=== PATIENT | female | born 1945 | race Caucasian/White ===

== ENCOUNTER 2023-08-19 11:52 | Outpatient (REF) | payer MEDICARE, SELFPAY | END 2023-08-19 11:53 | disposition home or self-care (01) | LOC: HO.LNP 11:52 | PROVIDERS: Visit Provider Internal Medicine | DX: Z00.00 Encounter for general adult medical examination without abnormal findings (principal); E11.9 Type 2 diabetes mellitus without complications; E55.9 Vitamin D deficiency, unspecified; I10 Essential (primary) hypertension; R82.90 Unspecified abnormal findings in urine | CPT/HCPCS: 80053; 80061; 81001; 82043; 82306; 82570; 83036; 85025; 87086 ==

== ENCOUNTER 2023-09-25 10:45 | Outpatient (REF) | payer MEDICARE, SELFPAY ==
[2023-09-25 11:00] LABS: Appearance Urine Clear; Color Urine Yellow; Glucose Urine UA Negative (Negative); Leukocyte Esterase Urine Small (1+) (Negative); Nitrite Urine Negative (Negative); Specific Gravity - Urine <= 1.005 (1.005-1.025); UMIC TRIGGER UACC YES; Urine Blood Negative (Negative); Urine Ketones Negative (Negative); Urine Protein 30 (1+) mg/dL (Neg-Trace)
[2023-09-25 11:03] LABS: Bacteria Urine 4+ (None Seen); Hyaline Casts Urine 0-2 /LPF (0-2); RBC Urine 0-2 /HPF (0-2); Squamous Epithelial Cell Urine 0-2 /HPF (0-2); UACC Culture Trigger YES
== END 2023-09-25 10:46 | disposition home or self-care (01) ==
LOC: HO.LNP 10:45
PROVIDERS: Visit Provider Internal Medicine
DX: R31.9 Hematuria, unspecified (principal)
CPT/HCPCS: 81001; 81003; 87086; 87088; 87186

== ENCOUNTER 2024-02-17 11:29 | Outpatient (REF) | payer MEDICARE, SELFPAY ==
[2024-02-17 12:04] LABS: Alanine Aminotransferase 21 U/L (0-31); Albumin Level 3.9 g/dL (3.5-5.0); Alkaline Phosphatase 91 U/L (39-117); Aspartate Amino Transferase 26 U/L (5-31); Bilirubin Direct 0.3 mg/dL (0.0-0.5); Bilirubin Total 0.6 mg/dL (0.0-1.0); Cholesterol 142 mg/dL (<200); Glucose Fasting 201 mg/dL (60-99); HDL Cholesterol 52 mg/dL (>40); LDL Cholesterol Calculated 76 mg/dL (<100); Total Protein 6.5 g/dL (6.5-8.0); Triglycerides 74 mg/dL (<150)
[2024-02-17 12:16] LABS: Estimated Average Glucose 235 mg/dL; Hemoglobin A1c % 9.8 % (<6.0)
[2024-02-17 12:52] LABS: Reflex LDLD? No
== END 2024-02-17 11:30 | disposition home or self-care (01) ==
LOC: HO.LNP 11:29
PROVIDERS: Visit Provider Internal Medicine
DX: E11.9 Type 2 diabetes mellitus without complications (principal); E78.00 Pure hypercholesterolemia, unspecified
CPT/HCPCS: 80061; 80076; 82947; 83036

== ENCOUNTER 2024-08-24 11:14 | Outpatient (REF) | payer MEDICARE, SELFPAY ==
[2024-08-24 11:18] LABS: MANUAL DIFF FLAG NO
[2024-08-24 11:43] LABS: Basophils Absolute Auto 0.1 X10*3/uL (0.0-0.2); Basophils Percent Auto 0.8 % (0-2); Eosinophils Absolute Auto 0.3 X10*3/uL (0.0-0.4); Eosinophils Percent Auto 3.9 % (0-4); Hematocrit 38.6 % (37.0-47.0); Hemoglobin 12.6 g/dl (12.0-16.0); Imm Gran Abs Auto 0.01 X10*3/uL (0.00-0.03); Imm Gran Pct Auto 0.1 % (0.0-0.4); Lymphocytes Absolute Auto 3.1 X10*3/uL (1.2-4.9); Lymphocytes Percent Auto 41.4 % (20-40); Mean Corpuscular HGB Conc 32.6 g/dl (31.0-35.0); Mean Corpuscular Hemoglobin 31.5 pg (27.0-33.0); Mean Corpuscular Volume 96.5 fL (80.0-98.0); Mean Platelet Volume 11.5 fL (9.4-12.3); Monocytes Absolute Auto 0.6 X10*3/uL (0.1-1.2); Monocytes Percent Auto 8.4 % (2-11); Neutrophils Absolute Auto 3.4 x10*3/uL (2.0-8.3); Neutrophils Percent Auto 45.4 % (45-73); Platelet Count 220 X10*3/uL (160-400); Red Cell Distribution Width 12.6 % (11.0-16.0); White Blood Count 7.5 X10*3/uL (4.8-10.8)
[2024-08-24 11:55] LABS: Estimated Average Glucose 217 mg/dL; Hemoglobin A1C 254.1046 umol/L; Hemoglobin A1c % 9.2 % (<6.0); Total Hemoglobin (HGBA1C) 3278.7328 umol/L
[2024-08-24 12:07] LABS: Alanine Aminotransferase 18 U/L (0-31); Albumin Level 3.9 g/dL (3.5-5.0); Alkaline Phosphatase 87 U/L (39-117); Anion Gap 10 (12-20); Aspartate Amino Transferase 23 U/L (5-31); Bilirubin Total 0.4 mg/dL (0.0-1.0); Blood Urea Nitrogen 17 mg/dL (9-16); Calcium 9.7 mg/dL (8.4-10.2); Carbon Dioxide 29 mmol/L (22-29); Chloride 105 mmol/L (96-108); Cholesterol 141 mg/dL (<200); Estimated Glomerular Filt Rate > 60; Glucose Fasting 153 mg/dL (60-99); HDL Cholesterol 52 mg/dL (>40); Iron 141 mcg/dL (30-160); LDL Cholesterol Calculated 71 mg/dL (<100); Percent Iron Saturation 53 % (15-50); Sodium 139 mmol/L (135-145); Total Iron Binding Capacity 267 mcg/dL (228-428); Total Protein 6.6 g/dL (6.5-8.0); Triglycerides 93 mg/dL (<150); Unsaturated Iron Binding 126 ug/dL
[2024-08-24 12:12] LABS: Vitamin D 25-OH Total 69.5 ng/mL (>30)
== END 2024-08-24 11:15 | disposition home or self-care (01) ==
LOC: HO.LNP 11:14
PROVIDERS: Visit Provider Internal Medicine
DX: Z00.00 Encounter for general adult medical examination without abnormal findings (principal); E11.9 Type 2 diabetes mellitus without complications; I10 Essential (primary) hypertension; E78.00 Pure hypercholesterolemia, unspecified; E55.9 Vitamin D deficiency, unspecified
CPT/HCPCS: 80053; 80061; 82306; 83036; 83540; 85025

== ENCOUNTER 2025-02-25 09:55 | Outpatient (REF) | payer MEDICARE, SELFPAY ==
[2025-02-25 10:14] LABS: Estimated Average Glucose 237 mg/dL; Hemoglobin A1C 291.8024 umol/L; Hemoglobin A1c % 9.9 % (<6.0)
--- OUTSIDE RECORDS SUMMARY | 2025-02-25 10:37 | XMS_ITS | Patient Health Record ---
Author Organization Nikita Tran MD Address [address] [place], [place] [phone] Care Team Providers Care Dish Carrier Name Role Phone Nikita Tran Primary Care Provider [phone] Allergies Allergen (clinical drug ingredient) Drug/Non Drug Allergy documented on EMR Reaction Allergy Type Onset Date Status Latex Gloves redness above lip and on top of ears Drug Allergy Active Results Component Value Reference Range Notes Glucose, finger stick Reviewed date:03/11/2024 01:32:05 PM Interpretation: Performing Lab: Notes/Report: Value 163 Hemoglobin A1c (Not yet revi ewed by provider) Interpretation: Performing Lab:[facility], [address] [place] [phone] Notes/Report: Hemoglobin A1c % 9.9 <6.0 % [...] average glucose, using the formula of the N1E-Htljmxd Average Glucose study (ADAG), Diabetes Care, Vol.31,#8, Jun. 2007 Glucose, finger stick Reviewed date:02/27/2024 10:14:04 AM Interpretation: Performing Lab: Notes/Report: Value 215 Complete Blood Count Auto Di ff Reviewed date:08/25/2024 06:49:53 PM Interpretation: Performing Lab:[facility], [address] [place] [phone] Notes/Report: White Blood Count 7.5 4.8-10.8 X10*3/uL [...] NRBC Abs Auto 0.000 0.0-0.012 X10*3/uL Comprehensive [place]. Panel Fa st Reviewed date:08/25/2024 06:51:45 PM Interpretation: Performing Lab:[facility], [address] [place] [phone] Notes/Report: Sodium 139 135-145 mmol/L Potassium 5.0 3.3-5.1 mmol/L Chloride 105 96-108 mmol/L Carbon Dioxide 29 22-29 mmol/L Anion Gap 10 12-20 Blood Urea Nitrogen 17 9-16 mg/dL Creatinine 0.85 0.5-1.4 mg/dL Estimated Glomerular Filt Rate > 60 NOTE: For -Montserratian individuals, multiply the result by 1.210. Chronic [...] PROFILE Reviewed date:08/25/2024 02:19:02 PM Interpretation: Performing Lab:[address] [phone] Notes/Report: Iron 141 30-160 mcg/dL Total Iron Binding Capacity 267 228-428 mcg/d L Percent Iron Saturation 53 15-50 % Unsaturated Iron Binding 126 Lipid Panel Reviewed date:08/25/2024 02:20:07 PM Interpretation: Performing Lab:[facility], [address] [place] [phone] Notes/Report: Triglycerides 93 <150 mg/dL Desirable Triglyceride: [...] Total Reviewed date:08/25/2024 02:20:37 PM Interpretation: Performing Lab:[facility], [address] [place] [phone] Notes/Report: Vitamin D 25-OH Total 69.5 >30 [...] A1c Reviewed date:08/25/2024 02:19:59 PM Interpretation: Performing Lab:[facility], [address] [place] [phone] Notes/Report: Hemoglobin A1c % 9.2 <6.0 % [...] average glucose, using the formula of the P3V-Lnyujmt Average Glucose study (ADAG), Diabetes Care, Vol.31,#8, Jun. 2007 Glucose, finger stick Reviewed date:08/31/2024 12:50:28 PM Interpretation: Performing Lab: Notes/Report: Value 126 Jamie Miguel A Reviewed date:08/25/2024 02:18:12 PM Interpretation: Performing Lab:[facility], [address] [place] [phone] Notes/Report: Hold Gold See Note Specimen held untested for 24 hours; Call to request Chemistry testing. Hold Gold (Not yet reviewed by provider) Interpretation: Performing Lab:[facility], [address] [place] [address], [place] [phone] Notes/Report: Jamie Gold See Note Specimen held untested for 24 hours; Call to request Chemistry testing. Reason For Referral No Information Medications Medication SIG (Take, Route, Frequency, Duration) Notes Start Date End Date Status glipiZIDE 10 MG take 1 tablet by tamanna th twice a day Orally twice a day for 90 days Active Metoprolol Succinate ER 100 mg take 1 tablet daily Orally Once a day for 90 days Active Atorvastatin Calcium 40 mg take 1 tablet daily Orally Once a day for 90 days Active metFORMIN HCl ER 500 mg 2 tablet Orally twice a day for 90 days Active Vitamin D 50 MCG (1999) 1 tablet Orally Once a day for 30 day(s) 03/07/2020 Active Valsartan-hydroCHLOROthia zide 160-12.5 MG TAKE 1 TABLET ONCE DAILY for 90 Active OneTouch Ultra - USE TO TEST BLOOD HAGAN GAR THREE TIMES A DAY 2 to 3 times per day for 90 days Active Triamcinolone Acetonide 0.025 % 1 application to affected area Externally once a day or as needed Not-Taking Immunizations Vaccine Route Administration Date Status Comme nts Influenza High Dose IM Intramuscular 10/10/2018 Administer ed pt was given the vaccine at [facility] in [facility]. PPSV23 (Pnemovax) IM Intramuscular 01/12/2019 Administered Fluarix Quadrivalent IM Intramuscular 07/19/2019 Administe indio Lynnnar 13 IM Intramuscular 01/17/2020 Administered Influenza High Dose Unknown 08/31/2020 Administered [facility] SARS-COV-2 Pfizer Unknown 10/10/2021 Administered [facility] SARS-COV-2 Pfizer Unknown 12/19/2020 Administered SARS-COV-2 Pfizer Unknown 01/09/2021 Administered Influenza High Dose Unknown 09/27/2021 Administered SARS-COV-2 Pfizer Unknown 03/16/2022 Administered Influenza High Dose Unknown 10/24/[address] [facility] Influenza High Dose Unknown 08/11/2023 Administered [facility] SARS-COV-2 Pfizer Unknown 09/01/2024 [facility]ered [facility] Social History Tobacco Use: Social History Observation [...] ast year? No Points 0 Interpretation Negative Problems Problem Type SNOMED Code ICD Code Onset Dates Problem Status W/U Status Risk Notes Problem 89349548 Vitamin D defici ency (E55.9) Active confirmed Problem Perimenopausal disorder (874538059) Other specified menopausal and perimenopausal disorders (N95.8) Active confirmed Problem 67532938 Essential hypert ension (I10) Active confirmed Problem 016668280 Pure hypercholesterolemia (E78.00) Active confirmed Problem 434358940 Type 2 diabetes mellitus without complication, without long-term current use of insulin (E11.9) Active confirmed Problem 12127005 Hearing loss, unspecified hearing loss type, unspecified laterality (H91.90) Active confirmed Vital Signs Blood pressure diastolic 69 mm Hg 08/31/2024 bj ght is up 6 pounds since 06-04-24 Height 59.50 in 08/31/2024 weight is up 6 pounds since 06-04-24 Blood pressure systolic 172 mm Hg 08/31/2024 weig ht is up 6 pounds since 06-04-24 Weight 131 lbs 08/31/2024 weight is up 6 pounds since 06-04-24 BMI 26.01 kg/m2 08/31/2024 weight is up 6 pounds since 06-04-24 Encounters Encounter Location Date Provider Diagnosis Nikita Tran MD [address] [place] [phone] 03/11/2024 Nikita Tran Type 2 diabetes bettye itus without complication, without long-term current use of insulin E11.9 Nikita Tran MD [address] [place] [address] Drive [address] [place] [id number] 02/25/2025 Nikita Tran Pure hypercholestero lemia E78.00 and Type 2 diabetes mellitus without complication, without long-term current use of insulin E11.9 Nikita Tran MD [address] [place] [address] Drive [address] [place] [id number] 02/27/2024 Nikita Tran Type 2 diabetes bettye itus without complication, without long-term current use of insulin E11.9 and Essential hypertension I10 Nikita Tran MD [address] [id number] 06/04/2024 Nikita Tran Acute bronchitis, unspecified organism J20.9 Nikita Tran MD [address] [place] [id number] 07/29/2024 Nikita Tran Acute bronchitis, unspecified organism J20.9 Nikita Tran MD [address] [place] [address] [id number] 08/24/2024 Nikita Tran Blood tests for rout ine general physical examination Z00.00 ; Type 2 diabetes mellitus without complication, without long-term current use of insulin E11.9 ; Essential hypertension I10 ; Pure hypercholesterolemia E78.00 and Vitamin D deficiency E55.9 Nikita Tran MD [address] [place] [id number] 08/31/2024 Nikita Tran Type 2 diabetes bettye itus without complication, without long-term current use of insulin E11.9 ; Annual physical exam Z00.00 ; Essential hypertension I10 ; Pure hypercholesterolemia E78.00 ; Vitamin D deficiency E55.9 and Depression screening Z13.31 Nikita Tran MD [address] [place] [id number] 05/11/2024 Nikita Tran Essential hypertensi on I10 Assessments Encounter Date Diagnosis (ICD Code) Assessment Notes Treatment Notes Treatment Clinical Notes Section Notes 03/11/2024 Type 2 diabetes mellitus without complication, without long-term current use of insulin (ICD-10 - E11.9) not willing to take farxiga 02/25/2025 Pure hypercholesterolemia (ICD-10 - E78.00) 02/27/2024 Type 2 diabetes mellitus without complication, without long-term current use of insulin (ICD-10 - E11.9) stable, will continue current regiment 02/27/2024 Essential hypertensi on (ICD-10 - I10) stable, will continue current regiment 06/04/2024 Acute bronchitis, unspecified organism (ICD-10 - J20.9) patient verbalized understanding of medication and directions for use 07/29/2024 Acute bronchitis, unspecified organism (ICD-10 - J20.9) patient verbalized understanding of medication and directions for use 08/24/[address] ine general physical examination (ICD-10 - Z00.00) 08/24/2024 Type 2 diabetes mellitus without complication, without long-term current use of insulin (ICD-10 - E11.9) 08/31/2024 Type 2 diabetes mellitus without complication, without long-term current use of insulin (ICD-10 - E11.9) will watch for hypoglycemia. may need to go on insulin. running a1c a little high is better than having low sugars at age 79 08/31/2024 Annual physical exam (ICD-10 - Z00.00) labs reviewed and discussed with patient 05/11/2024 Essential hypertensi on (ICD-10 - I10) 02/25/2025 Type 2 diabetes mellitus without complication, without long-term current use of insulin (ICD-10 - E11.9) 08/24/2024 Essential hypertensi on (ICD-10 - I10) 08/31/2024 Essential hypertensi on (ICD-10 - I10) running good at home. gets anxious here, will continue to monitor and will contonue current regiment 08/24/2024 Pure hypercholesterolemia (ICD-10 - E78.00) 08/31/2024 Pure hypercholesterolemia (ICD-10 - E78.00) stable, will continue current regiment 08/24/2024 Vitamin D deficiency (ICD-10 - E55.9) 08/31/2024 Vitamin D deficiency (ICD-10 - E55.9) [place], at goal, will contiue current regiment 08/31/2024 Depression screening (ICD-10 - Z13.31) negative screen Plan Of Treatment Pending Test Test Name Order Date Electrocardiogram (EKG) 01/15/2019 MAMMOGRAM DIGITAL BILATERAL SCREEN 08/26 Liver Panel 02/25/2025 Glucose Fasting 02/25/2025 Lipid Panel with Reflex 02/25/2025 Microalbumin, Random 08/24/2024 Hold Gold 02/25/2025 Hemoglobin A1c 02/25/2025 UA ClnCatch+Micro w/rflx Cult 08/24/2024 Next Appt Details Provider Name:Nikita peralta, 03/10/2025 01:45:00 PM, [address] [facility], [address], [place], [place], [phone], Provider Name:Nikita Ralph Sheila ier, 08/26/2025 07:30:00 AM, [address] [place] [address], [address], [place], [phone], Provider Name:Nikita Sosa ier, 09/02/2025 12:45:00 PM, [address] [place] [address], [address], [place], [place], [phone], Insurance Providers Payer Name Payer Address Payer Phone Subscriber Number Group Number Insured Name Patient Relationship to Insured Coverage Start Date Coverage End Date [employer] [facility] [address] [place], [place] [phone] [id number] Nita Calvo Self - patient is the insured MEDICARE NHIC [address] [place] [address] [id number] Nita Calvo Self - patient is the insured Medical (General) History Surgical History Surgery Date(Month/Year) tubal ligation 1974 bilateral cataract extraction 2013
--- OUTSIDE RECORDS SUMMARY | 2025-02-25 10:38 | XMS_ITS ---
Author Organization Nikita Tran MD Address [address] [place] [phone] Care Team Providers Care Fence Maker Name Role Phone Nikita Tran Primary Care Provider [phone] Results Component Value Reference Range Notes Hemoglobin A1c (Not yet revi ewed by provider) Interpretation: Performing Lab:[facility], [address] [place] [phone] Notes/Report: Hemoglobin A1c % 9.9 <6.0 % [...] average glucose, using the formula of the G7K-Fmwtwhz Average Glucose study (ADAG), Diabetes Care, Vol.31,#8, Jun. 2007 REASON FOR VISIT fasting lipids Encounters Encounter Location Date Provider Diagnosis Nikita Tran MD [address] [place] [phone] 02/25/2025 Nikita Tran Pure hypercholestero lemia E78.00 and Type 2 diabetes mellitus without complication, without long-term current use of insulin E11.9 Assessments Encounter Date Diagnosis (ICD Code) Assessment Notes Treatment Notes Treatment Clinical Notes Section Notes 02/25/2025 Pure hypercholesterolemia (ICD-10 - E78.00) 02/25/2025 Type 2 diabetes bettye itus without complication, without long-term current use of insulin (ICD-10 - E11.9) Plan Of Treatment Pending Test Test Name Order Date Liver Panel 02/25/2025 Glucose Fasting 02/25/2025 Lipid Panel with Reflex 02/25/2025 Hemoglobin A1c 02/25/2025 Next Appt Details Provider Name:Nikita Sosa iehossein, 03/10/2025 01:45:00 PM, [address] [place] [address], [address] [place] [address], [phone], Provider Name:Nikita peralta, 08/26/2025 07:30:00 AM, [address] [place] [address], Suite [facility], [place], [place], [phone], Provider Name:Nikita peralta, 09/02/2025 12:45:00 PM, [address] [place] [address], Suite [facility], [place], [place], [phone], Progress Notes * Natanael GUERREROStephanieB:[birth year] (79 yo F)Acc No.[id number]:02/25/2025 Progress Note Patient:Nita LAZARO Provider:?Nikita Tran MD :1945???Age:79 Y???Sex:Female D ate:02/25/2025 Address:[address] [place], [place] [phone] Subjective: * Chief Complaints: * ???1. Fasting lipids. * Medical History:? Objective: * Vitals:? Assessment: * Assessment: 1.?Pure hypercholesterolemia - E78.00 (Primary)???2.?Type 2 diabetes mellitus without complication, without long-term current use of insulin - E11.9??? Plan: * Treatment: 2.?Type 2 diabetes mellitus without complication, without long-term current use of insulin?LAB: Liver Panel ?LAB: Glucose Fasting ?LAB: Lipid Panel with Reflex ?LAB: Hemoglobin A1c (Collection Date & Time - 02/25/2025 07:30 AM) * Procedure Codes:?72884 VENIP UNCT, ROUTINE* * * The named appointment provid er may or may not be the originator of this progress note, and it is not deemed complete until electronically signed by the appointment provider. Sign off status: Pending * Provider:?Nikita Tran MD Date:?0 02/25/2025 Generated for Alcira tomlinson/Aayush/Demetriaitting on:?02/25/2025 10:38 AM EDT
--- OUTSIDE RECORDS SUMMARY | 2025-02-25 10:38 | XMS_ITS ---
Author Organization Nikita Tran MD Address [address] [place] [phone] Care Team Providers Care Old Testament Professor Name Role Phone Nikita Tran Primary Care Provider [phone] Allergies Allergen (clinical drug ingredient) Drug/Non Drug Allergy documented on EMR Reaction Allergy Type Onset Date Status Latex Gloves redness above lip and on top of ears Drug Allergy Active Results Component Value Reference Range Notes Glucose, finger stick Reviewed date:08/31/2024 12:50:28 PM Interpretation: Performing Lab: Notes/Report: 0 Value 126 REASON FOR VISIT annual visit [...] Location Date Provider Diagnosis Nikita Tran MD [address] [place] [address] [place] [phone] 08/31/2024 Nikita Tran Type 2 diabetes bettye [...] 6 Months, Reason: Provider Name:Nikita Sosa ier, 03/10/2025 01:45:00 PM, [address] [place] [address], [address], [place], [place], [phone], Provider Name:Nikita peralta, 08/26/2025 07:30:00 AM, [address] [place] [address], [address], [place], [place], [phone], Provider Name:Nikita hardenr, 09/02/2025 12:45:00 PM, [address] [place] [address], [address], [place], [place], [phone], Progress Notes * Sherice GUERREROB:[birth year] (79 yo F)Acc No.[id number]:08/31/2024 Progress Notes Patient:?SergeichaparroNatanaela Provider:?Nikita Tran MD :1945???Age:79 Y???Sex:Female D ate:08/31/2024 Address:[address] [place] [phone] Subjective: * Chief Complaints: * ???Annual visit * HPI: ???Depression Screening:?PHQ-9?Little interest or pleasure in doing things?Not at all,?Feeling down, depressed, or hopeless?Not at all,?Trouble falling or staying asleep, or sleeping too much?Not at all,?Feeling tired or having little energy?Not at all,?Poor appetite or overeating?Not at all,?Feeling bad about yourself or that you are a failure, or have let yourself or your family down?Not at all,?Trouble concentrating on things, such as reading the newspaper or watching television?Not at all,?Moving or speaking so slowly that other people could have noticed; or the opposite, being so fidgety or restless that you have been moving around a lot more than usual?Not at all,?Thoughts that you would be better off or of hurting yourself in some way?Not at all,?Total Score?0.?Interpretation and Intervention?Depression Screening Findings?Negative,?Follow-Up for Depression?: review of PHQ-9 found negative result, no follow-up needed.?Communication Needs:?Communication Needs?Does the patient have a hearing impairment?No,?Does the patient have a vision impairment??Yes,?If yes, what is the vision impairment??Glasses,?Does the patient have a cognition impairment??No.?Fall Risk:?History?Have you had any falls with injury in the past year??No,?Have you had two or more falls in the past year??No.?SDOH Questions:?SDOH Questions?In the past year have you been worried about losing housing??No,?In the past year have you or any family members you live with been unable to get any of the following when it was really needed? Check all that apply:?None.?Symptom(s):? patient is a 79 yo female here for annual visit with review of recent labs and follow up of chronoc issues, doing better. antibiotics fixed her. * ROS:?General/Constitutional:?Patient denies?fatigue , headache.?Change in appetite?denies.?Chills?denies.?Fever?denies.?Ophthalmologic:?Blurred vision?denies.?Discharge?denies.?Pain?denies.?ENT:?Patient denies?decreased sense of smell , any loss of taste , sore throat.?Decreased hearing?denies.?Sore throat?denies.?Swollen glands?denies.?Endocrine:?Cold intolerance?denies.?Excessive thirst?denies.?Heat intolerance?denies.?Weight loss?denies.?Respiratory:?Cough?denies.?Shortness of breath at rest?denies.?Shortness of breath with exertion?denies.?Wheezing?denies.?Cardiovascular:?Chest pain at rest?denies.?Chest pain with exertion?denies.?Irregular heartbeat?denies.?Shortness of breath?denies.?Gastrointestinal:?Abdominal pain?denies.?Change in bowel habits?denies.?Diarrhea?denies.?Nausea?denies.?Rectal bleeding?denies.?Vomiting?denies .?Genitourinary:?Blood in urine?denies.?Difficulty urinating?denies.?Frequent urination?denies.?Urinary incontinence?Denies.?Musculoskeletal:?Patient denies?muscle aches.?Painful joints?denies.?Weakness?denies.?Peripheral Vascular:?Patient denies?red and blue toes.?Skin:?Dry skin?denies.?Itching?denies.?Denies?Mole(s),? changes in moles, new moles or any lesions of concern.?Denies?Photosensitivity.?Rash?denies.?Neurologic:?Dizziness?denies.?Fainting?denies.?Headache?denies.? * Medical History:? * Surgical History:? * Hospitalization/Major Diagno stic Procedure:? * Family History:?Father: dece ased 72 yrs, diagnosed with COPD.?Mother: 91 yrs.?1 brother(s) , 4 sister(s) . 2 son(s) , 1 daughter(s) . .? 1 sister had double mastectomy( 2 years ago). * Social History:?Tobacco Use:?Tobacco Use/Smoking?Patient is a?former smoker,?How long has it been since you last smoked??> 10 years,?Additional Findings: Tobacco Non-User?Former smoker, currently using no form of tobacco.?Drugs/Alcohol:?Alcohol Screen?Did you have a drink containing alcohol in the past year??No,?Points?0,?Interpretation?Negative.?Miscellaneous:?Caffeine: yes, 1-2 cups per day. Children: yes. Exercise: yes, 2-3 times per week walks. Housing: owning. Living with: spouse. Marital status: . Occupation: works full-time. Pets: dogx1. no Travel outside of the [place]. * Medications:?TakingValsartan -hydroCHLOROthiazide 160-12.5 MG Tablet 1 tablet Orally Once [...] Once a dayTaking Vitamin D 50 MCG (1999) Tablet 1 tablet Orally Once a dayTaking [...] reviewed and reconciled with the patient * Allergies:?Latex Gloves: red ness above lip and on top of ears - Allergyyes[Allergies Verified] Objective: * Vitals:?Ht: 59.50, Wt: 131, BMI:26.01, BP:172/69, Repeat BP:160/65, Wt-k.42 weight is up 6 pounds since 06-04-24. * ???Past Orders: ???Lab:Complete Blood Count Auto Diff (Order Date - 08/24/2024) (Collection Date - 08/24/2024) ? Value Reference Range ?White Blood Count 7.5 4. 8-10.8 - X10*3/uL ?Red Blood Count 4.00 L 4.20 -5.50 - X10*6/uL ?Hemoglobin 12.6 12.0-16.0 - g/dl ?Hematocrit 38.6 37.0-47.0 - % ?Mean Corpuscular Volume 96.5 80.0-98.0 - fL ?Mean Corpuscular Hemoglobin 31.5 27.0-33.0 - pg ?Mean Corpuscular HGB Conc 32.6 31.0-35.0 - g/dl ?Red Cell Distribution Width 12.6 11.0-16.0 - % ?Platelet Count 220 160-4 00 - X10*3/uL ?Mean Platelet Volume 11.5 9.4-12.3 - fL ?Neutrophils Percent Auto 45.4 45-73 - % ?Imm Gran Pct Auto 0.1 0. 0-0.4 - % ?Lymphocytes Percent Auto 41.4 H 20-40 - % ?Monocytes Percent Auto 8.4 2-11 - % ?Eosinophils Percent Auto 3.9 0-4 - % ?Basophils Percent Auto 0.8 0-2 - % ?NRBC Pct Auto 0.0 0.0-0. 2 - /100WBC ?Neutrophils Absolute Auto 3.4 2.0-8.3 - x10*3/uL ?Imm Gran Abs Auto 0.01 0. 00-0.03 - X10*3/uL ?Lymphocytes Absolute Auto 3.1 1.2-4.9 - X10*3/uL ?Monocytes Absolute Auto 0.6 0.1-1.2 - X10*3/uL ?Eosinophils Absolute Auto 0.3 0.0-0.4 - X10*3/uL ?Basophils Absolute Auto 0.1 0.0-0.2 - X10*3/uL ?NRBC Abs Auto 0.000 0.0-0. 012 - X10*3/uL ???Lab:Comprehensive [place]. P sebas Fast (Order Date - 08/24/2024) (Collection Date - 08/24/2024) ? Value Reference Range ?Sodium 139 135-145 - mmo l/L ?Bilirubin Total 0.4 0.0- 1.0 - mg/dL ?Aspartate Amino Transferase 23 5-31 - U/L ?Alanine Aminotransferase 18 0-31 - U/L ?Total Protein 6.6 6.5-8. 0 - g/dL ?Albumin Level 3.9 3.5-5. 0 - g/dL ?Alkaline Phosphatase 87 39-117 - U/L ?Potassium 5.0 3.3-5.1 - mmol/L ?Chloride 105 96-108 - mm ol/L ?Carbon Dioxide 29 22-29 - mmol/L ?Anion Gap 10 L 12-20 - ?Blood Urea Nitrogen 17 H 9-16 - mg/dL ?Creatinine 0.85 0.5-1.4 - mg/dL ?Estimated Glomerular Filt Rate > 60 - ?Glucose Fasting 153 H 60-9 9 - mg/dL ?Calcium 9.7 8.4-10.2 - m g/dL ???Lab:IRON PROFILE (Order D 08/24/2024) (Collection Date - 08/24/2024) ? Value Reference Range ?Iron 141 30-160 - mcg/dL ?Total Iron Binding Capacity 267 228-428 - mcg/dL ?Percent Iron Saturation 53 H 15-50 - % ?Unsaturated Iron Binding 126 - ug/dL ???Lab:Lipid Panel (Order Da 08/24/2024) (Collection Date - 08/24/2024) ? Value Reference Range ?Triglycerides 93 <150 - mg/dL ?Cholesterol 141 <200 - m g/dL ?LDL Cholesterol Calculated 71 <100 - mg/dL ?HDL Cholesterol 52 >40 - mg/dL ???Lab:Vitamin D 25-OH Total (Order 08/24/2024) (Collection Date - 08/24/2024) ? Value Reference Range ?Vitamin D 25-OH Total 69.5 >30 - ng/mL ???Lab:Hemoglobin A1c (Order - 08/24/2024) (Collection Date - 08/24/2024) ? Value Reference Range ?Hemoglobin A1c % 9.2 H <6. 0 - % ?Estimated Average Glucose 217 - mg/dL * Examination: ???General Examination: ?GENERAL APPEARANCE:?well developed, well nourished, in no acute distress.?HEAD:?normocephalic, atraumatic.?EYES:?pupils equal, round, reactive to light and accommodation, sclera non-icteric.?EARS:?normal.?ORAL CAVITY:?mucosa moist.?THROAT:?clear.?NECK/THYROID:?neck supple, full range of motion, no cervical lymphadenopathy, no bruits.?SKIN:?warm and dry, no suspicious lesions.?HEART:?regular rate and rhythm, S1, S2 normal, no murmurs.?LUNGS:?clear to auscultation bilaterally.?BREASTS:?No mass, no lump.?ABDOMEN:?soft, nontender, nondistended, bowel sounds present, normal, no organomegaly , no masses palpable.?RECTAL EXAM:?declined.?FEMALE GENITOURINARY:?declined.?EXTREMITIES:?no clubbing, cyanosis, or edema.?NEUROLOGIC:?nonfocal, motor strength normal upper and lower extremities, sensory exam intact.? Assessment: * Assessment: 1.?Annual physical exam - Z0 0.00 (Primary)?2.?Type 2 diabetes mellitus without complication, without long-term current use of insulin - E11.9?3.?Essential hypertension - I10 4.?Pure hypercholesterolemia - E78.00?5.?Vitamin D deficiency - E55.9?6.?Depression screening - Z13.31? Plan: * Treatment: 2.?Type 2 diabetes mellitus without complication, without long-term current use of insulin?LAB: Glucose, finger stick ? Value Reference Range ?Value 126 Notes: will watch for hypoglycemia. may [...] regiment??6.?Depression screening? Notes: negative screen?? * Procedure Codes:?54285 ASSAY , GLUCOSE, BLOOD QUANT, Modifiers: QW * Preventive Medicine:? ??Counseling:?Care goal follow-up plan:?Counseling for abnormal BMI provided?Yes,?Above Normal BMI Follow-up?Giving encouragement to exercise.? ??Diabetes Care Plan:?Patient Lifestyle Goals?Needs to maintain diet control.?Treatment Goals?A1C< 7.?Barriers ?Needs better diet control.?Self- Managment Plan?Increase light exercise to 3 times a week for 30 minutes.? * Follow Up:?6 Months * * Sign off status: Completed true * Provider:?Nikita Tran MD Date:?1 Generated for Alcira tomlinson/Aayush/eTransmitting on:?02/25/2025 10:38 AM EDT History and Physical Notes * [...] Total Score: 0 Interpretation and Intervention Depression Chayoe evelyne Findings: Negative Follow-Up for Depression: : review [...] patient have a vision impairmen t?: Yes ?If yes, what is the vision impairment?: Glasses Does the patient have a cognition impair ment?: No Examination Category Sub-Category Detail Notes Category Not es General Examination GENERAL APPEARANCE: well dev eloped, well nourished, in no acute distress HEAD: normocephalic, atrau matic EYES: pupils equal, round, reactive to light and accommodation, sclera non- icteric EARS: normal THROAT: clear NECK/THYROID: neck supple, [...]
--- OUTSIDE RECORDS SUMMARY | 2025-02-25 10:38 | XMS_ITS ---
Author Organization Nikita Tran MD Address [address] [place], [place] [phone] Care Team Providers Care Telecommunications Network Planner Name Role Phone Nikita Tran Primary Care Provider Results Component Value Reference Range Notes Complete Blood Count Auto Di ff Reviewed date:08/25/2024 06:49:53 PM Interpretation: Performing Lab:[facility], [address] [place] [phone] Notes/Report: White Blood Count 7.5 4.8-10.8 X10*3/uL [...] NRBC Abs Auto 0.000 0.0-0.012 X10*3/uL Comprehensive [place]. Panel Fa st Reviewed date:08/25/2024 06:51:45 PM Interpretation: Performing Lab:[facility], [address] [place] [phone] Notes/Report: Sodium 139 135-145 mmol/L Potassium 5.0 3.3-5.1 mmol/L Chloride 105 96-108 mmol/L Carbon Dioxide 29 22-29 mmol/L Anion Gap 10 12-20 Blood Urea Nitrogen 17 9-16 mg/dL Creatinine 0.85 0.5-1.4 mg/dL Estimated Glomerular Filt Rate > 60 NOTE: For -Bahamian individuals, multiply the result by 1.210. Chronic [...] PROFILE Reviewed date:08/25/2024 02:19:02 PM Interpretation: Performing Lab:[facility], [address] [place] [phone] Notes/Report: Iron 141 30-160 mcg/dL Total Iron Binding Capacity 267 228-428 mcg/d L Percent Iron Saturation 53 15-50 % Unsaturated Iron Binding 126 Lipid Panel Reviewed date:08/25/2024 02:20:07 PM Interpretation: Performing Lab:[facility], [address] [place] [phone] Notes/Report: Triglycerides 93 <150 mg/dL Desirable Triglyceride: [...] Total Reviewed date:08/25/2024 02:20:37 PM Interpretation: Performing Lab:[facility], [address] [place] [phone] Notes/Report: Vitamin D 25-OH Total 69.5 >30 [...] A1c Reviewed date:08/25/2024 02:19:59 PM Interpretation: Performing Lab:[facility], [address] [facility], [place] [address] Notes/Report: Hemoglobin A1c % 9.2 <6.0 % [...] average glucose, using the formula of the U6W-Rlzflzn Average Glucose study (ADAG), Diabetes Care, Vol.31,#8, Jun. 2007 REASON FOR VISIT yearly fasting labs Encounters Encounter Location Date Provider Diagnosis Nikita Tran MD [address] [place] [address] [place] [phone] 08/24/2024 Nikita Tran Blood tests for rout [...] deficiency (ICD-10 - E55.9) Plan Of Treatment Pending Test Test Name Order Date Microalbumin, Random 08/24/2024 UA ClnCatch+Micro w/rflx Cult 08/24/2024 Next Appt Details Provider Name:Nikita peralta, 03/10/2025 01:45:00 PM, [address] [place] [address], Suite [facility], [place], [place], [phone], Provider Name:Nikita peralta, 08/26/2025 07:30:00 AM, [address], [address], [place], [place], [phone], Provider Name:Nikita P Mickyandi ier, 09/02/2025 12:45:00 PM, [address] [facility], [address], [place], [phone], Progress Notes * Natanael GUERREROaDOB:[birth year] (79 yo F)Acc No.[id number]:08/24/2024 Progress Note Patient:?Nita Guerrero Provider:?Nikita Tran MD :1945???Age:79 Y???Sex:Female D ate:08/24/2024 Address:[address] [place], [place] [phone] Subjective: * Chief Complaints: * ???Yearly fasting labs * Medical History:? * Surgical History:? * Hospitalization/Major Diagno stic Procedure:? * Medications:? Objective: Assessment: * Assessment: 1.?Blood tests for routine g eneral physical examination - Z00.00 (Primary)?2.?Type 2 diabetes mellitus without complication, without long-term current use of insulin - E11.9?3. Essential hypertension - I10?4.?Pure hypercholesterolemia - E78.00?5.?Vitamin D deficiency - E55.9? Plan: * Treatment: 2.?Type 2 diabetes mellitus without complication, without long-term current use of insulin?LAB: Microalbumin, Random ?LAB: UA ClnCatch+Micro w/rflx Cult ?LAB: Complete Blood Count Auto Diff ?LAB: Comprehensive [place]. Panel Fast ?LAB: IRON PROFILE ?LAB: Lipid Panel ?LAB: Vitamin D 25-OH Total ?LAB: Hemoglobin A1c 3.?Essential hypertension?LAB: Microalbumin, Random ?LAB: UA ClnCatch+Micro w/rflx Cult ?LAB: Complete Blood Count Auto Diff ?LAB: Comprehensive [place]. Panel Fast ?LAB: IRON PROFILE ?LAB: Lipid Panel ?LAB: Vitamin D 25-OH Total ?LAB: Hemoglobin A1c 4.?Pure hypercholesterolemia ?LAB: Microalbumin, Random ?LAB: UA ClnCatch+Micro w/rflx Cult ?LAB: Complete Blood Count Auto Diff ?LAB: Comprehensive [place]. Panel Fast ?LAB: IRON PROFILE ?LAB: Lipid Panel ?LAB: Vitamin D 25-OH Total ?LAB: Hemoglobin A1c 5.?Vitamin D deficiency?LAB: Microalbumin, Random ?LAB: UA ClnCatch+Micro w/rflx Cult ?LAB: Complete Blood Count Auto Diff ?LAB: Comprehensive [place]. Panel Fast ?LAB: IRON PROFILE ?LAB: Lipid Panel ?LAB: Vitamin D 25-OH Total ?LAB: Hemoglobin A1c * Procedure Codes:?66591 VENIP UNCT, ROUTINE* * * Sign off status: Completed true * Provider:?Nikita Tran MD Date:?1 Generated for Alcira tomlinson/Aayush/eTransmitting on:?02/25/2025 10:37 AM EDT
[2025-02-25 11:07] LABS: Alanine Aminotransferase 23 U/L (0-31); Aspartate Amino Transferase 40 U/L (5-31); Bilirubin Direct 0.2 mg/dL (0.0-0.5); Bilirubin Total 0.5 mg/dL (0.0-1.0); Cholesterol 169 mg/dL (<200); Glucose Fasting 136 mg/dL (60-99); HDL Cholesterol 52 mg/dL (>40); LDL Cholesterol Calculated 87 mg/dL (<100); Total Protein 7.1 g/dL (6.5-8.0); Triglycerides 151 mg/dL (<150)
[2025-02-25 12:18] LABS: Reflex LDLD? No
[2025-02-25 19:47] LABS: Alkaline Phosphatase 101 U/L (39-117)
== END 2025-02-25 09:56 | disposition home or self-care (01) ==
LOC: HO.LNP 09:55
PROVIDERS: Visit Provider Internal Medicine
DX: E78.00 Pure hypercholesterolemia, unspecified (principal); E11.9 Type 2 diabetes mellitus without complications
CPT/HCPCS: 80061; 80076; 82947; 83036

== ENCOUNTER 2025-08-26 09:51 | Outpatient (REF) | payer MEDICARE, SELFPAY ==
--- OUTSIDE RECORDS SUMMARY | 2024-05-17 12:00 | XMS_ITS ---
Author Organization Nikita Tran MD Address [address] [facility] [address] [place] [phone] Care Team Providers Care Compliance Technician Name Role Phone Nikita Tran Primary Care Provider Allergies Allergen (clinical drug ingredient) Drug/Non Drug Allergy documented on EMR Reaction Allergy Type Onset Date Status Latex Gloves redness above lip and on top of ears Drug Allergy Active REASON FOR VISIT 2 month Encounters Encounter Location Date Provider Diagnosis Nikita Tran MD [address] [place] [address] [place] [phone] 05/17/2024 Nikita Tran Plan Of Treatment Next Appt Details Provider Name:Nikita peralta, 09/02/2025 01:00:00 PM, [address] [place] [address], Suite [facility], [place], [place], [phone], Progress Notes * Natanael GUERREROaDOB:[birth year] (80 yo F)Acc No.[id number]:05/17/2024 Progress Notes Patient: Blaise Nita ANN Provider: Gilberto Tran MD :1945 A ge:78 Y S ex:Female Date:05/17/2024 Address:[address] [place], [place] [phone] Subjective: * Chief Complaints: * 1 . 2 month. * ROS: G eneral/Constitutional: Denies C hills. D enies F atigue. D enies F ever. D enies H eadache. E NT: Denies S ore throat. R espiratory: Denies C ough. D enies S hortness of breath at rest. D enies S hortness of breath with exertion. G astrointestinal: Denies D iarrhea. D enies N ausea. * Medical History: M edical History Verified. * Allergies: L atex Gloves: redness above lip and on top of ears - Allergy. Objective: * Vitals: Assessment: Plan: * Treatment: * * The named appointment provid er may or may not be the originator of this progress note, and it is not deemed complete until electronically signed by the appointment provider. Sign off status: Pending * Provider: Gilberto Tran MD Date: 0 05/17/2024 Generated for Alcira tomlinson/Aayush/Lana on: 11:27 AM EDT
--- OUTSIDE RECORDS SUMMARY | 2024-06-04 10:15 | XMS_ITS ---
Author Organization Nikita Tran MD Address [address] [place], [place] [phone] Care Team Providers Care Client Insights Consultant Name Role Phone Nikita Tran Primary Care Provider Allergies Allergen (clinical drug ingredient) Drug/Non Drug Allergy documented on EMR Reaction Allergy Type Onset Date Status Latex Gloves redness above lip and on top of ears Drug Allergy Active REASON FOR VISIT cough x 5 days, Audio [phone], c/o had a headache, sore throat, productive [...] 10 MG take 1 tablet by tamanna th twice a day Orally twice a day [...] Location Date Provider Diagnosis Nikita Tran MD [address] [place] [address] [address] [place], [place] [phone] 06/04/2024 Nikita Tran Acute bronchitis, unspecified organism [...] use Next Appt Details Provider Name:Nikita peralta, 09/02/2025 01:00:00 PM, [address] [place] [address], [address], [place], [place], [phone], Progress Notes * Sherice GUERREROB:[birth year] (78 yo F)Acc No.[id number]:06/04/2024 Patient: Nita Cisneros Provider: Gilberto Tran MD :1945 A ge:78 Y S ex:Female Date:06/04/2024 Address:[address] [place] [address] Subjective: * Chief Complaints: * C ough x 5 daysAudio [phone]/o had a headache, sore throat, productive cough, [...] Orally Once a dayVitamin D 50 MCG (1999 UT) Tablet 1 tablet Orally Once a dayOneTouch [...] Once a dayTaking Vitamin D 50 MCG (2000 UT) Tablet 1 tablet Orally Once a [...] Tran MD Date: 0 06/04/2024 Generated for Alcira tomlinson/Aayush/Lana on: 1 11:27 AM EDT History and Physical Notes * HPI (History of Present Illness) Category Sub-Category Detail Notes Category Not es Symptom(s) [facility] [address], [address] [...]
--- OUTSIDE RECORDS SUMMARY | 2024-07-29 07:45 | XMS_ITS ---
Author Organization Niikta Tran MD Address [address] [place], [place] [phone] Care Team Providers Care Grocery Department Manager Name Role Phone Nikita Tran Primary Care Provider Allergies Allergen (clinical drug ingredient) Drug/Non Drug Allergy documented on EMR Reaction Allergy Type Onset Date Status Latex Gloves redness above lip and on top of ears Drug Allergy Active REASON FOR VISIT sinuses drainging green mucus ,coughing congested no fever, tested neg for Covid phone [phone], c/o had a sore throat last week productive cough, runny nasal congestion x 1.5 weeks, Audio [phone] Medications Medication SIG (Take, Route, Frequency, Duration) [...] Location Date Provider Diagnosis Nikita Tran MD [address] [place] [address] [place] [phone] 07/29/2024 Nikita Tran Acute bronchitis, unspecified organism [...] Details Provider Name:Nikita peralta, 09/02/2025 01:00:00 PM, [address] [place] [address], Suite [facility], [place], [place], [phone], Progress Notes * Sherice GUERREROB:[birth year] (79 yo F)Acc No.[id number]:07/29/2024 Patient: Nita Cisneros Provider: Gilberto Tran MD :1945 A ge:79 Y S ex:Female Date:07/29/2024 Address:[address] [place], [place] [phone] Subjective: * Chief Complaints: * s inuses drainging green mucus ,coughing congested no fever, tested neg for Covid phone [phone]/o had a sore throat last week productive cough, [facility] [phone] * HPI: S ymptom(s): Telehealth L ocation of provider rendering services: [address], [address], L ocation of patient: a t address listed in demographics for today's visit, P atstuart identification confirmed using: N cecile, , SSN, [...] 07/29/2024 Generated for Alcira tomlinson/Aayush/Demetriaitting on: 1 11:27 AM EDT History and Physical Notes * HPI (History of Present Illness) Category Sub-Category Detail Notes Category Not es Symptom(s) Telehealth Location of [facility] rendering services:: [address], [address] [...]
--- OUTSIDE RECORDS SUMMARY | 2024-08-24 03:45 | XMS_ITS ---
Author Organization Nikita Tran MD Address [address] [place], [place] [phone] Care Team Providers Care Business Education Instructor Name Role Phone Nikita Tran Primary Care Provider [phone] Results Component Value Reference Range Notes Complete Blood Count Auto Di ff Reviewed date:08/25/2024 06:49:53 PM Interpretation: Performing Lab:[facility], [address] [place] [phone] Notes/Report: White Blood Count 7.5 4.8-10.8 X10*3/uL [...] NRBC Abs Auto 0.000 0.0-0.012 X10*3/uL Comprehensive [place]. Panel Fa st Reviewed date:08/25/2024 06:51:45 PM Interpretation: Performing Lab:[facility], [address] [place] [phone] Notes/Report: Sodium 139 135-145 mmol/L Potassium 5.0 3.3-5.1 mmol/L Chloride 105 96-108 mmol/L Carbon Dioxide 29 22-29 mmol/L Anion Gap 10 12-20 Blood Urea Nitrogen 17 9-16 mg/dL Creatinine 0.85 0.5-1.4 mg/dL Estimated Glomerular Filt Rate > 60 NOTE: For -English individuals, multiply the result by 1.210. Chronic [...] PROFILE Reviewed date:08/25/2024 02:19:02 PM Interpretation: Performing Lab:[facility], [address] [place] [phone] Notes/Report: Iron 141 30-160 mcg/dL Total Iron Binding Capacity 267 228-428 mcg/d L Percent Iron Saturation 53 15-50 % Unsaturated Iron Binding 126 Lipid Panel Reviewed date:08/25/2024 02:20:07 PM Interpretation: Performing Lab:[facility], [address] [place] [phone] Notes/Report: Triglycerides 93 <150 mg/dL Desirable Triglyceride: [...] Total Reviewed date:08/25/2024 02:20:37 PM Interpretation: Performing Lab:[facility], [address] [place] [phone] Notes/Report: Vitamin D 25-OH Total 69.5 >30 [...] A1c Reviewed date:08/25/2024 02:19:59 PM Interpretation: Performing Lab:[facility], [address] [facility], [place] [address] Notes/Report: Hemoglobin A1c % 9.2 <6.0 % [...] average glucose, using the formula of the T6S-Nzdvmll Average Glucose study (ADAG), Diabetes Care, Vol.31,#8, 2007 REASON FOR VISIT yearly fasting labs Encounters Encounter Location Date Provider Diagnosis Nikita Tran MD [address] [place] [address] [place] [phone] 08/24/2024 Nikita Tran Blood tests for rout [...] Details Provider Name:Nikita peralta, 09/02/2025 01:00:00 PM, [address] [facility], [address] [facility], [place], [place], [phone], Progress Notes * Crystal GUERRERO:[birth year] (79 yo F)Acc No.[id number]:08/24/2024 Progress Note Patient: Blaise ginaNita Provider: Gilberto Tran MD :1945 A ge:79 Y S ex:Female Date:08/24/2024 Address:[address] [place], [place] [phone] Subjective: * Chief Complaints: * Y early [...] Blood Count Auto Diff L AB: Comprehensive [place]. Panel Fast L AB: IRON PROFILE L AB: Lipid Panel L AB: Vitamin D 25-OH Total L AB: Hemoglobin A1c 3. E ssential hypertension L AB: Microalbumin, Random L AB: UA ClnCatch+Micro w/rflx Cult L AB: Complete Blood Count Auto Diff L AB: Comprehensive [place]. Panel Fast L AB: IRON PROFILE L AB: Lipid Panel L AB: Vitamin D 25-OH Total L AB: Hemoglobin A1c 4. P ure hypercholesterolemia L AB: Microalbumin, Random L AB: UA ClnCatch+Micro w/rflx Cult L AB: Complete Blood Count Auto Diff L AB: Comprehensive [place]. Panel Fast L AB: IRON PROFILE L AB: Lipid Panel L AB: Vitamin D 25-OH Total L AB: Hemoglobin A1c 5. V itamin D deficiency L AB: Microalbumin, Random L AB: UA ClnCatch+Micro w/rflx Cult L AB: Complete Blood Count Auto Diff L AB: Comprehensive [place]. Panel Fast L AB: IRON PROFILE L AB: Lipid Panel L AB: Vitamin D 25-OH Total L AB: Hemoglobin A1c * Procedure Codes: 3 6415 VENIPUNCT, ROUTINE* * * Sign off status: Completed true * Provider: Gilberto Tran MD Date: 1 Generated for Alcira tomlinson/Aayush/Lana on: 1 11:26 AM EDT
--- OUTSIDE RECORDS SUMMARY | 2024-08-31 09:00 | XMS_ITS ---
Author Organization Nikita Tran MD Address [address] [place], [place] [id number] Care Team Providers Care Tool And Fixture Repairer Name Role Phone Nikita Tran Primary Care [...] Date Provider Diagnosis Nikita Tran MD 10 [facility] [address] [place] [phone] 08/31/2024 Nikita Tran Type 2 diabetes bettye [...] Follow Up: 6 Months, Reason: Provider Name:Nikita Sosa ier, 09/02/2025 01:00:00 PM, [address], [address], [place], [place], [phone], Progress Notes * AIMEHEIDYNatanael LEYVAStephanieB:[birth year] (79 yo F)Acc No.[id number]:08/31/2024 Progress Notes Patient: Nita Cisneros Provider: Gilberto Tran MD :1945 A ge:79 Y S ex:Female Date:08/31/2024 Address:[address] [place], [place] [phone] Subjective: * Chief Complaints: * A nnual [...] Pets: [email or web address]. no Travel outside of the [place]. * Medications: T akingValsartan-hydroCHLOROthiazide 160-12.5 MG [...] Auto 0.000 0.0-0.012 - X10*3/uL L ab:Comprehensive [place]. Panel Fast (Order Date - 08/24/2024) (Collection [...] - ug/dL L ab:Lipid Panel (Order Date - 08/24/2024) (Collection Date - [...] Counseling: C are goal follow-up plan: C ounseling for abnormal BMI provided?Yes, Albert claytone Normal BMI Follow-up G iving encouragement to exercise. Diabetes Care Plan: P atient Lifestyle Goals N eeds to maintain diet control.?Treatment Goals A 1C< 7. B arriers N eeds better diet control. S elf-Managment Plan I ncrease light exercise to 3 times a week for 30 minutes. * Follow Up: 6 Months * * Sign off status: Completed true * Provider: Gilberto Tran MD Date: Generated for Alcira tomlinson/Aayush/eTransmitting on: 1 11:28 AM EDT History and Physical Notes * [...] had two or more falls in the st year?: No Communication Needs Communication Needs Does [...]
--- OUTSIDE RECORDS SUMMARY | 2025-02-25 03:30 | XMS_ITS ---
Author Organization Nikita Tran MD Address [address] [place], [place] [phone] Care Team Providers Care Forensic Audit Expert Name Role Phone Nikita Tran Primary Care Provider Results Component Value Reference Range Notes Liver Panel Reviewed date:02/28/2025 04:27:49 PM Interpretation: Performing Lab:[address] [phone] Notes/Report: Bilirubin Total 0.5 0.0-1.0 mg/dL Bilirubin Direct 0.2 0.0-0.5 mg/dL Aspartate Amino Transferase 40 5-31 U/L Alanine Aminotransferase 23 0-31 U/L Total Protein 7.1 6.5-8.0 g/dL Albumin Level 4.0 3.5-5.0 g/dL Alkaline Phosphatase 101 39-117 U/L Glucose Fasting Reviewed date:02/28/2025 04:27:41 PM Interpretation: Performing Lab:[address] [phone] Notes/Report: Glucose Fasting 136 60-99 mg/dL A fasting glucose of 126 mg/dl or greater on more than one occasion is considered diagnostic of diabetes. Lipid Panel with Reflex Reviewed date:02/28/2025 04:27:32 PM Interpretation: Performing Lab:[facility], [address] [place] [phone] Notes/Report: Triglycerides 151 <150 mg/dL Desirable Triglyceride: [...] A1c Reviewed date:02/25/2025 07:20:02 PM Interpretation: Performing Lab:[facility], [address] [place] [phone] Notes/Report: Hemoglobin A1c % 9.9 <6.0 % [...] average glucose, using the formula of the O3H-Bjnhncz Average Glucose study (ADAG), Diabetes Care, Vol.31,#8, Jun. 2007 REASON FOR VISIT fasting lipids Encounters Encounter Location Date Provider Diagnosis Nikita Tran MD [address] [place] [address] Drive [address] [place], [place] [phone] 02/25/2025 Nikita Tran Pure hypercholestero lemia E78.00 [...] Next Appt Details Provider Name:Nikita Sosa ier, 09/02/2025 01:00:00 PM, [address], [address], [place], [place], [phone], Progress Notes * Natanael GUERREROaDOB:[birth year] (80 yo F)Acc No.[id number]:02/25/2025 Progress Note Patient: Nita BOSS Provider: Gilberto Tran MD :1945 A ge:79 Y S ex:Female Date:02/25/2025 Address:[address] [place], [place] [phone] Subjective: * Chief Complaints: * 1 . [...] MD Date: 0 02/25/2025 Generated for Alcira tomlinson/Aayush/eTransmitting on: 1 11:27 AM EDT
--- OUTSIDE RECORDS SUMMARY | 2025-03-10 09:45 | XMS_ITS ---
Author Organization Nikita Tran MD Address [address] [place], [place] [phone] Care Team Providers Care Analysis Or Research Safety Inspector Name Role Phone Nikita Tran Primary Care Provider [phone] Allergies Allergen (clinical drug ingredient) Drug/Non Drug [...] Location Date Provider Diagnosis Nikita Tran MD [address] [place] [address] [place] [phone] 03/10/2025 Nikita Tran Type 2 diabetes bettye [...] Up: 6 month, Reason: Provider Name:Nikita peralta, 09/02/2025 01:00:00 PM, [address], [address], [place], [place], [phone], Progress Notes * Crystal GUERRERO:[birth year] (79 yo F)Acc No.[id number]:03/10/2025 Progress Notes Patient: Blaise WALLACEHEIDYNita LEYVA Provider: Gilberto Tran MD :1945 A ge:79 Y S ex:Female Date:03/10/2025 Address:[address] [place], [place] [phone] Subjective: * Chief Complaints: * 6 month [...] Once a day Vitamin D 50 MCG (1999 UT) Tablet [...] a day Taking Vitamin D 50 MCG (2000 UT) Tablet [...] 0 03/10/2025 Generated for Alcira tomlinson/Aayush/Demetriaitting on: 1 11:28 AM EDT History and [...]
--- OUTSIDE RECORDS SUMMARY | 2025-04-05 10:33 | XMS_ITS ---
Author Organization Nikita Tran MD Address [address] [place] [phone] Care Team Providers Care Figure Clerk Name Role Phone Nikita Tran Primary Care [...] Date Provider Diagnosis Nikita Tran MD [address] [place] [phone] 04/05/2025 Nikita Tran Type 2 diabetes mellitus [...] 90 days Next Appt Details Provider Name:Nikita Ralph Sheila peralta, 09/02/2025 01:00:00 PM, [address] [place] [address], [address], [place], [place], [phone], Progress Notes * CRISTIANNatanael ZEPEDAStephanieB:[birth year] (79 yo F)Acc No.[id number]:04/05/2025 Patient: Nita BOSS :1945 A ge:79 Y S ex:Female Address:[address] [place] [address], [address] * Refills Refill metFORMIN HCl ER Tablet [...] * Date: Generated for Alcira tomlinson/Aayush/Lana on: 11:28 AM EDT
--- OUTSIDE RECORDS SUMMARY | 2025-05-20 03:16 | XMS_ITS ---
Author Organization Nikita Tran MD Address [address] [place], [place] [phone] Care Team Providers Care Tile And Marble Installer Name Role Nikita Pereira Primary Care Provider REASON FOR VISIT Labs needed for Quality Encounters Encounter Location Date Provider Diagnosis Nikita Tran MD [address] [place], [place] [phone] 05/20/2025 Nikita Tran Plan Of Treatment Next Appt Details Provider Name:Nikita peralta, 09/02/2025 01:00:00 PM, [address], [address], [place], [place], [phone], Progress Notes * Sherice GUERREROB:[birth year] (79 yo F)Acc No.[id number]:05/20/2025 Patient: Blaise Nita ANN :1945 A ge:79 Y S ex:Female Address:[address] [place] [address], [address] * true * Date: Generated for Printi ng/Faxing/eTransmitting on: 1 11:27 AM EDT
--- OUTSIDE RECORDS SUMMARY | 2025-08-26 03:45 | XMS_ITS ---
Author Organization Nikita Tran MD Address [address] [place], [place] [phone] Care Team Providers Care Salon Professional Name Role Phone Nikita Tran Primary Care Provider Results Component Value Reference Range Notes Complete Blood Count Auto Di ff (Not yet reviewed by provider) Interpretation: Performing Lab:[facility], [address] [place] [phone] Notes/Report: White Blood Count 8.5 4.8-10.8 X10*3/uL [...] X10*3/uL NRBC Abs Auto 0.000 0.0-0.012 X10*3/uL Hemoglobin A1c (Not yet revi ewed by provider) Interpretation: Performing Lab:[facility], [address] [place] [phone] Notes/Report: Hemoglobin A1c % 8.6 <6.0 % [...] average glucose, using the formula of the [id number]-Qvjjpmp Average Glucose study (ADAG), Diabetes Care, Vol.31,#8, Jun. 2007 REASON FOR VISIT yearly fasting labs Encounters Encounter Location Date Provider Diagnosis Nikita Tran MD [address] [place] [address] [place] [phone] 08/26/2025 Nikita Tran Blood tests for rout [...] Treatment Pending Test Test Name Order Date Complete Blood Count Auto Diff Comprehensive [place]. Panel Fast Lipid Panel 08/26/2025 Vitamin D 25-OH Total 08/26/2025 Microalbumin, Random 08/26/2025 Hemoglobin A1c 08/26/2025 UA ClnCatch+Micro w/rflx Cult 08/26/2025 Next Appt Details Provider Name:Nikita Sosa ier, 09/02/2025 01:00:00 PM, [address] [facility], [address], [place], [place], [phone], Progress Notes * Natanael GUERREROaDOB:[birth year] (80 yo F)Acc No.[id number]:08/26/2025 Progress Note Patient: Nita BOSS Provider: Gilberto Tran MD :1945 A ge:80 Y S ex:Female Date:08/26/2025 Address:[address] [place] [address] Subjective: * Chief Complaints: * 1 . [...] long-term current use of insulin L AB: Complete Blood Count Auto Diff (Collection Date & Time - 08/26/2025 07:30 AM) L AB: Comprehensive [place]. Panel Fast L AB: Lipid Panel L AB: Vitamin D 25-OH Total L AB: Microalbumin, Random L AB: Hemoglobin A1c (Collection Date & Time - 08/26/2025 07:30 AM) L AB: UA ClnCatch+Micro w/rflx Cult 3. P ure hypercholesterolemia L AB: Complete Blood Count Auto Diff (Collection Date & Time - 08/26/2025 07:30 AM) L AB: Comprehensive [place]. Panel Fast L AB: Lipid Panel L AB: Vitamin D 25-OH Total L AB: Microalbumin, Random L AB: Hemoglobin A1c (Collection Date & Time - 08/26/2025 07:30 AM) L AB: UA ClnCatch+Micro w/rflx Cult 4. V itamin D deficiency L AB: Complete Blood Count Auto Diff (Collection Date & Time - 08/26/2025 07:30 AM) L AB: Comprehensive [place]. Panel Fast L AB: Lipid Panel L AB: Vitamin D 25-OH Total L AB: Microalbumin, Random L AB: Hemoglobin A1c (Collection Date & Time - 08/26/2025 07:30 AM) L AB: UA ClnCatch+Micro w/rflx Cult * Procedure Codes: 3 6415 VENIPUNCT, ROUTINE* * * The named appointment provid er may or may not be the originator of this progress note, and it is not deemed complete until electronically signed by the appointment provider. Sign off status: Pending * Provider: Gilberto Tran MD Date: 1 Generated for Alcira tomlinson/Aayush/Lana on: 11:27 AM EDT
[2025-08-26 09:59] LABS: MANUAL DIFF FLAG NO
[2025-08-26 10:20] LABS: Hematocrit 37.3 % (37.0-47.0); Hemoglobin 12.4 g/dl (12.0-16.0); Imm Gran Abs Auto 0.03 X10*3/uL (0.00-0.03); Imm Gran Pct Auto 0.4 % (0.0-0.4); Lymphocytes Absolute Auto 2.9 X10*3/uL (1.2-4.9); Mean Corpuscular HGB Conc 33.2 g/dl (31.0-35.0); Mean Corpuscular Hemoglobin 31.7 pg (27.0-33.0); Mean Corpuscular Volume 95.4 fL (80.0-98.0); NRBC Abs Auto 0.000 X10*3/uL (0.0-0.012); NRBC Pct Auto 0.0 /100WBC (0.0-0.2); Platelet Count 270 X10*3/uL (160-400); Red Blood Count 3.91 X10*6/uL (4.20-5.50); White Blood Count 8.5 X10*3/uL (4.8-10.8)
--- OUTSIDE RECORDS SUMMARY | 2025-08-26 11:27 | XMS_ITS | Patient Health Record ---
Author Organization Nikita Tran MD Address [address] [place], [place] [id number] Care Team Providers Care Sill Worker Name Role Phone Nikita Tran Primary Care Provider Allergies Allergen (clinical drug ingredient) Drug/Non Drug Allergy documented on EMR Reaction Allergy Type Onset Date Status Latex Gloves redness above lip and on top of ears Drug Allergy Active Results Component Value Reference Range Notes Liver Panel Reviewed date:02/28/2025 04:27:49 PM Interpretation: Performing Lab:[facility], [address] [place] [phone] Notes/Report: Bilirubin Total 0.5 0.0-1.0 mg/dL Bilirubin Direct 0.2 0.0-0.5 mg/dL Aspartate Amino Transferase 40 5-31 U/L Alanine Aminotransferase 23 0-31 U/L Total Protein 7.1 6.5-8.0 g/dL Albumin Level 4.0 3.5-5.0 g/dL Alkaline Phosphatase 101 39-117 U/L Glucose Fasting Reviewed date:02/28/2025 04:27:41 PM Interpretation: Performing Lab:[facility], [address] [place] [phone] Notes/Report: Glucose Fasting 136 60-99 mg/dL A fasting glucose of 126 mg/dl or greater on more than one occasion is considered diagnostic of diabetes. Lipid Panel with Reflex Reviewed date:02/28/2025 04:27:32 PM Interpretation: Performing Lab:[facility], [address] [place] [phone] Notes/Report: Triglycerides 151 <150 mg/dL Desirable Triglyceride: [...] A1c Reviewed date:02/25/2025 07:20:02 PM Interpretation: Performing Lab:[facility], [address] [place] [phone] Notes/Report: Hemoglobin A1c % 9.9 <6.0 % [...] average glucose, using the formula of the [id number] Average Glucose study (ADAG), Diabetes Care, Vol.31,#8, Jun. 2007 Complete Blood Count Auto Di ff (Not yet reviewed by provider) Interpretation: Performing Lab:[facility], [address] [place] [phone] Notes/Report: White Blood Count 8.5 4.8-10.8 X10*3/uL [...] revi ewed by provider) Interpretation: Performing Lab:[facility], [address] [place] [phone] Notes/Report: Hemoglobin A1c % 8.6 <6.0 % [...] average glucose, using the formula of the [id number] Average Glucose study (ADAG), Diabetes Care, Vol.31,#8, Jun. 2007 Glucose, finger stick Reviewed date:08/31/2024 12:50:28 PM Interpretation: Performing Lab: Notes/Report: Value 126 Glucose, finger stick Reviewed date:03/10/2025 01:39:17 PM Interpretation: Performing Lab: Notes/Report: Value 128 Hold Gold Reviewed date:02/25/2025 07:11:00 PM Interpretation: Performing Lab:[facility], [address] [place] [phone] Notes/Report: Hold Gold See Note Specimen held untested for 24 hours; Call to request Chemistry testing. Hold Gold (Not yet reviewed by provider) Interpretation: Performing Lab:[facility], [address] [place] [phone] Notes/Report: Hold Gold See Note Specimen held untested for 24 hours; Call to request Chemistry testing. Reason For Referral No Information Medications Medication SIG (Take, Route, Frequency, Duration) Notes Start Date End Date Status OneTouch Ultra - USE TO TEST BLOOD HAGAN GAR THREE TIMES A DAY 90 DAYS for 30 Active Vitamin D 50 MCG (1999 UT) 1 tablet Orally Once a day for 30 day(s) 03/07/2020 Active metFORMIN HCl ER 500 mg 2 tablet Orally twice a day for 90 days Active Triamcinolone Acetonide 0.025 % 1 application to affected area Externally once a day or as needed Not-Taking Valsartan-hydroCHLOROthia zide 160-12.5 MG TAKE 1 TABLET ONCE DAILY for 90 Active Metoprolol Succinate ER 100 mg take 1 tablet daily Orally Once a day for 90 days Active glipiZIDE 10 MG take 1 tablet by tamanna twice a day Orally twice a day for 90 days Active Atorvastatin Calcium 40 MG TAKE 1 TABLET ONCE DAILY for 90 Active Immunizations Vaccine Route Administration Date Status Comme nts Influenza High Dose IM Intramuscular 10/10/2018 Administer ed pt was given the vaccine at [facility] in [facility]. PPSV23 (Pnemovax) IM Intramuscular 01/12/2019 Administered Fluarix Quadrivalent IM Intramuscular 07/19/2019 Administe indio Lynnnar 13 IM Intramuscular 01/17/2020 Administered Influenza High Dose Unknown 08/31/2020 Administered Khang alvarez's SARS-COV-2 Pfizer Unknown 10/10/2021 Administered [facility] SARS-COV-2 [...] Problem Status W/U Status Risk Notes Problem 15122913 Vitamin D defici ency (E55.9) Active confirmed Problem Perimenopausal disorder (735800720) Other specified menopausal and perimenopausal disorders (N95.8) Active confirmed Problem 64796194 Essential hypert ension (I10) Active confirmed Problem 467244364 Pure hypercholesterolemia (E78.00) Active confirmed Problem 228497559 Type 2 diabetes mellitus without complication, without long-term current use of insulin (E11.9) Active confirmed Problem 56669090 Hearing loss, unspecified hearing loss type, unspecified laterality (H91.90) Active confirmed Vital Signs Blood pressure diastolic 60 mm Hg 03/10/2025 bj ght is down 3 pounds since 08-31-24 Height 59.50 in 03/10/2025 weight is down 3 pounds since 08-31-24 Blood pressure systolic 158 mm Hg 03/10/2025 weig ht is down 3 pounds since 08-31-24 Weight 128 lbs 03/10/2025 weight is down 3 pounds since 08-31-24 BMI 25.42 kg/m2 03/10/2025 weight is down 3 pounds since 08-31-24 Encounters Encounter Location Date Provider Diagnosis Nikita Tran MD [address] [place] [id number] 02/25/2025 Nikita Tran Pure hypercholestero lemia E78.00 and Type 2 diabetes mellitus without complication, without long-term current use of insulin E11.9 Nikita Tran MD [address] [place] [address] Drive [address] [place] [id number] 08/26/2025 Nikita Tran Blood tests for rout ine general physical examination Z00.00 ; Type 2 diabetes mellitus without complication, without long-term current use of insulin E11.9 ; Pure hypercholesterolemia E78.00 and Vitamin D deficiency E55.9 Nikita Tran MD [address] [place] [id number] 08/31/2024 Nikita Tran Type 2 diabetes bettye itus without complication, without long-term current use of insulin E11.9 ; Annual physical exam Z00.00 ; Essential hypertension I10 ; Pure hypercholesterolemia E78.00 ; Vitamin D deficiency E55.9 and Depression screening Z13.31 Nikita Tran MD [address] [place] [id number] 03/10/2025 Nikita Tran Type 2 diabetes bettye itus without complication, without long-term current use of insulin E11.9 and Pure hypercholesterolemia E78.00 Nikita Tran MD [address] [place] [id number] 04/05/2025 Nikita Tran Type 2 diabetes bettye itus without complication, without long-term current use of insulin E11.9 and Essential hypertension I10 Nikita Tran MD [address] [place] [phone] 05/20/2025 Nikita Tran Assessments Encounter Date Diagnosis (ICD Code) Assessment Notes Treatment Notes Treatment Clinical Notes Section Notes 02/25/2025 Pure hypercholesterolemia (ICD-10 - E78.00) 08/26/20[address] tests [address] ine general physical examination (ICD-10 - Z00.00) 08/31/2024 Type 2 diabetes bettye itus without complication, without long-term current use of insulin (ICD-10 - E11.9) will watch for hypoglycemia . may need to go on insulin. running a1c a little high is better than having low sugars at age 79 08/31/2024 Annual physical exam (ICD-10 - Z00.00) labs reviewed and discussed with patient 03/10/2025 Type 2 diabetes bettye itus without complication, without long-term current use of insulin (ICD-10 - E11.9) running high, will continue current regiment, advised on diet and exercise, will continue to monitor 04/05/2025 Type 2 diabetes bettye itus without complication, without long-term current use of insulin (ICD-10 - E11.9) 02/25/2025 Type 2 diabetes bettye itus without complication, without long-term current use of insulin (ICD-10 - E11.9) 08/26/2025 Type 2 diabetes bettye itus without complication, without long-term current use of insulin (ICD-10 - E11.9) 08/31/2024 Essential hypertensi on (ICD-10 - I10) running good at home. gets anxious here, will continue to monitor and will contonue current regiment 03/10/2025 Pure hypercholesterolemia (ICD-10 - E78.00) stable, will cntinue current regiment 04/05/2025 Essential hypertensi on (ICD-10 - I10) 08/26/2025 Pure hypercholesterolemia (ICD-10 - E78.00) 08/31/2024 Pure hypercholesterolemia (ICD-10 - E78.00) stable, will continue current regiment 08/26/2025 Vitamin D deficiency (ICD-10 - E55.9) 08/31/2024 Vitamin D deficiency (ICD-10 - E55.9) stbale, at goal, will contiue current regiment 08/31/2024 Depression screening (ICD-10 - Z13.31) negative screen Plan Of Treatment Pending Test Test Name Order Date Electrocardiogram (EKG) 01/15/2019 MAMMOGRAM DIGITAL BILATERAL SCREEN 08/26 Complete Blood Count Auto Diff Comprehensive [place]. Panel Fast Lipid Panel 08/26/2025 Vitamin D 25-OH Total 08/26/2025 Microalbumin, Random 08/26/2025 Hold Gold 08/26/2025 Hemoglobin A1c 08/26/2025 UA ClnCatch+Micro w/rflx Cult 08/26/2025 Next Appt Details Provider Name:Nikita peralta, 09/02/2025 01:00:00 PM, [address] [place] [address], [address], [place], [place], [phone], Insurance Providers Payer Name Payer Address Payer Phone Subscriber Number Group Number Insured Name Patient Relationship to Insured Coverage Start Date Coverage End Date [employer] [address] [place], [place] [id number] Nita Calvo Self - patient is the insured [employer] [address] [place] [address] [id number] Nita Calvo Self - patient is the insured Medical (General) History Surgical History Surgery Date(Month/Year) tubal ligation 1974 bilateral cataract extraction 2013
[2025-08-26 13:01] LABS: Alanine Aminotransferase 18 U/L (0-31); Albumin Level 4.3 g/dL (3.5-5.0); Alkaline Phosphatase 91 U/L (39-117); Anion Gap 14 (12-20); Aspartate Amino Transferase 35 U/L (5-31); Blood Urea Nitrogen 21 mg/dL (9-16); Calcium 9.8 mg/dL (8.4-10.2); Carbon Dioxide 27 mmol/L (22-29); Chloride 105 mmol/L (96-108); Cholesterol 136 mg/dL (<200); Estimated Glomerular Filt Rate 59; HDL Cholesterol 47 mg/dL (>40); Potassium 4.6 mmol/L (3.3-5.1); Sodium 141 mmol/L (135-145); Total Protein 6.9 g/dL (6.5-8.0); Triglycerides 113 mg/dL (<150)
== END 2025-08-26 09:52 | disposition home or self-care (01) ==
LOC: HO.LNP 09:51
PROVIDERS: Visit Provider Internal Medicine
DX: Z00.00 Encounter for general adult medical examination without abnormal findings (principal); E11.9 Type 2 diabetes mellitus without complications; E78.00 Pure hypercholesterolemia, unspecified; E55.9 Vitamin D deficiency, unspecified
CPT/HCPCS: 80053; 80061; 82306; 83036; 85025

== ENCOUNTER 2025-09-02 14:57 | Outpatient (REF) | payer MEDICARE, SELFPAY ==
--- OUTSIDE RECORDS SUMMARY | 2024-06-04 10:15 | XMS_ITS ---
Author Organization Nikita Tran MD Address [address] [place], [place] [phone] Care Team Providers Care Special Deputy Sheriff Name Role Phone Nikita Tran Primary Care Provider Allergies Allergen (clinical drug ingredient) Drug/Non Drug Allergy documented on EMR Reaction Allergy Type Onset Date Status Latex Gloves redness above lip and on top of ears Drug Allergy Active REASON FOR VISIT cough x 5 days, Audio [phone], c/o had a headache, sore throat, productive cough, runny nose , congestion x days, Patient not sure if Covid test is positive thought she saw 2 lines, C/o drainage r eye x 1 day Medications Medication SIG (Take, Route, Frequency, Duration) Notes Start Date End Date Status Atorvastatin Calcium 40 mg take 1 tablet daily Orally Once a day for 90 days Active Zithromax Z-Barrington 250 MG 2 tablet on the irst day, then 1 tablet daily for 4 days Orally Once a day for 5 day(s) 06/04/2024 Active Vitamin D 50 MCG (1999) 1 tablet Orally Once a day for 30 day(s) 03/07/2020 Active OneTouch Ultra - USE TO TEST BLOOD HAGAN GAR THREE TIMES A DAY 2 to 3 times per day for 90 days Active Triamcinolone Acetonide 0.025 % 1 application to affected area Externally once a day or as needed Not-Taking Metoprolol Succinate ER 100 mg take 1 tablet daily Orally Once a day for 90 days Active glipiZIDE 10 MG take 1 tablet by tamanna twice a day Orally twice a day for 90 days Active metFORMIN HCl ER 500 mg 2 tablet Orally twice a day for 90 days Active Valsartan-hydroCHLOROthia zide 160-12.5 MG 1 tablet Orally Once a day for 90 days 02/27/2024 Active Vital Signs Height 59.50 in 06/04/2024 Weight 125 lbs 06/04/2024 BMI 24.82 kg/m2 06/04/2024 weight at home is 125 BP not taken today no temp Encounters Encounter Location Date Provider Diagnosis Nikita Tran MD [address] [place] [phone] 06/04/2024 Nikita Tran Acute bronchitis, unspecified organism J20.9 Assessments Encounter Date Diagnosis (ICD Code) Assessment Notes Treatment Notes Treatment Clinical Notes Section Notes 06/04/2024 Acute bronchitis, unspecified organism (ICD-10 - J20.9) patient verbalized understanding of medication and directions for use Plan Of Treatment Medication Medication Name Sig Start Date Stop Date Notes Zithromax Z-Barrington 250 MG 2 tablet on the f irst day, then 1 tablet daily for 4 days Orally Once a day for 5 day(s) 06/04/2024 Treatment Notes Assessment Notes Acute bronchitis, unspecified organism p atient verbalized understanding of medication and directions for use Next Appt Details Provider Name:Nikita peralta, 02/23/2026 08:00:00 AM, [address] [place] [address], [address], [phone], Provider Name:Nikita peralta, 03/03/2026 01:30:00 PM, [address] [place] [address], [phone], Provider Name:Nikita peralta, 08/29/2026 07:30:00 AM, [address] [place] [address], [phone], Provider Name:Nikita peralta, 09/05/2026 01:00:00 PM, [address] [place] [address], [phone], Progress Notes * Natanael GUERREROaDOB:[birth year] (78 yo F)Acc No.[id number]:06/04/2024 Patient: Nita Cisneros Provider: Gilberto Tran MD :1945 A ge:78 Y S ex:Female Date:06/04/2024 Address:[address] [place], [place] [phone] Subjective: * Chief Complaints: * C ough x 5 daysAudio [phone]/o had a headache, sore throat, productive cough, runny nose , congestion x days Patient not sure if Covid test is positive thought she saw 2 linesC/o drainage r eye x 1 day * HPI: S ymptom(s): Telehealth L ocation of provider rendering services: [address], [address], L ocation of patient: a t address listed in demographics for today's visit, P atient identification confirmed using: N cecile, , SSN, Insurance information, T elehealth method: T elephone only. Patient not visible to care provider., C onsent: P atient verbally consented to treatment, Patient verbally consented to billing insurance company, Patient informed of any privacy concerns related to method of visit. patient is a 78 yo female audio telehealth visit, has been sick for 5 days. checked covid and is negative. sore throat and pressure in ears. has a cough. yellow phlegm. no fever. is getting better. still congestion especially in the morning. * ROS: G eneral/Constitutional: Denies C hills. D enies F atigue. D enies F ever. A dmits H eadache. E NT: Patient denies d ecreased sense of smell, any loss of taste, sore throat. A dmits S ore throat. R espiratory: Admits C ough. D enies S hortness of breath at rest. D enies S hortness of breath with exertion. A dmits S putum production. D enies W heezing. G astrointestinal: Denies D iarrhea. D enies N ausea. M usculoskeletal: Patient denies m uscle aches. P eripheral Vascular: Patient denies r ed and blue toes. * Medical History: * Surgical History: * Hospitalization/Major Diagno stic Procedure: * Medications: T akingValsartan-hydroCHLOROthiazide 160-12.5 MG Tablet 1 tablet Orally Once a dayMetoprolol Succinate ER 100 mg Tablet Extended Release 24 Hour take 1 tablet daily Orally Once a dayglipiZIDE 10 MG Tablet take 1 tablet by mouth twice a day Orally twice a daymetFORMIN HCl ER 500 mg Tablet Extended Release 24 Hour 2 tablet Orally twice a dayAtorvastatin Calcium 40 mg Tablet take 1 tablet daily Orally Once a dayVitamin D 50 MCG (1999) Tablet 1 tablet Orally Once a dayOneTouch Ultra - Strip USE TO TEST BLOOD SUGAR THREE TIMES A DAY 2 to 3 times per dayTaking Valsartan-hydroCHLOROthiazide 160-12.5 MG Tablet 1 tablet Orally Once a dayTaking Metoprolol Succinate ER 100 mg Tablet Extended Release 24 Hour take 1 tablet daily Orally Once a dayTaking glipiZIDE 10 MG Tablet take 1 tablet by mouth twice a day Orally twice a dayTaking metFORMIN HCl ER 500 mg Tablet Extended Release 24 Hour 2 tablet Orally twice a dayTaking Atorvastatin Calcium 40 mg Tablet take 1 tablet daily Orally Once a dayTaking Vitamin D 50 MCG (1999 UT) Tablet 1 tablet Orally Once a dayTaking OneTouch Ultra - Strip USE TO TEST BLOOD SUGAR THREE TIMES A DAY 2 to 3 times per dayNot-Taking/PRNTriamcinolone Acetonide 0.025 % Cream 1 application to affected area Externally once a day or as neededNot-Taking/PRN Triamcinolone Acetonide 0.025 % Cream 1 application to affected area Externally once a day or as neededDiscontinuedFarxiga 5 MG Tablet 1 tablet Orally Once a dayMedication List reviewed and reconciled with the patientDiscontinued Farxiga 5 MG Tablet 1 tablet Orally Once a dayMedication List reviewed and reconciled with the patient * Allergies: L atex Gloves: redness above lip and on top of ears - Allergyyes[Allergies Verified] Objective: * Vitals: H t: 59.50, Wt:125, BMI:24.82 weight at home is 125 BP not taken today no temp. Assessment: * Assessment: 1. A cute bronchitis, unspecified organism - J20.9 (Primary) Plan: * Treatment: * Procedure Codes: * * Sign off status: Completed true * Provider: Gilberto Tran MD Date: 0 06/04/2024 Generated for Nghiai davi/Aayush/eTransmitting on: 1 04:38 PM EDT History and Physical Notes * HPI (History of Present Illness) Category Sub-Category Detail Notes Category Not es Symptom(s) Telehealth Location of [facility] rendering services:: [address], [address] patient is a 78 yo female audio telehealth visit, has been sick for 5 days. checked covid and is negative. sore throat and pressure in ears. has a cough. yellow phlegm. no fever. is getting better. still congestion especially in the morning Location of patient:: at address listed in demographics for today's visit Patient identification confirmed using:: Name, , SSN, Insurance information Telehealth method:: Telephone only. Nida ent not visible to care provider. Consent:: Patient verbally c onsented to treatment, Patient verbally consented to billing insurance company, Patient informed of any privacy concerns related to method of visit
--- OUTSIDE RECORDS SUMMARY | 2024-07-29 07:45 | XMS_ITS ---
Author Organization Nikita Tran MD Address [address] [place], [place] [phone] Care Team Providers Care Lab Tech Name Role Phone Nikita Tran Primary Care Provider [phone] Allergies Allergen (clinical drug ingredient) Drug/Non Drug Allergy documented on EMR Reaction Allergy Type Onset Date Status Latex Gloves redness above lip and on top of ears Drug Allergy Active REASON FOR VISIT sinuses drainging green mucus ,coughing congested no fever, tested neg for Covid phone [phone], c/o had a sore throat last week productive cough, runny nasal congestion x 1.5 weeks, Audio [phone] Medications Medication SIG (Take, Route, Frequency, Duration) [...] Location Date Provider Diagnosis Nikita Tran MD [address] [place] [phone] 07/29/2024 Nikita Tran Acute bronchitis, unspecified organism [...] Details Provider Name:Nikita peralta, 02/23/2026 08:00:00 AM, [address] [place] [address], [phone], Provider Name:Nikita peralta, 03/03/2026 01:30:00 PM, [address] [place] [address], [phone], Provider Name:Nikita peralta, 08/29/2026 07:30:00 AM, [address] [place] [address], [phone], Provider Name:Nikita peralta, 09/05/2026 01:00:00 PM, [address] [place] [address], [phone], Progress Notes * Crystal GUERRERO:[birth year] (79 yo F)Acc No.[id number]:07/29/2024 Patient: Nita Cisneros Provider: Gilberto Tran MD :1945 A ge:79 Y S ex:Female Date:07/29/2024 Address:[address] [place] [address] Subjective: * Chief Complaints: * s inuses drainging green mucus ,coughing congested no fever, tested neg for Covid phone [phone]/o had a sore throat last week productive cough, runny nasal congestion x 1.5 weeksAudio [phone] * HPI: S ymptom(s): Telehealth L ocation [...] 07/29/2024 Generated for Alcira tomlinson/Aayush/Demetriaitting on: 1 04:38 PM EDT History and Physical Notes * HPI (History of Present Illness) Category Sub-Category Detail Notes Category Not es Symptom(s) Telehealth Location of [facility] rendering services:: [address], [address] [...]
--- OUTSIDE RECORDS SUMMARY | 2024-08-24 03:45 | XMS_ITS ---
Author Organization Nikita Tran MD Address [address] [place], [place] [id number] Care Team Providers Care Mash Filter Operator Name Role Phone Nikita Tran Primary Care Provider Results Component Value Reference Range Notes Complete Blood Count Auto Di ff Reviewed date:08/25/2024 06:49:53 PM Interpretation: Performing Lab:[facility], [address] [place] [phone] Notes/Report: White Blood Count 7.5 4.8-10.8 X10*3/uL Red Blood Count 4.00 4.20-5.50 X10*6/uL Hemoglobin 12.6 12.0-16.0 g/dl Hematocrit 38.6 37.0-47.0 % Mean Corpuscular Volume 96.5 80.0-98.0 fL Mean Corpuscular Hemoglobin 31.5 27.0-33.0 pg Mean Corpuscular HGB Conc 32.6 31.0-35.0 g/dl Red Cell Distribution Width 12.6 11.0-16.0 % Platelet Count 220 160-400 X10*3/uL Mean Platelet Volume 11.5 9.4-12.3 fL Neutrophils Percent Auto 45.4 45-73 % Imm Gran Pct Auto 0.1 0.0-0.4 % Lymphocytes Percent Auto 41.4 20-40 % Monocytes Percent Auto 8.4 2-11 % Eosinophils Percent Auto 3.9 0-4 % Basophils Percent Auto 0.8 0-2 % NRBC Pct Auto 0.0 0.0-0.2 /100WBC Neutrophils Absolute Auto 3.4 2.0-8.3 x10*3/u L Imm Gran Abs Auto 0.01 0.00-0.03 X10*3/uL Lymphocytes Absolute Auto 3.1 1.2-4.9 X10*3/u L Monocytes Absolute Auto 0.6 0.1-1.2 X10*3/uL Eosinophils Absolute Auto 0.3 0.0-0.4 X10*3/u L Basophils Absolute Auto 0.1 0.0-0.2 X10*3/uL NRBC Abs Auto 0.000 0.0-0.012 X10*3/uL Comprehensive [place]. Panel Fa st Reviewed date:08/25/2024 06:51:45 PM Interpretation: Performing Lab:[facility], [address] [place] [phone] Notes/Report: Sodium 139 135-145 mmol/L Potassium 5.0 3.3-5.1 mmol/L Chloride 105 96-108 mmol/L Carbon Dioxide 29 22-29 mmol/L Anion Gap 10 12-20 Blood Urea Nitrogen 17 9-16 mg/dL Creatinine 0.85 0.5-1.4 mg/dL Estimated Glomerular Filt Rate > 60 NOTE: For -Honduran individuals, multiply the result by 1.210. Chronic Kidney Disease: Estimated GFR < 60 mL/min/1.73m2 Severe Kidney Disease: Estimated GFR < 15 mL/min/1.73m2 Glucose Fasting 153 60-99 mg/dL A fasting glucose of 126 mg/dl or greater on more than one occasion is considered diagnostic of diabetes. Calcium 9.7 8.4-10.2 mg/dL Bilirubin Total 0.4 0.0-1.0 mg/dL Aspartate Amino Transferase 23 5-31 U/L Alanine Aminotransferase 18 0-31 U/L Total Protein 6.6 6.5-8.0 g/dL Albumin Level 3.9 3.5-5.0 g/dL Alkaline Phosphatase 87 39-117 U/L IRON PROFILE Reviewed date:08/25/2024 02:19:02 PM Interpretation: Performing Lab:[facility], [address] [place] [phone] Notes/Report: Iron 141 30-160 mcg/dL Total Iron Binding Capacity 267 228-428 mcg/d L Percent Iron Saturation 53 15-50 % Unsaturated Iron Binding 126 Lipid Panel Reviewed date:08/25/2024 02:20:07 PM Interpretation: Performing Lab:[facility], [address] [place] [phone] Notes/Report: Triglycerides 93 <150 mg/dL Desirable Triglyceride: less than 150 mg/dL Borderline High Triglyceride 150-199 mg/dL High Triglyceride: 200-499 mg/dL Very High Triglyceride: greater than or equal to 5OO mg/dL Cholesterol 141 <200 mg/dL Desirable Cholesterol: less than 200 mg/dL Borderline High Cholesterol: 200-239 mg/dL High Cholesterol: greater than 239 mg/dL LDL Cholesterol Calculated 71 <100 mg/dL Desirable LDL: less than 100 mg/dL Near Optimal/Above Optimal LDL: 110-129 mg/dL Borderline High LDL: 130-159 mg/dL High LDL: 160-189 mg/dL Very High LDL: greater than or equal to 190 mg/dL HDL Cholesterol 52 >40 mg/dL Desirable HDL: greater than 40 mg/dL Note: This HDL assay may give artificially low results in patients with liver disease. Vitamin D 25-OH Total Reviewed date:08/25/2024 02:20:37 PM Interpretation: Performing Lab:[facility], [address] [place] [phone] Notes/Report: Vitamin D 25-OH Total 69.5 >30 ng/mL Health Based Reference Values* < 20 ng/mL Deficient 20-30 ng/mL Insufficient > 30 ng/mL Sufficient *Sheri BURKETT. N Engl J Med. 2007;357:266-280 Care must be taken in interpreting Vitamin D results from different laboratories and methodologies. Published data demonstrated that results from patients undergoing hemodialysis may show a negative bias when tested with various automated 25-OH vitamin D assays when compared to LC-MS/MS. When testing samples from patients whose predominant form of Vitamin D is Vitamin D2, such as patients receiving Vitamin D2 supplementation, results that are subtherapeutic should be confirmed with another method such as LC-MS/MS. Hemoglobin A1c Reviewed date:08/25/2024 02:19:59 PM Interpretation: Performing Lab:[facility], [address] [facility] [facility], [place] [phone] Notes/Report: Hemoglobin A1c % 9.2 <6.0 % Hemoglobin A1C Reference Range Adults: 4.8 - 6.0 % Non diabetic: < 6.0 % Goal: < 7.0 % Additional Action Suggested: > 8.0 % Note: Hemoglobin A1c results are invalid for patients with abnormal amounts of HbF. Blood transfusions may impact the HbA1c concentration in the patient sample. Estimated Average Glucose 217 eAG = Estimated average glucose which is %A1C expressed as average glucose, using the formula of the P5U-Nuwrwrm Average Glucose study (ADAG), Diabetes Care, Vol.31,#8, 2007 REASON FOR VISIT yearly fasting labs Encounters Encounter Location Date Provider Diagnosis Nikita Tran MD [address] [place] [phone] 08/24/2024 Nikita Tran Blood tests for rout ine general physical examination Z00.00 ; Type 2 diabetes mellitus without complication, without long-term current use of insulin E11.9 ; Essential hypertension I10 ; Pure hypercholesterolemia E78.00 and Vitamin D deficiency E55.9 Assessments Encounter Date Diagnosis (ICD Code) Assessment Notes Treatment Notes Treatment Clinical Notes Section Notes 08/24/2024 Blood tests for rout ine general physical examination (ICD-10 - Z00.00) 08/24/2024 Type 2 diabetes bettye itus without complication, without long-term current use of insulin (ICD-10 - E11.9) 08/24/2024 Essential hypertensi on (ICD-10 - I10) 08/24/2024 Pure hypercholesterolemia (ICD-10 - E78.00) 08/24/2024 Vitamin D deficiency (ICD-10 - E55.9) Plan Of Treatment Next Appt Details Provider Name:Nikita peralta, 02/23/2026 08:00:00 AM, [address] [place] [address], [address], [phone], Provider Name:Nikita peralta, 03/03/2026 01:30:00 PM, [address] [place] [address], [address], [phone], Provider Name:Nikita peralta, 08/29/2026 07:30:00 AM, [address], [address], [place], [place], [phone], Provider Name:Nikita Sosa ier, 09/05/2026 01:00:00 PM, [address], [address], [place], [phone], Progress Notes * Natanael GUERREROaDOB:[birth year] (79 yo F)Acc No.[id number]:08/24/2024 Progress Note Patient: Nita Cisneros Provider: Gilberto Tran MD :1945 A ge:79 Y S ex:Female Date:08/24/2024 Address:[address] [place], [place] [phone] Subjective: * Chief Complaints: * Y early fasting labs * Medical History: * Surgical History: * Hospitalization/Major Diagno stic Procedure: * Medications: Objective: Assessment: * Assessment: 1. B lood tests for routine general physical examination - Z00.00 (Primary) 2 . T ype 2 diabetes mellitus without complication, without long-term current use of insulin - E11.9 3 . Essential hypertension - I10 4 . P ure hypercholesterolemia - E78.00 5 . V itamin D deficiency - E55.9 Plan: * Treatment: 2. T ype 2 diabetes mellitus without complication, without long-term current use of insulin L AB: Microalbumin, Random L AB: UA ClnCatch+Micro w/rflx Cult L AB: Complete Blood Count Auto Diff L AB: Comprehensive [place]. Panel Fast L AB: IRON PROFILE L AB: Lipid Panel L AB: Vitamin D 25-OH Total L AB: Hemoglobin A1c 3. E ssential hypertension L AB: Microalbumin, Random L AB: UA ClnCatch+Micro w/rflx Cult L AB: Complete Blood Count Auto Diff L AB: Comprehensive [place]. Panel Fast L AB: IRON PROFILE L AB: Lipid Panel L AB: Vitamin D 25-OH Total L AB: Hemoglobin A1c 4. P ure hypercholesterolemia L AB: Microalbumin, Random L AB: UA ClnCatch+Micro w/rflx Cult L AB: Complete Blood Count Auto Diff L AB: Comprehensive [place]. Panel Fast L AB: IRON PROFILE L AB: Lipid Panel L AB: Vitamin D 25-OH Total L AB: Hemoglobin A1c 5. V itamin D deficiency L AB: Microalbumin, Random L AB: UA ClnCatch+Micro w/rflx Cult L AB: Complete Blood Count Auto Diff L AB: Comprehensive [place]. Panel Fast L AB: IRON PROFILE L AB: Lipid Panel L AB: Vitamin D 25-OH Total L AB: Hemoglobin A1c * Procedure Codes: 3 6415 VENIPUNCT, ROUTINE* * * Sign off status: Completed true * Provider: Gilberto Tran MD Date: Generated for Alcira tomlinson/Aayush/Lana on: 04:38 PM EDT
--- OUTSIDE RECORDS SUMMARY | 2024-08-31 09:00 | XMS_ITS ---
Author Organization Nikita Tran MD Address [address] [place], [place] [id number] Care Team Providers Care Developmental Mathematics Instructor Name Role Phone Nikita Tran Primary Care Provider [phone] Allergies Allergen (clinical drug ingredient) Drug/Non Drug Allergy documented on EMR Reaction Allergy Type Onset Date Status Latex Gloves redness above lip and on top of ears Drug Allergy Active Results Component Value Reference Range Notes Glucose, finger stick Reviewed date:08/31/2024 12:50:28 PM Interpretation: Performing Lab: Notes/Report: Value 126 REASON FOR VISIT annual visit Medications Medication SIG (Take, Route, Frequency, Duration) Notes Start Date End Date Status Atorvastatin Calcium 40 mg take 1 tablet daily Orally Once a day for 90 days Active Vitamin D 50 MCG (1999) 1 tablet Orally Once a day for 30 day(s) 03/07/2020 Active OneTouch Ultra - USE TO TEST BLOOD HAGAN GAR THREE TIMES A DAY 2 to 3 times per day for 90 days Active Triamcinolone Acetonide 0.025 % 1 application to affected area Externally once a day or as needed Not-Taking glipiZIDE 10 MG take 1 tablet by twice a day Orally twice a day for 90 days Active Metoprolol Succinate ER 100 mg take 1 tablet daily Orally Once a day for 90 days Active metFORMIN HCl ER 500 mg 2 tablet Orally twice a day for 90 days Active Valsartan-hydroCHLOROthia zide 160-12.5 MG 1 tablet Orally Once a day for 90 days 02/27/2024 Active Social History Tobacco Use: Social History Observation Description Date Details (start date - stop date) Former Smoker NA - NA Tobacco Use/Smoking Question Answer Notes Patient is a former smoker How long has it been since y ou last smoked? > 10 years Additional Findings: Tobacco Non-User Fo rmer smoker, currently using no form of tobacco Alcohol Screen Question Answer Notes Did you have a drink containing alcohol in the p ast year? No Points 0 Interpretation Negative Vital Signs Blood pressure systolic 172 mm Hg 08/31/20 24 Blood pressure diastolic 69 mm Hg 024 Height 59.50 in 08/31/2024 Weight 131 lbs 08/31/2024 BMI 26.01 kg/m2 08/31/2024 weight is up 6 pounds since 06-04-24 Encounters Encounter Location Date Provider Diagnosis Nikita Tran MD 10 [facility] [address] [place] [phone] 08/31/2024 Nikita Tran Type 2 diabetes bettye itus without complication, without long-term current use of insulin E11.9 ; Annual physical exam Z00.00 ; Essential hypertension I10 ; Pure hypercholesterolemia E78.00 ; Vitamin D deficiency E55.9 and Depression screening Z13.31 Assessments Encounter Date Diagnosis (ICD Code) Assessment Notes Treatment Notes Treatment Clinical Notes Section Notes 08/31/2024 Type 2 diabetes bettye itus without complication, without long-term current use of insulin (ICD-10 - E11.9) will watch for hypoglycemia . may need to go on insulin. running a1c a little high is better than having low sugars at age 79 08/31/2024 Annual physical exam (ICD-10 - Z00.00) labs reviewed and discussed with patient 08/31/2024 Essential hypertensi on (ICD-10 - I10) running good at home. gets anxious here, will continue to monitor and will contonue current regiment 08/31/2024 Pure hypercholesterolemia (ICD-10 - E78.00) stable, will continue current regiment 08/31/2024 Vitamin D deficiency (ICD-10 - E55.9) stbale, at goal, will contiue current regiment 08/31/2024 Depression screening (ICD-10 - Z13.31) negative screen Plan Of Treatment Treatment Notes Assessment Notes Type 2 diabetes mellitus wit hout complication, without long-term current use of insulin will watch for hypoglycemia. may need to go on insulin. running a1c a little high is better than having low sugars at age 79 Annual physical exam labs reviewed and d iscussed with patient Essential hypertension running good at h ome. gets anxious here, will continue to monitor and will contonue current regiment Pure hypercholesterolemia stable, will c ontinue current regiment Vitamin D deficiency stbale, at goal, wi ll contiue current regiment Depression screening negative screen Next Appt Details Follow Up: 6 Months, Reason: Provider Name:Nikita peralta, 02/23/2026 08:00:00 AM, [address] [place] [address], [address] [place] [address], [phone], Provider Name:Nikita peralta, 03/03/2026 01:30:00 PM, [address] [place] [address], [address], [phone], Provider Name:Nikita peralta, 08/29/2026 07:30:00 AM, [address] [place] [address], [address] [place] [address], [phone], Provider Name:Nikita peralta, 09/05/2026 01:00:00 PM, [address] [place] [address], [address] [place] [address], [phone], Progress Notes * Natanael GUERREROStephanieB:[birth year] (79 yo F)Acc No.[id number]:08/31/2024 Progress Notes Patient: Nita Cisneros Provider: Gilberto Tran MD :1945 A ge:79 Y S ex:Female Date:08/31/2024 Address:[address] [place], [place] [phone] Subjective: * Chief Complaints: * A nnual visit * HPI: D epression Screening: PHQ-9 L ittle interest or pleasure in doing things N ot at all, F eeling down, depressed, or hopeless N ot at all, T rouble falling or staying asleep, or sleeping too much N ot at all, F eeling tired or having little energy N ot at all, P oor appetite or overeating N ot at all, F eeling bad about yourself or that you are a failure, or have let yourself or your family down N ot at all, T rouble concentrating on things, such as reading the newspaper or watching television N ot at all, M oving or speaking so slowly that other people could have noticed; or the opposite, being so fidgety or restless that you have been moving around a lot more than usual N ot at all, T houghts that you would be better off or of hurting yourself in some way N ot at all, T otal Score 0 . I nterpretation and Intervention D epression Screening Findings N egative, F ollow-Up for Depression : review of PHQ-9 found negative result, no follow-up needed. C ommunication Needs: Communication Needs D oes the patient have a hearing impairment N o, D oes the patient have a vision impairment? Y es, I f yes, what is the vision impairment? G lasses, D oes the patient have a cognition impairment? N o. F all Risk: History H ave you had any falls with injury in the past year? N o, H ave you had two or more falls in the past year? N o. S PURNIMA Questions: SDOH Questions I n the past year have you been worried about losing housing? N o, I n the past year have you or any family members you live with been unable to get any of the following when it was really needed? Check all that apply: N one. S ymptom(s): patient is a 79 yo female here for annual visit with review of recent labs and follow up of chronoc issues, doing better. antibiotics fixed her. * ROS: G eneral/Constitutional: Patient denies f atigue , headache. C hange in appetite?denies. C hills d enies. F ever d enies. O phthalmologic: Blurred vision d enies. D ischarge d enies. P ain d enies. E NT: Patient denies d ecreased sense of smell , any loss of taste , sore throat. D ecreased hearing d enies. S ore throat d enies. S wollen glands d enies. E ndocrine: Cold intolerance d enies. E xcessive thirst d enies. H eat intolerance d enies. W eight loss d enies. R espiratory: Cough d enies. S hortness of breath at rest d enies. S hortness of breath with exertion d enies. W heezing d enies. C ardiovascular: Chest pain at rest d enies. C hest pain with exertion?denies. I rregular heartbeat d enies. S hortness of breath d enies. ? G astrointestinal: Abdominal pain d enies. C hange in bowel habits d enies. D iarrhea d enies. N ausea d enies. R ectal bleeding d enies. V omiting d enies . G enitourinary: Blood in urine d enies. D ifficulty urinating d enies. F requent urination d enies. U rinary incontinence D enies. M usculoskeletal: Patient denies m uscle aches. P ainful joints d enies. W eakness d enies. P eripheral Vascular: Patient denies r ed and blue toes. S kin: Dry skin d enies. I tching d enies. D enies?Mole(s), changes in moles, new moles or any lesions of concern. D enies P hotosensitivity. R kye d enies. N eurologic: Dizziness d enies. F ainting d enies. H eadache?denies. * Medical History: * Surgical History: * Hospitalization/Major Diagno stic Procedure: * Family History: F ather: 72 yrs, diagnosed with COPD. M other: 91 yrs. 1 brother(s) , 4 sister(s) . 2 son(s) , 1 daughter(s) . . 1 sister had double mastectomy( 2 years ago). * Social History: T obacco Use: T obacco Use/Smoking P atient is a f ormer smoker, H ow long has it been since you last smoked? > 10 years, A dditional Findings: Tobacco Non-User F ormer smoker, currently using no form of tobacco. D rugs/Alcohol: A lcohol Screen D id you have a drink containing alcohol in the past year? N o, P oints 0 , I nterpretation N egative. M iscellaneous: C affeine: yes, 1-2 cups per day. Children: yes. Exercise: yes, 2-3 times per week walks. Housing: owning. Living with: spouse. Marital status: . Occupation: works full-time. Pets: dogx1. no Travel outside of the [place]. * Medications: T akingValsartan-hydroCHLOROthiazide 160-12.5 MG Tablet [...] Orally Once a dayVitamin D 50 MCG (2000 UT) Tablet 1 [...] area Externally once a day or as neededDiscontinuedAmoxicillin-Pot Clavulanate 875-125 MG Tablet 1 tablet Orally every 12 hrsMedication List reviewed and reconciled with the patientDiscontinued Amoxicillin-Pot Clavulanate 875-125 MG Tablet 1 tablet Orally every 12 hrsMedication List reviewed and reconciled with the patient * Allergies: L atex Gloves: redness above lip and on top of ears - Allergyyes[Allergies Verified] Objective: * Vitals: H t: 59.50, Wt: 131, BMI:26.01, BP:172/69, Repeat BP:160/65, Wt-k.42 weight is up 6 pounds since 06-04-24. * P ast Orders: L ab:Complete Blood Count Auto Diff (Order Date - 08/24/2024) (Collection Date - 08/24/2024) Value Reference Range White Blood Count 7.5 4.8-10.8 - X10*3/uL Red Blood Count 4.00 L 4.20-5.50 - X10*6/uL Hemoglobin 12.6 12.0-16.0 - g/dl Hematocrit 38.6 37.0-47.0 - % Mean Corpuscular Volume 96.5 80.0-98.0 - fL Mean Corpuscular Hemoglobin 31.5 27.0-33.0 - pg Mean Corpuscular HGB Conc 32.6 31.0-35.0 - g/ dl Red Cell Distribution Width 12.6 11.0-16.0 - % Platelet Count 220 160-400 - X10*3/uL Mean Platelet Volume 11.5 9.4-12.3 - fL Neutrophils Percent Auto 45.4 45-73 - % Imm Gran Pct Auto 0.1 0.0-0.4 - % Lymphocytes Percent Auto 41.4 H 20-40 - % Monocytes Percent Auto 8.4 2-11 - % Eosinophils Percent Auto 3.9 0-4 - % Basophils Percent Auto 0.8 0-2 - % NRBC Pct Auto 0.0 0.0-0.2 - /100WBC Neutrophils Absolute Auto 3.4 2.0-8.3 - x10* 3/uL Imm Gran Abs Auto 0.01 0.00-0.03 - X10*3/uL Lymphocytes Absolute Auto 3.1 1.2-4.9 - X10* 3/uL Monocytes Absolute Auto 0.6 0.1-1.2 - X10*3/ uL Eosinophils Absolute Auto 0.3 0.0-0.4 - X10* 3/uL Basophils Absolute Auto 0.1 0.0-0.2 - X10*3/ uL NRBC Abs Auto 0.000 0.0-0.012 - X10*3/uL L ab:Comprehensive [place]. Panel Fast (Order Date - 08/24/2024) (Collection Date - 08/24/2024) Value Reference Range Sodium 139 135-145 - mmol/L Bilirubin Total 0.4 0.0-1.0 - mg/dL Aspartate Amino Transferase 23 5-31 - U/L Alanine Aminotransferase 18 0-31 - U/L Total Protein 6.6 6.5-8.0 - g/dL Albumin Level 3.9 3.5-5.0 - g/dL Alkaline Phosphatase 87 39-117 - U/L Potassium 5.0 3.3-5.1 - mmol/L Chloride 105 96-108 - mmol/L Carbon Dioxide 29 22-29 - mmol/L Anion Gap 10 L 12-20 - Blood Urea Nitrogen 17 H 9-16 - mg/dL Creatinine 0.85 0.5-1.4 - mg/dL Estimated Glomerular Filt Rate > 60 - Glucose Fasting 153 H 60-99 - mg/dL Calcium 9.7 8.4-10.2 - mg/dL L ab:IRON PROFILE (Order Date - 08/24/2024) (Collection Date - 08/24/2024) Value Reference Range Iron 141 30-160 - mcg/dL Total Iron Binding Capacity 267 228-428 - mc g/dL Percent Iron Saturation 53 H 15-50 - % Unsaturated Iron Binding 126 - ug/dL L ab:Lipid Panel (Order Date 08/24/2024) (Collection Date - 08/24/2024) Value Reference Range Triglycerides 93 <150 - mg/dL Cholesterol 141 <200 - mg/dL LDL Cholesterol Calculated 71 <100 - mg/dL HDL Cholesterol 52 >40 - mg/dL L ab:Vitamin D 25-OH Total (Order Date - 08/24/2024) (Collection Date - 08/24/2024) Value Reference Range Vitamin D 25-OH Total 69.5 >30 - ng/mL L ab:Hemoglobin A1c (Order Date - 08/24/2024) (Collection Date - 08/24/2024) Value Reference Range Hemoglobin A1c % 9.2 H <6.0 - % Estimated Average Glucose 217 - mg/dL * Examination: G eneral Examination: GENERAL APPEARANCE: w ell developed, well nourished, in no acute distress. HEAD: n ormocephalic, atraumatic. EYES: p upils equal, round, reactive to light and accommodation, sclera non-icteric. EARS: n ormal. ORAL CAVITY: m ucosa moist. THROAT: c lear. NECK/THYROID: n karen supple, full range of motion, no cervical lymphadenopathy, no bruits. SKIN: w arm and dry, no suspicious lesions. HEART: r egular rate and rhythm, S1, S2 normal, no murmurs.? LUNGS: c lear to auscultation bilaterally. BREASTS: N o mass, no lump. ABDOMEN: s oft, nontender, nondistended, bowel sounds present, normal, no organomegaly , no masses palpable. RECTAL EXAM: d eclined. FEMALE GENITOURINARY: d eclined. EXTREMITIES: n o clubbing, cyanosis, or edema. NEUROLOGIC: n onfocal, motor strength normal upper and lower extremities, sensory exam intact. Assessment: * Assessment: 1. A nnual physical exam - Z00.00 (Primary) 2 . T ype 2 diabetes mellitus without complication, without long-term current use of insulin - E11.9 3 . E ssential hypertension - I10 4. P ure hypercholesterolemia - E78.00 5 . V itamin D deficiency - E55.9 6 .?Depression screening - Z13.31 Plan: * Treatment: 2. T ype 2 diabetes mellitus without complication, without long-term current use of insulin L AB: Glucose, finger stick Value Reference Range V alue 126 Notes: will watch for hypoglycemia. may need to go on insulin. running a1c a little high is better than having low sugars at age 79??3.?Essential hypertension? Notes: running good at home. gets anxious here, will continue to monitor and will contonue current regiment??4.?Pure hypercholesterolemia? Notes: stable, will continue current regiment??5.?Vitamin D deficiency? Notes: stbale, at goal, will contiue current regiment??6.?Depression screening? Notes: negative screen?? * Procedure Codes: 8 2947 ASSAY, GLUCOSE, BLOOD QUANT, Modifiers: QW * Preventive Medicine: Counseling: C are goal follow-up plan: C ravineling for abnormal BMI provided?Yes, Albert claytone Normal BMI Follow-up Gilberto vaz encouragement to exercise. Diabetes Care Plan: P atient Lifestyle Goals N eeds to maintain diet control.?Treatment Goals A 1C< 7. B arriers N eeds better diet control. S elf-Managment Plan I ncrease light exercise to 3 times a week for 30 minutes. * Follow Up: 6 Months * * Sign off status: Completed true * Provider: Gilberto Tran MD Date: Generated for Alcira tomlinson/Aayush/Demetriaitting on: 04:39 PM EDT History and Physical Notes * HPI (History of Present Illness) Category Sub-Category Detail Notes Category Not es Symptom(s) patient is a 79 yo female here for annual visit with review of recent labs and follow up of chronoc issues, doing better. antibiotics fixed her. Depression Screening PHQ-9 Little inte rest or pleasure in doing things: Not at all Feeling down, depressed, or hopeless: No t at all Trouble falling or staying asleep, or sl eeping too much: Not at all Feeling tired or having little energy: N ot at all Poor appetite or overeating: Not at all Feeling bad about yourself o r that you are a failure, or have let yourself or your family down: Not at all Trouble concentrating on thi ngs, such as reading the newspaper or watching television: Not at all Moving or speaking so slowly that other people could have noticed; or the opposite, being so fidgety or restless that you have been moving around a lot more than usual: Not at all Thoughts that you would be b lay off or of hurting yourself in some way: Not at all Total Score: 0 Interpretation and Intervention Depression Marlon stubbs Findings: Negative Follow-Up for Depression: : review of PH Q-9 found negative result, no follow-up needed SDOH Questions SDOH Questions In the past year have you been worried about losing housing?: No In the past year have you or any family members you live with been unable to get any of the following when it was really needed? Check all that apply:: None Fall Risk History Have you had any falls with injury i n the past year?: No Have you had two or more falls in the year?: No Communication Needs Communication Needs Does the patient have a hearing impairment: No Does the patient have a vision impairmen t?: Yes If yes, what is the vision impairment?: Glasses Does the patient have a cognition impair ment?: No Examination Category Sub-Category Detail Notes Category Not es General Examination GENERAL APPEARANCE: well dev eloped, well nourished, in no acute distress HEAD: normocephalic, atrau matic EYES: pupils equal, round, reactive to light and accommodation, sclera non-icteric EARS: normal THROAT: clear NECK/THYROID: neck supple, full ra nge of motion, no cervical lymphadenopathy, no bruits HEART: regular rate and rhy thm, S1, S2 normal, no murmurs LUNGS: clear to auscultatio n bilaterally ABDOMEN: soft, nontender, non distended, bowel sounds present, normal, no organomegaly , no masses palpable NEUROLOGIC: nonfocal, motor stre ngth normal upper and lower extremities, sensory exam intact SKIN: warm and dry, no yayo picious lesions EXTREMITIES: no clubbing, cyanosi s, or edema BREASTS: No mass, no lump RECTAL EXAM: declined FEMALE GENITOURINARY: declined ORAL CAVITY: mucosa moist
--- OUTSIDE RECORDS SUMMARY | 2025-02-25 03:30 | XMS_ITS ---
Author Organization Nikita Tran MD Address [address] [place], [place] [id number] Care Team Providers Care Nipple Machine Operator Name Role Phone Nikita Tran Primary Care Provider [phone] Results Component Value Reference Range Notes Liver Panel Reviewed date:02/28/2025 04:27:49 PM Interpretation: Performing Lab:[address] [phone] Notes/Report: Bilirubin Total 0.5 0.0-1.0 mg/dL Bilirubin Direct 0.2 0.0-0.5 mg/dL Aspartate Amino Transferase 40 5-31 U/L Alanine Aminotransferase 23 0-31 U/L Total Protein 7.1 6.5-8.0 g/dL Albumin Level 4.0 3.5-5.0 g/dL Alkaline Phosphatase 101 39-117 U/L Glucose Fasting Reviewed date:02/28/2025 04:27:41 PM Interpretation: Performing Lab:[address] [phone] Notes/Report: Glucose Fasting 136 60-99 mg/dL A fasting glucose of 126 mg/dl or greater on more than one occasion is considered diagnostic of diabetes. Lipid Panel with Reflex Reviewed date:02/28/2025 04:27:32 PM Interpretation: Performing Lab:[facility], [address] [place] [phone] Notes/Report: Triglycerides 151 <150 mg/dL Desirable Triglyceride: less than 150 mg/dL Borderline High Triglyceride 150-199 mg/dL High Triglyceride: 200-499 mg/dL Very High Triglyceride: greater than or equal to 5OO mg/dL Cholesterol 169 <200 mg/dL Desirable Cholesterol: less than 200 mg/dL Borderline High Cholesterol: 200-239 mg/dL High Cholesterol: greater than 239 mg/dL LDL Cholesterol Calculated 87 <100 mg/dL Desirable LDL: less than 100 mg/dL Near Optimal/Above Optimal LDL: 110-129 mg/dL Borderline High LDL: 130-159 mg/dL High LDL: 160-189 mg/dL Very High LDL: greater than or equal to 190 mg/dL HDL Cholesterol 52 >40 mg/dL Desirable HDL: greater than 40 mg/dL Note: This HDL assay may give artificially low results in patients with liver disease. Hemoglobin A1c Reviewed date:02/25/2025 07:20:02 PM Interpretation: Performing Lab:[facility], [address] [place] [phone] Notes/Report: Hemoglobin A1c % 9.9 <6.0 % Hemoglobin A1C Reference Range Adults: 4.8 - 6.0 % Non diabetic: < 6.0 % Goal: < 7.0 % Additional Action Suggested: > 8.0 % Note: Hemoglobin A1c results are invalid for patients with abnormal amounts of HbF. Blood transfusions may impact the HbA1c concentration in the patient sample. Estimated Average Glucose 237 eAG = Estimated average glucose which is %A1C expressed as average glucose, using the formula of the O1M-Oqycpfb Average Glucose study (ADAG), Diabetes Care, Vol.31,#8, Jun. 2007 REASON FOR VISIT fasting lipids Encounters Encounter Location Date Provider Diagnosis Nikita Tran MD [address] [place] [address] Drive [address] [place], [place] [phone] 02/25/2025 Nikita Tran Pure hypercholestero lemia E78.00 and Type 2 diabetes mellitus without complication, without long-term current use of insulin E11.9 Assessments Encounter Date Diagnosis (ICD Code) Assessment Notes Treatment Notes Treatment Clinical Notes Section Notes 02/25/2025 Pure hypercholesterolemia (ICD-10 - E78.00) 02/25/2025 Type 2 diabetes bettye itus without complication, without long-term current use of insulin (ICD-10 - E11.9) Plan Of Treatment Next Appt Details Provider Name:Nikita Sosa ier, 02/23/2026 08:00:00 AM, [address], [address], [place], [id number], Provider Name:Nikita hardenr, 03/03/2026 01:30:00 PM, [address], [address], [place], [phone], Provider Name:Nikita Sosa ier, 08/29/2026 07:30:00 AM, [address], [address], [place], [place], [phone], Provider Name:Nikita hardenr, 09/05/2026 01:00:00 PM, [address], Suite [facility], [place], [phone], Progress Notes * Natanael GUERREROStephanieB:[birth year] (80 yo F)Acc No.[id number]:02/25/2025 Progress Note Patient: Nita BOSS Provider: Gilberto Tran MD :1945 A ge:79 Y S ex:Female Date:02/25/2025 Address:[address] [place] [address] Subjective: * Chief Complaints: * 1 . Fasting lipids. * Medical History: Objective: * Vitals: Assessment: * Assessment: 1. P ure hypercholesterolemia - E78.00 (Primary) 2 . T ype 2 diabetes mellitus without complication, without long-term current use of insulin - E11.9 Plan: * Treatment: 2. T ype 2 diabetes mellitus without complication, without long-term current use of insulin L AB: Liver Panel (Collection Date & Time - 02/25/2025 07:30 AM) L AB: Glucose Fasting (Collection Date & Time - 02/25/2025 07:30 AM) L AB: Lipid Panel with Reflex (Collection Date & Time - 02/25/2025 07:30 AM) L AB: Hemoglobin A1c (Collection Date & Time - 02/25/2025 07:30 AM) * Procedure Codes: 3 6415 VENIPUNCT, ROUTINE* * * The named appointment provid er may or may not be the originator of this progress note, and it is not deemed complete until electronically signed by the appointment provider. Sign off status: Pending * Provider: Gilberto Tran MD Date: 0 02/25/2025 Generated for Alcira tomlinson/Aayush/Demetriaitting on: 1 04:38 PM EDT
--- OUTSIDE RECORDS SUMMARY | 2025-03-10 09:45 | XMS_ITS ---
Author Organization Nikita Tran MD Address [address] [place], [place] [phone] Care Team Providers Care Shot Lighter Name Role Phone Nikita Tran Primary Care Provider [phone] Allergies Allergen (clinical drug ingredient) Drug/Non Drug [...] Location Date Provider Diagnosis Nikita Tran MD [address] [place] [phone] 03/10/2025 Nikita Tran Type 2 diabetes bettye [...] Provider Name:Nikita peralta, 02/23/2026 08:00:00 AM, [address] [place] [address], [address], [phone], Provider Name:Nikita peralta, 03/03/2026 01:30:00 PM, [address] [place] [address], [address], [phone], Provider Name:Nikita peralta, 08/29/2026 07:30:00 AM, [address] [place] [address], [phone], Provider Name:Nikita Sosa ier, 09/05/2026 01:00:00 PM, [address], [address], [place], [place], [phone], Progress Notes * Sherice GUERREROB:[birth year] (79 yo F)Acc No.[id number]:03/10/2025 Progress Notes Patient: Nita BOSS Provider: Gilberto Tran MD :1945 A ge:79 Y S ex:Female Date:03/10/2025 Address:[address] [place], [place] [phone] Subjective: * Chief Complaints: * 6 month [...] 0 03/10/2025 Generated for Alcira tomlinson/Aayush/Demetriaitting on: 04:39 PM [...]
--- OUTSIDE RECORDS SUMMARY | 2025-04-05 10:33 | XMS_ITS ---
Author Organization Nikita Tran MD Address [address] [place] [phone] Care Team Providers Care Attending Radiologist Name Role Phone Nikita Tran Primary Care Provider REASON FOR VISIT RF Meto and Metformin Medications Medication SIG (Take, Route, Frequency, Duration) Notes Start Date End Date Status metFORMIN HCl ER 500 mg 2 tablet Orally twice a day for 90 days Active Metoprolol Succinate ER 100 mg take 1 tablet daily Orally Once a day for 90 days Active glipiZIDE 10 MG take 1 tablet by tamanna th twice a day Orally twice a day for 90 days Active Encounters Encounter Location Date Provider Diagnosis Nikita Tran MD [address] [facility] [address] [place] [phone] 04/05/2025 Nikita Tran Type 2 diabetes mellitus without complication, without long-term current use of insulin E11.9 and Essential hypertension I10 Assessments Encounter Date Diagnosis (ICD Code) Assessment Notes Treatment Notes Treatment Clinical Notes Section Notes 04/05/2025 Type 2 diabetes mellitus without complication, without long-term current use of insulin (ICD-10 - E11.9) 04/05/2025 Essential hypertension (ICD-10 - I10) Plan Of Treatment Medication Medication Name Sig Start Date Stop Date Notes metFORMIN HCl ER 500 mg 2 tablet Orally twice a day for 90 days Metoprolol Succinate ER 100 mg take 1 ta blet daily Orally Once a day for 90 days glipiZIDE 10 MG take 1 tablet by tamanna twice a day Orally twice a day for 90 days Next Appt Details Provider Name:Nikita Sosa kathryn, 02/23/2026 08:00:00 AM, [address] [place] [address], [address] [facility], [place], [place], [phone], Provider Name:Nikita Sosa dereckr, 03/03/2026 01:30:00 PM, [address] [place] [address], [place] [address], [place], [place], [phone], Provider Name:Nikita Sosa dereckr, 08/29/2026 07:30:00 AM, [address] [place] [address], [place] [address], [place], [place], [phone], Provider Name:Nikita Sosa dereckr, 09/05/2026 01:00:00 PM, [address] [place] [address], [place] [address], [place], [place], [phone], Progress Notes * Sherice GUERREROB:[birth year] (79 yo F)Acc No.[id number]:04/05/2025 Patient: Blaise SETH Nita :1945 A ge:79 Y S ex:Female Address:[address] [place] [address], [address] * Refills Refill metFORMIN HCl ER Tablet Extended Release 24 Hour, 500 mg, Orally, 360 Tablet, 2 tablet, twice a day, 90 days, Refills=3 Refill glipiZIDE Tablet, 10 MG, Orally, 180, take 1 tablet by mouth twice a day, twice a day, 90 days, Refills=3 Refill Metoprolol Succinate ER Tablet Extended Release 24 Hour, 100 mg, Orally, 90, take 1 tablet daily, Once a day, 90 days, Refills=3 * true * Date: Generated for Alcira tomlinson/Aayush/Lana on: 04:39 PM EDT
--- OUTSIDE RECORDS SUMMARY | 2025-05-20 03:16 | XMS_ITS ---
Author Organization Nikita Tran MD Address [address] [facility] [address] [place] [phone] Care Team Providers Care Principal Associate Name Role Nikita Pereira Primary Care Provider [phone] REASON FOR VISIT Labs needed for Quality Encounters Encounter Location Date Provider Diagnosis Nikita Tran MD [address] [facility] [address] [place] [phone] 05/20/2025 Nikita Tran Plan Of Treatment Next Appt Details Provider Name:Nikita peralta, 02/23/2026 08:00:00 AM, [address] [place] [address], [address], [phone], Provider Name:Nikita peralta, 03/03/2026 01:30:00 PM, [address] [place] [address], [address], [phone], Provider Name:iNkita peralta, 08/29/2026 07:30:00 AM, [address] [place] [address], [address], [phone], Provider Name:Nikita peralta, 09/05/2026 01:00:00 PM, [address] [place] [address], [address], [phone], Progress Notes * Natanael GUERREROaDOB:[birth year] (79 yo F)Acc No.[id number]:05/20/2025 Patient: Nita BOSS :1945 A ge:79 Y S ex:Female Address:[address] [place] [address] * true * Date: Generated for Alcira tomlinson/Aayush/Solitariosmitting on: 04:38 PM EDT
--- OUTSIDE RECORDS SUMMARY | 2025-08-26 03:45 | XMS_ITS ---
Author Organization Nikita Tran MD Address [address] [place], [place] [phone] Care Team Providers Care Granite Setter Name Role Phone Nikita Tran Primary Care Provider [phone] Results Component Value Reference Range Notes Complete Blood Count Auto Di ff Reviewed date:08/26/2025 12:48:08 PM Interpretation: Performing Lab:[facility], [address] [place] [phone] Notes/Report: White Blood Count 8.5 4.8-10.8 X10*3/uL [...] NRBC Abs Auto 0.000 0.0-0.012 X10*3/uL Comprehensive [place]. Panel Fa st Reviewed date:08/26/2025 03:46:11 PM Interpretation: Performing Lab:[address] [phone] Notes/Report: Sodium 141 135-145 mmol/L Potassium 4.6 [...] Panel Reviewed date:08/26/2025 03:44:48 PM Interpretation: Performing Lab:[address] [phone] Notes/Report: Triglycerides 113 <150 mg/dL Desirable Triglyceride: [...] Total Reviewed date:08/26/2025 03:45:06 PM Interpretation: Performing Lab:[address] [phone] Notes/Report: Vitamin D 25-OH Total 52.7 >30 [...] A1c Reviewed date:08/26/2025 12:42:09 PM Interpretation: Performing Lab:[address] [phone] Notes/Report: Hemoglobin A1c % 8.6 <6.0 % [...] average glucose, using the formula of the U7N-Wutvsel Average Glucose study (ADAG), Diabetes Care, Vol.31,#8, 2007 REASON FOR VISIT yearly fasting labs Encounters Encounter Location Date Provider Diagnosis Nikita Tran MD [address] [place] [address] [place] [phone] 08/26/2025 Nikita Tran Blood tests for rout [...] Details Provider Name:Nikita peralta, 02/23/2026 08:00:00 AM, [address] [place] [address], [place] [address], [place], [place], [phone], Provider Name:Nikita peralta, 03/03/2026 01:30:00 PM, [address] [place] [address], [address], [phone], Provider Name:Nikita peralta, 08/29/2026 07:30:00 AM, [address], [address], [place], [place], [phone], Provider Name:Nikita Sosa dereckr, 09/05/2026 01:00:00 PM, [address], [address], [place], [place], [phone], Progress Notes * Natanael GUERREROaDOB:[birth year] (80 yo F)Acc No.[id number]:08/26/2025 Progress Note Patient: Nita BOSS Provider: Gilberto Tran MD :1945 A ge:80 Y S ex:Female Date:08/26/2025 Address:[address] [place], [place] [phone] Subjective: * Chief Complaints: * 1 . [...] - 08/26/2025 07:30 AM) L AB: Comprehensive [place]. Panel Fast (Collection Date & Time - [...] - 08/26/2025 07:30 AM) L AB: Comprehensive [place]. Panel Fast (Collection Date & Time - [...] - 08/26/2025 07:30 AM) L AB: Comprehensive [place]. Panel Fast (Collection Date & Time - [...] MD Date: Generated for Alcira tomlinson/Aayush/Demetriaitting on: 04:38 PM EDT
--- OUTSIDE RECORDS SUMMARY | 2025-09-02 09:00 | XMS_ITS ---
Author Organization Nikita Tran MD Address [address] [place], [place] [id number] Care Team Providers Care Spring Salvage Worker Name Role Phone Nikita Tran Primary Care Provider [phone] Allergies Allergen (clinical drug ingredient) Drug/Non Drug Allergy documented on EMR Reaction Allergy Type Onset Date Status Latex Gloves redness above lip and on top of ears Drug Allergy Active Results Component Value Reference Range Notes Microalbumin, Random (Not ye t reviewed by provider) Interpretation: Performing Lab:[facility], [address] [place] [phone] Notes/Report: Creatinine Urine 57.41 Microalbumin Urine 98.0 Microalbum/Creatinine Ratio Ur 170.7 <30 ug/mg cr Albumin/Creatinine Ratio Reference Ranges: Normal: < 30 ug/mg creatinine Microalbuminuria: 30 - 300 ug/mg creatinine Clinical Albuminuria: > 300 ug/mg creatinine UA ClnCatch+Micro w/rflx Cul t (Not yet reviewed by provider) Interpretation: Performing Lab:[facility], [address] [place] [phone] Notes/Report: Urine, Clean Catch Color Urine Yellow Appearance Urine Clear PH 5.5 5.0-9.0 Glucose Urine UA 500 Negative mg/dL Urine Blood Negative Negative Specific [place] - Urine 1.015 1.005-1.025 Urine Protein Trace [...] Location Date Provider Diagnosis Nikita Tran MD [address] [place] [address] [address] [place], [place] [phone] 09/02/2025 Nikita Tran Adult general medica l [...] hypercholesterolemia (ICD-10 - E78.00) Plan Of Treatment Pending Test Test Name Order Date Microalbumin, Random 09/02/2025 UA ClnCatch+Micro w/rflx Cult 09/02/2025 Next Appt Details Provider Name:Nikita peralta, 02/23/2026 08:00:00 AM, [address] [place] [address], [address], [phone], Provider Name:Nikita Ralph Sheila peralta, 03/03/2026 01:30:00 PM, [address] [place] [address], [address], [phone], Provider Name:Nikita hardenr, 08/29/2026 07:30:00 AM, [address] [place] [address], [address] [place] [address], [phone], Provider Name:Nikita Ralph Sheila hardenr, 09/05/2026 01:00:00 PM, [address] [place] [address], [address], [phone], Progress Notes * CRISTIANJaydenAYANNANatanael CARPIOStephanieB:[birth year] (80 yo F)Acc No.[id number]:09/02/2025 Progress Notes Patient: Nita BOSS Provider: Gilberto Tran MD :1945 A ge:80 Y S ex:Female Date:09/02/2025 Address:[address] [place], [place] [phone] Subjective: * Chief Complaints: * 1 . Annual visit. * HPI: D epression Screening: PHQ-9 L [...] d enies. H eadache?denies. * Medical History: M edical History Verified. * Family History: F ather: 72 yrs, [...] works full-time. Pets: dogx1. * Medications: T aking Vitamin D 50 MCG (1999 UT) Tablet 1 tablet Orally Once a day , Taking Valsartan-hydroCHLOROthiazide 160-12.5 MG Tablet TAKE 1 TABLET ONCE DAILY , Taking OneTouch Ultra - Strip USE TO TEST BLOOD SUGAR THREE TIMES A DAY 90 DAYS , Taking metFORMIN HCl ER 500 mg Tablet Extended Release 24 Hour 2 tablet Orally twice a day , Taking glipiZIDE 10 MG Tablet take 1 tablet by mouth twice a day Orally twice a day , Taking Metoprolol Succinate ER 100 mg Tablet Extended Release 24 Hour take 1 tablet daily Orally Once a day , Taking Atorvastatin Calcium 40 MG Tablet TAKE 1 TABLET ONCE DAILY , Not-Taking/PRN Triamcinolone Acetonide 0.025 % Cream 1 application to affected area Externally once a day or as needed , Medication List reviewed and reconciled with the patient * Allergies: L atex Gloves: redness above lip and on top of ears - Allergy. Objective: * Vitals: H t: 59.50, Wt: [...] Cholesterol 47 >40 - mg/dL L ab:Comprehensive [place]. Panel Fast (Order Date - 08/26/2025) (Collection [...] & Time - 09/02/2025 01:00 PM) * Preventive Medicine: Diabetes Care Plan: P atient Lifestyle Goals N eeds to maintain diet control.?Treatment Goals A 1C< 7. B arriers N eeds better diet control. E xpected Outcome m aintaining stable blood sugar levels within a target range. * * The named appointment provid er may or may not be the originator of this progress note, and it is not deemed complete until electronically signed by the appointment provider. Sign off status: Pending * Provider: Gilberto Tran MD Date: Generated for Alcira tomlinson/Aayush/eTransmitting on: 04:39 PM EDT History and Physical [...]
[2025-09-02 15:17] LABS: Appearance Urine Clear; Glucose Urine UA 500 mg/dL (Negative); PH 5.5 (5.0-9.0); Specific Gravity - Urine 1.015 (1.005-1.025); UMIC TRIGGER UACC YES
[2025-09-02 15:27] LABS: UACC Culture Trigger YES
[2025-09-02 15:53] LABS: Microalbum/Creatinine Ratio Ur 170.7 ug/mg cr (<30)
--- OUTSIDE RECORDS SUMMARY | 2025-09-02 16:38 | XMS_ITS | Patient Health Record ---
Author Organization Nikita Tran MD Address [address] [place], [place] [phone] Care Team Providers Care Environmental Health Safety Manager Name Role Phone Nikita Tran Primary Care Provider Allergies Allergen (clinical drug ingredient) Drug/Non Drug Allergy documented on EMR Reaction Allergy Type Onset Date Status Latex Gloves redness above lip and on top of ears Drug Allergy Active Results Component Value Reference Range Notes Liver Panel Reviewed date:02/28/2025 04:27:49 PM Interpretation: Performing Lab:[facility], [address] [place] [phone] Notes/Report: Bilirubin Total 0.5 0.0-1.0 mg/dL Bilirubin Direct 0.2 0.0-0.5 mg/dL Aspartate Amino Transferase 40 5-31 U/L Alanine Aminotransferase 23 0-31 U/L Total Protein 7.1 6.5-8.0 g/dL Albumin Level 4.0 3.5-5.0 g/dL Alkaline Phosphatase 101 39-117 U/L Glucose Fasting Reviewed date:02/28/2025 04:27:41 PM Interpretation: Performing Lab:[facility], [address] [place] [phone] Notes/Report: Glucose Fasting 136 60-99 mg/dL A fasting glucose of 126 mg/dl or greater on more than one occasion is considered diagnostic of diabetes. Lipid Panel with Reflex Reviewed date:02/28/2025 04:27:32 PM Interpretation: Performing Lab:[facility], [address] [place] [phone] Notes/Report: Triglycerides 151 <150 mg/dL Desirable Triglyceride: [...] A1c Reviewed date:02/25/2025 07:20:02 PM Interpretation: Performing Lab:[facility], [address] [place] [phone] Notes/Report: Hemoglobin A1c % 9.9 <6.0 % [...] average glucose, using the formula of the N6Q-Stlaftu Average Glucose study (ADAG), Diabetes Care, Vol.31,#8, Jun. 2007 Complete Blood Count Auto Di ff Reviewed date:08/26/2025 12:48:08 PM Interpretation: Performing Lab:[facility], [address] [place] [phone] Notes/Report: White Blood Count 8.5 4.8-10.8 X10*3/uL [...] NRBC Abs Auto 0.000 0.0-0.012 X10*3/uL Comprehensive [place]. Panel Fa st Reviewed date:08/26/2025 03:46:11 PM Interpretation: Performing Lab:[facility], [address] [place] [phone] Notes/Report: Sodium 141 135-145 mmol/L Potassium 4.6 [...] Panel Reviewed date:08/26/2025 03:44:48 PM Interpretation: Performing Lab:[facility], [address] [place] [phone] Notes/Report: Triglycerides 113 <150 mg/dL Desirable Triglyceride: [...] Total Reviewed date:08/26/2025 03:45:06 PM Interpretation: Performing Lab:[facility], [address] [place] [phone] Notes/Report: Vitamin D 25-OH Total 52.7 >30 [...] A1c Reviewed date:08/26/2025 12:42:09 PM Interpretation: Performing Lab:[facility], [address] [place] [phone] Notes/Report: Hemoglobin A1c % 8.6 <6.0 % [...] average glucose, using the formula of the J7D-Nluoftf Average Glucose study (ADAG), Diabetes Care, Vol.31,#8, 2007 Microalbumin, Random (Not ye t reviewed by provider) Interpretation: Performing Lab:[facility], [address] [place] [phone] Notes/Report: Creatinine Urine 57.41 Microalbumin Urine 98.0 Microalbum/Creatinine Ratio Ur 170.7 <30 ug/mg cr Albumin/Creatinine Ratio Reference Ranges: Normal: < 30 ug/mg creatinine Microalbuminuria: 30 - 300 ug/mg creatinine Clinical Albuminuria: > 300 ug/mg creatinine UA ClnCatch+Micro w/rflx Cul t (Not yet reviewed by provider) Interpretation: Performing Lab:[facility], [address] [place] [phone] Notes/Report: Urine, Clean Catch Color Urine Yellow Appearance Urine Clear PH 5.5 5.0-9.0 Glucose Urine UA 500 Negative mg/dL Urine Blood Negative Negative Specific [place] - Urine 1.015 1.005-1.025 Urine Protein Trace Neg-Trace mg/dL Urine Ketones Negative Negative mg/dL Nitrite Urine Negative Negative Leukocyte Esterase Urine Large (3+) Negative RBC Urine 0-2 0-2 /HPF WBC Urine 11-20 0-5 /HPF Squamous Epithelial Cell Urine 0-2 0-2 /HPF Bacteria Urine Trace None Seen Hyaline Casts Urine 3-5 0-2 /LPF Glucose, finger stick Reviewed date:03/10/2025 01:39:17 PM Interpretation: Performing Lab: Notes/Report: Value 128 Jamie Grady Reviewed date:02/25/2025 07:11:00 PM Interpretation: Performing Lab:[facility], [address] [place] [phone] Notes/Report: Jamie Grady See Note Specimen held untested for 24 hours; Call to request Chemistry testing. Jamie Grady Reviewed date:08/26/2025 12:42:26 PM Interpretation: Performing Lab:[facility], [address] [place] [phone] Notes/Report: Jamie Grady See Note Specimen held untested for 24 hours; Call to request Chemistry testing. Reason For Referral No Information Medications Medication SIG (Take, Route, Frequency, Duration) Notes Start Date End Date Status Valsartan-hydroCHLOROthia zide 160-12.5 MG TAKE 1 TABLET ONCE DAILY for 90 Active Vitamin D 50 MCG (1999 UT) 1 tablet Orally Once a day for 30 day(s) 03/07/2020 Active Triamcinolone Acetonide 0.025 % 1 application [...] A DAY 90 DAYS for 30 Active Immunizations Vaccine Route Administration Date Status Comme nts Influenza High Dose IM Intramuscular 10/10/2018 Administer ed pt was given the vaccine [facility]. PPSV23 (Pnemovax) IM Intramuscular 01/12/2019 Administered Fluarix Quadrivalent IM Intramuscular 07/19/2019 Administe [place] Prevnar 13 IM Intramuscular 01/17/2020 Administered Influenza High Dose Unknown 08/31/2020 Administered [facility] SARS-COV-2 Pfizer Unknown 10/10/2021 Administered [facility] SARS-COV-2 [...] Problem Status W/U Status Risk Notes Problem 22607911 Vitamin D defici ency (E55.9) Active confirmed Problem Perimenopausal disorder (436805535) Other specified menopausal and perimenopausal disorders (N95.8) Active confirmed Problem 12882904 Essential hypert ension (I10) Active confirmed Problem 055096339 Pure hypercholesterolemia (E78.00) Active confirmed Problem 561785372 Type 2 diabetes mellitus without complication, without long-term current use of insulin (E11.9) Active confirmed Problem 91880880 Hearing loss, unspecified hearing loss type, unspecified laterality (H91.90) Active confirmed Vital Signs Blood pressure diastolic 54 mm Hg 09/02/2025 Height 59.50 in 09/02/2025 Blood pressure systolic 132 mm Hg 09/02/2025 Weight 128 lbs 09/02/2025 BMI 25.42 kg/m2 09/02/2025 Encounters Encounter Location Date Provider Diagnosis Nikita Tran MD [address] [place] [address] Drive [address] [place] [id number] 02/25/2025 Nikita Tran Pure hypercholestero lemia E78.00 and Type 2 diabetes mellitus without complication, without long-term current use of insulin E11.9 Nikita Tran MD [address] [place] [address] Drive [address] [place] [id number] 08/26/2025 Nikita Tran Blood tests for rout ine general physical examination Z00.00 ; Type 2 diabetes mellitus without complication, without long-term current use of insulin E11.9 ; Pure hypercholesterolemia E78.00 and Vitamin D deficiency E55.9 Nikita Tran MD [address] [place] [address] Drive [address] [place] [id number] 09/02/2025 Nikita Tran Adult general medica l examination Z00.00 ; Type 2 diabetes mellitus without complication, without long-term current use of insulin E11.9 ; Essential hypertension I10 and Pure hypercholesterolemia E78.00 Nikita Tran MD [address] [place] [address] Drive [address] [place] [id number] 03/10/2025 Nikita Tran Type 2 diabetes bettye itus without complication, without long-term current use of insulin E11.9 and Pure hypercholesterolemia E78.00 Nikita Tran MD [address] [place] [address] [id number] 04/05/2025 Nikita Tran Type 2 diabetes bettye itus without complication, without long-term current use of insulin E11.9 and Essential hypertension I10 Nikita Tran MD [address] [place] [address] Drive [address] [place] [id number] 05/20/2025 Nikita Tran Assessments Encounter Date Diagnosis (ICD Code) Assessment Notes Treatment Notes Treatment Clinical Notes Section Notes 02/25/2025 Pure hypercholesterolemia (ICD-10 - E78.00) 08/26/[address] ine general physical examination (ICD-10 - Z00.00) 09/02/2025 Adult general medica l examination (ICD-10 - Z00.00) 03/10/2025 Type 2 diabetes bettye itus without [...] use of insulin (ICD-10 - E11.9) 09/02/2025 Type 2 diabetes bettye itus without complication, without long-term current use of insulin (ICD-10 - E11.9) 03/10/2025 Pure hypercholesterolemia (ICD-10 - E78.00) stable, will cntinue current regiment 04/05/2025 Essential hypertensi on (ICD-10 - I10) 08/26/2025 Pure hypercholesterolemia (ICD-10 - E78.00) 09/02/2025 Essential hypertensi on (ICD-10 - I10) 08/26/2025 Vitamin D deficiency (ICD-10 - E55.9) 09/02/2025 Pure hypercholesterolemia (ICD-10 - E78.00) Plan Of Treatment Pending Test Test Name Order Date Electrocardiogram (EKG) 01/15/2019 MAMMOGRAM DIGITAL BILATERAL SCREEN 08/26 Microalbumin, Random 08/26/2025 Microalbumin, Random 09/02/2025 UA ClnCatch+Micro w/rflx Cult 09/02/2025 UA ClnCatch+Micro w/rflx Cult 08/26/2025 Next Appt Details Provider Name:Nikita peralta, 02/23/2026 08:00:00 AM, [address] [place] [address], [address], [phone], Provider Name:Nikita peralta, 03/03/2026 01:30:00 PM, [address] [place] [address], [address], [phone], Provider Name:Nikita hardenr, 08/29/2026 07:30:00 AM, [address] [place] [address], [address], [phone], Provider Name:Nikita hardenr, 09/05/2026 01:00:00 PM, [address] [place] [address], [phone], Insurance Providers Payer Name Payer Address Payer Phone Subscriber Number Group Number Insured Name Patient Relationship to Insured Coverage Start Date Coverage End Date [employer] [address] [place], [place] [id number] Nita Calvo Self - patient is the insured MEDICARE NHIC JOHNNIE [address] [place] [id number] Nita Calvo Self - patient is the insured Medical (General) History Surgical History Surgery Date(Month/Year) tubal ligation 1973 bilateral cataract extraction 2013
== END 2025-09-02 14:58 | disposition home or self-care (01) ==
LOC: HO.LNP 14:57
PROVIDERS: Visit Provider Internal Medicine
DX: Z00.00 Encounter for general adult medical examination without abnormal findings (principal); I10 Essential (primary) hypertension; E11.9 Type 2 diabetes mellitus without complications; E78.00 Pure hypercholesterolemia, unspecified
CPT/HCPCS: 81001; 82043; 82570; 87086; 87088; 87186

== ENCOUNTER 2025-09-08 12:57 | Outpatient (REF) | payer MEDICARE, SELFPAY ==
--- OUTSIDE RECORDS SUMMARY | 2024-07-29 07:45 | XMS_ITS ---
Author Organization Nikita Tran MD Address [address] [place], [place] [phone] Care Team Providers Care Laborer Aquatic Life Name Role Phone Nikita Tran Primary Care Provider Allergies Allergen (clinical drug ingredient) Drug/Non Drug Allergy documented on EMR Reaction Allergy Type Onset Date Status Latex Gloves redness above lip and on top of ears Drug Allergy Active REASON FOR VISIT sinuses drainging green mucus ,coughing congested no fever, tested neg for Covid phone [phone], c/o had a sore throat last week productive cough, runny nasal congestion x 1.5 weeks, Audio [phone] Medications Medication SIG (Take, Route, Frequency, Duration) Notes Start Date End Date Status Vitamin D 50 MCG (1999) 1 tablet Orally Once a day for 30 day(s) 03/07/2020 Active OneTouch Ultra - USE TO TEST BLOOD HAGAN GAR THREE TIMES A DAY 2 to 3 times per day for 90 days Active Atorvastatin Calcium 40 mg take 1 tablet daily Orally Once a day for 90 days Active Amoxicillin-Pot Clavulanate 875-125 MG 1 tablet Orally every 12 hrs for 10 days 07/29/2024 Active Triamcinolone Acetonide 0.025 % 1 application to affected area Externally once a day or as needed Not-Taking metFORMIN HCl ER 500 mg 2 tablet Orally twice a day for 90 days Active Metoprolol Succinate ER 100 mg take 1 tablet daily Orally Once a day for 90 days Active glipiZIDE 10 MG take 1 tablet by tamanna th twice a day Orally twice a day for 90 days Active Valsartan-hydroCHLOROthia zide 160-12.5 MG 1 tablet Orally Once a day for 90 days 02/27/2024 Active Vital Signs Blood pressure systolic 139 mm Hg 07/29/20 24 Blood pressure diastolic 65 mm Hg 024 Height 59.50 in 07/29/2024 weight at home is 124 BP 139 /65 no temp Encounters Encounter Location Date Provider Diagnosis Nikita Tran MD [address] [place] [phone] 07/29/2024 Nikita Tran Acute bronchitis, unspecified organism J20.9 Assessments Encounter Date Diagnosis (ICD Code) Assessment Notes Treatment Notes Treatment Clinical Notes Section Notes 07/29/2024 Acute bronchitis, unspecified organism (ICD-10 - J20.9) patient verbalized understanding of medication and directions for use Plan Of Treatment Medication Medication Name Sig Start Date Stop Date Notes Amoxicillin-Pot Clavulanate 875-125 MG 1 tablet Orally every 12 hrs for 10 days 07/29/2024 Treatment Notes Assessment Notes Acute bronchitis, unspecified organism p atient verbalized understanding of medication and directions for use Next Appt Details Provider Name:Nikita peralta, 02/23/2026 08:00:00 AM, [address] [place] [address], [phone], Provider Name:Nikita peralta, 03/03/2026 01:30:00 PM, [address] [place] [address], [phone], Provider Name:Nikita peralta, 08/29/2026 07:30:00 AM, [address] [place] [address], [phone], Provider Name:Nikita peralta, 09/05/2026 01:00:00 PM, [address] [place] [address], [phone], Progress Notes * Crystal GUERRERO:[birth year] (79 yo F)Acc No.[id number]:07/29/2024 Patient: Nita Cisneros Provider: Gilberto Tran MD :1945 A ge:79 Y S ex:Female Date:07/29/2024 Address:[address] [place] [address] Subjective: * Chief Complaints: * s inuses drainging green mucus ,coughing congested no fever, tested neg for Covid phone [phone]/o had a sore throat last week productive cough, runny nasal congestion x 1.5 weeksAudio [phone] * HPI: S ymptom(s): Telehealth L ocation of provider rendering services: [address], [address], L ocation of patient: a t address listed in demographics for today's visit, P atient identification confirmed using: Blaise huber, PÉREZ, SSN, Insurance information, T elehealth method: T elephone only. Patient not visible to care provider., C onsent: P atient verbally consented to treatment, Patient verbally consented to billing insurance company, Patient informed of any privacy concerns related to method of visit, T otal time spend talking with patient (minutes) 1 5. patient is a 79 yp female audio telehealth visit, here as emergency for respiratory infection. wants to go away next week. has a deep productive cough. lot if secretions in sinuses too. all green/ no fever. * ROS: G eneral/Constitutional: Denies C hills. D enies F atigue. D enies F ever. D enies H eadache. E NT: Patient denies d ecreased sense of smell , any loss of taste. D enies S ore throat, h ad a sore throat last week. R espiratory: Admits C ough. D enies S hortness of breath at rest. D enies S hortness of breath with exertion. A dmits S putum production. G astrointestinal: Denies D iarrhea. D enies [...] area Externally once a day or as neededMedication List reviewed and reconciled with the patientNot-Taking/PRN Triamcinolone Acetonide 0.025 % Cream 1 application to affected area Externally once a day or as neededMedication List reviewed and reconciled with the patient * Allergies: L atex Gloves: redness above lip and on top of ears - Allergyyes[Allergies Verified] Objective: * Vitals: H t: 59.50, BP:139/65 weight at home is 124 BP 139/65 no temp. Assessment: * Assessment: 1. A cute bronchitis, unspecified organism - J20.9 (Primary) Plan: * Treatment: * Procedure Codes: * * Sign off status: Completed true * Provider: Gilberto Tran MD Date: 0 07/29/2024 Generated for Alcira tomlinson/Aayush/Demetriaitting on: 1 03:49 PM EDT History and Physical Notes * HPI (History of Present Illness) Category Sub-Category Detail Notes Category Not es Symptom(s) Telehealth Location of [facility] rendering services:: [address], [address] patient is a 79 yp female audio telehealth visit, here as emergency for respiratory infection. wants to go away next week. has a deep productive cough. lot if secretions in sinuses too. all green/ no fever Location of patient:: at address listed in demographics for today's visit Patient identification confirmed using:: Name, , SSN, Insurance information Telehealth method:: Telephone only. Nida ent not visible to care provider. Consent:: Patient verbally c onsented to treatment, Patient verbally consented to billing insurance company, Patient informed of any privacy concerns related to method of visit Total time spend talking with patient (m inutes): 15
--- OUTSIDE RECORDS SUMMARY | 2024-08-24 03:45 | XMS_ITS ---
Author Organization Nikita Tran MD Address [address] [place], [place] [id number] Care Team Providers Care Accounting Officer Name Role Phone Nikita Tran Primary Care Provider Results Component Value Reference Range Notes Complete Blood Count Auto Di ff Reviewed date:08/25/2024 06:49:53 PM Interpretation: Performing Lab:[facility], [address] [place] [phone] Notes/Report: White Blood Count 7.5 4.8-10.8 X10*3/uL [...] NRBC Abs Auto 0.000 0.0-0.012 X10*3/uL Comprehensive [place]. Panel Fa st Reviewed date:08/25/2024 06:51:45 PM Interpretation: Performing Lab:[facility], [address] [place] [phone] Notes/Report: Sodium 139 135-145 mmol/L Potassium 5.0 3.3-5.1 mmol/L Chloride 105 96-108 mmol/L Carbon Dioxide 29 22-29 mmol/L Anion Gap 10 12-20 Blood Urea Nitrogen 17 9-16 mg/dL Creatinine 0.85 0.5-1.4 mg/dL Estimated Glomerular Filt Rate > 60 NOTE: For -Thai individuals, multiply the result by 1.210. Chronic [...] PROFILE Reviewed date:08/25/2024 02:19:02 PM Interpretation: Performing Lab:[facility], [address] [place] [phone] Notes/Report: Iron 141 30-160 mcg/dL Total Iron Binding Capacity 267 228-428 mcg/d L Percent Iron Saturation 53 15-50 % Unsaturated Iron Binding 126 Lipid Panel Reviewed date:08/25/2024 02:20:07 PM Interpretation: Performing Lab:[facility], [address] [place] [phone] Notes/Report: Triglycerides 93 <150 mg/dL Desirable Triglyceride: [...] Total Reviewed date:08/25/2024 02:20:37 PM Interpretation: Performing Lab:[facility], [address] [place] [phone] Notes/Report: Vitamin D 25-OH Total 69.5 >30 [...] A1c Reviewed date:08/25/2024 02:19:59 PM Interpretation: Performing Lab:[facility], [address] [facility], [place] [address] Notes/Report: Hemoglobin A1c % 9.2 <6.0 % [...] average glucose, using the formula of the R5C-Ywmrxuv Average Glucose study (ADAG), Diabetes Care, Vol.31,#8, 2007 REASON FOR VISIT yearly fasting labs Encounters Encounter Location Date Provider Diagnosis Nikita Tran MD [address] [place] [phone] 08/24/2024 Nikita Tran Blood tests for rout [...] Details Provider Name:Nikita peralta, 02/23/2026 08:00:00 AM, [address] [place] [address], [address], [phone], Provider Name:Nikita peralta, 03/03/2026 01:30:00 PM, [address] [place] [address], [address], [phone], Provider Name:Nikita peralta, 08/29/2026 07:30:00 AM, [address], [address], [place], [place], [phone], Provider Name:Nikita Sosa ier, 09/05/2026 01:00:00 PM, [address], [address], [place], [phone], Progress Notes * Natanael GUERREROaDOB:[birth year] (79 yo F)Acc No.[id number]:08/24/2024 Progress Note Patient: Nita Cisneros Provider: Gilberto Tran MD :1945 A ge:79 Y S ex:Female Date:08/24/2024 Address:[address] [place], [place] [phone] Subjective: * Chief Complaints: * Y early [...] Blood Count Auto Diff L AB: Comprehensive [place]. Panel Fast L AB: IRON PROFILE L AB: Lipid Panel L AB: Vitamin D 25-OH Total L AB: Hemoglobin A1c 3. E ssential hypertension L AB: Microalbumin, Random L AB: UA ClnCatch+Micro w/rflx Cult L AB: Complete Blood Count Auto Diff L AB: Comprehensive [place]. Panel Fast L AB: IRON PROFILE L AB: Lipid Panel L AB: Vitamin D 25-OH Total L AB: Hemoglobin A1c 4. P ure hypercholesterolemia L AB: Microalbumin, Random L AB: UA ClnCatch+Micro w/rflx Cult L AB: Complete Blood Count Auto Diff L AB: Comprehensive [place]. Panel Fast L AB: IRON PROFILE L AB: Lipid Panel L AB: Vitamin D 25-OH Total L AB: Hemoglobin A1c 5. V itamin D deficiency L AB: Microalbumin, Random L AB: UA ClnCatch+Micro w/rflx Cult L AB: Complete Blood Count Auto Diff L AB: Comprehensive [place]. Panel Fast L AB: IRON PROFILE L AB: Lipid Panel L AB: Vitamin D 25-OH Total L AB: Hemoglobin A1c * Procedure Codes: 3 6415 VENIPUNCT, ROUTINE* * * Sign off status: Completed true * Provider: Gilberto Tran MD Date: Generated for Alcira tomlinson/Aayush/Lana on: 03:49 PM EDT
--- OUTSIDE RECORDS SUMMARY | 2024-08-31 09:00 | XMS_ITS ---
Author Organization Nikita Tran MD Address [address] [place], [place] [id number] Care Team Providers Care Coconut Boiler Name Role Phone Nikita Tran Primary Care [...] Date Provider Diagnosis Nikita Tran MD 10 [facility] [address] [place] [phone] 08/31/2024 Nikita Tran Type 2 diabetes bettye [...] Reason: Provider Name:Nikita peralta, 02/23/2026 08:00:00 AM, [address] [place] [address], [address] [place] [address], [phone], Provider Name:Nikita peralta, 03/03/2026 01:30:00 PM, [address] [place] [address], [address], [phone], Provider Name:Nikita peralta, 08/29/2026 07:30:00 AM, [address] [place] [address], [address] [place] [address], [phone], Provider Name:Nikita peralta, 09/05/2026 01:00:00 PM, [address] [place] [address], [address] [place] [address], [phone], Progress Notes * Natanael GUERREROStephanieB:[birth year] (79 yo F)Acc No.[id number]:08/31/2024 Progress Notes Patient: Nita Cisneros Provider: Gilberto Tran MD :1945 A ge:79 Y S ex:Female Date:08/31/2024 Address:[address] [place], [place] [phone] Subjective: * Chief Complaints: * A nnual [...] Pets: [email or web address]. no Travel outside of the [place]. * Medications: T akingValsartan-hydroCHLOROthiazide 160-12.5 MG [...] Auto 0.000 0.0-0.012 - X10*3/uL L ab:Comprehensive [place]. Panel Fast (Order Date - 08/24/2024) (Collection [...] MD Date: Generated for Alcira tomlinson/Aayush/Demetriaitting on: 03:49 PM EDT History and Physical Notes [...]
--- OUTSIDE RECORDS SUMMARY | 2025-02-25 03:30 | XMS_ITS ---
Author Organization Nikita Tran MD Address [address] [place], [place] [id number] Care Team Providers Care Weather Observer Name Role Phone Nikita Tran Primary Care Provider [phone] Results Component Value Reference Range Notes Liver Panel Reviewed date:02/28/2025 04:27:49 PM Interpretation: Performing Lab:[address] [phone] Notes/Report: Bilirubin Total 0.5 0.0-1.0 mg/dL Bilirubin Direct 0.2 0.0-0.5 mg/dL Aspartate Amino Transferase 40 5-31 U/L Alanine Aminotransferase 23 0-31 U/L Total Protein 7.1 6.5-8.0 g/dL Albumin Level 4.0 3.5-5.0 g/dL Alkaline Phosphatase 101 39-117 U/L Glucose Fasting Reviewed date:02/28/2025 04:27:41 PM Interpretation: Performing Lab:[address] [phone] Notes/Report: Glucose Fasting 136 60-99 mg/dL A fasting glucose of 126 mg/dl or greater on more than one occasion is considered diagnostic of diabetes. Lipid Panel with Reflex Reviewed date:02/28/2025 04:27:32 PM Interpretation: Performing Lab:[facility], [address] [place] [phone] Notes/Report: Triglycerides 151 <150 mg/dL Desirable Triglyceride: [...] A1c Reviewed date:02/25/2025 07:20:02 PM Interpretation: Performing Lab:[facility], [address] [place] [phone] Notes/Report: Hemoglobin A1c % 9.9 <6.0 % [...] average glucose, using the formula of the V2S-Xkrgqsg Average Glucose study (ADAG), Diabetes Care, Vol.31,#8, Jun. 2007 REASON FOR VISIT fasting lipids Encounters Encounter Location Date Provider Diagnosis Nikita Tran MD [address] [place] [address] Drive [address] [place], [place] [phone] 02/25/2025 Nikita Tran Pure hypercholestero lemia E78.00 [...] 08:00:00 AM, [address], [address], [place], [phone], Provider Name:Nikita hardenr, 03/03/2026 01:30:00 PM, [address], [address], [place], [phone], Provider Name:Nikita Sosa ier, 08/29/2026 07:30:00 AM, [address], [address], [place], [place], [phone], Provider Name:Nikita hardenr, 09/05/2026 01:00:00 PM, [address], Suite [facility], [place], [phone], Progress Notes * Natanael GUERREROStephanieB:[birth year] (80 yo F)Acc No.[id number]:02/25/2025 Progress Note Patient: Nita BOSS Provider: Gilberto Tran MD :1945 A ge:79 Y S ex:Female Date:02/25/2025 Address:[address] [place] [address] Subjective: * Chief Complaints: * 1 . [...] 02/25/2025 Generated for Alcira tomlinson/Aayush/Demetriaitting on: 1 03:49 PM EDT
--- OUTSIDE RECORDS SUMMARY | 2025-03-10 09:45 | XMS_ITS ---
Author Organization Nikita Tran MD Address [address] [place], [place] [phone] Care Team Providers Care Card Stripper Name Role Phone Nikita Tran Primary Care Provider Allergies Allergen (clinical drug ingredient) Drug/Non Drug Allergy documented on EMR Reaction Allergy Type Onset Date Status Latex Gloves redness above lip and on top of ears Drug Allergy Active Results Component Value Reference Range Notes Glucose, finger stick Reviewed date:03/10/2025 01:39:17 PM Interpretation: Performing Lab: Notes/Report: Value 128 REASON FOR VISIT 6 month Medications Medication SIG (Take, Route, Frequency, Duration) Notes Start Date End Date Status glipiZIDE 10 MG take 1 tablet by twice a day Orally twice a day Active metFORMIN HCl ER 500 mg 2 tablet Orally twice a day Active Triamcinolone Acetonide 0.025 % 1 application to affected area Externally once a day or as needed Not-Taking Metoprolol Succinate ER 100 mg take 1 tablet daily Orally Once a day for 90 days Active Atorvastatin Calcium 40 mg take 1 tablet daily Orally Once a day Active OneTouch Ultra - USE TO TEST BLOOD HAGAN GAR THREE TIMES A DAY 2 to 3 times per day for 90 days Active Vitamin D 50 MCG (1999 UT) 1 tablet Orally Once a day for 30 day(s) 03/07/2020 Active Valsartan-hydroCHLOROthia zide 160-12.5 MG TAKE 1 TABLET ONCE DAILY for 90 Active Vital Signs Blood pressure systolic 158 mm Hg 03/10/20 25 Blood pressure diastolic 60 mm Hg 025 Height 59.50 in 03/10/2025 Weight 128 lbs 03/10/2025 BMI 25.42 kg/m2 03/10/2025 weight is down 3 pounds surjit cordova 08-31-24 Encounters Encounter Location Date Provider Diagnosis Nikita Tran MD [address] [place] [phone] 03/10/2025 Nikita Tran Type 2 diabetes bettye itus without complication, without long-term current use of insulin E11.9 and Pure hypercholesterolemia E78.00 Assessments Encounter Date Diagnosis (ICD Code) Assessment Notes Treatment Notes Treatment Clinical Notes Section Notes 03/10/2025 Type 2 diabetes bettye itus without complication, without long-term current use of insulin (ICD-10 - E11.9) running high, will continue current regiment, advised on diet and exercise, will continue to monitor 03/10/2025 Pure hypercholesterolemia (ICD-10 - E78.00) stable, will cntinue current regiment Plan Of Treatment Medication Medication Name Sig Start Date Stop Date Notes glipiZIDE 10 MG take 1 tablet by tamanna th twice a day Orally twice a day metFORMIN HCl ER 500 mg 2 tablet Orally twice a day Atorvastatin Calcium 40 mg take 1 tablet daily Orally Once a day Treatment Notes Assessment Notes Type 2 diabetes mellitus wit hout complication, without long-term current use of insulin running high, will continue current regiment, advised on diet and exercise, will continue to monitor Pure hypercholesterolemia stable, will c ntinue current regiment Next Appt Details Follow Up: 6 month, Reason: Provider Name:Nikita peralta, 02/23/2026 08:00:00 AM, [address] [place] [address], [address], [phone], Provider Name:Nikita peralta, 03/03/2026 01:30:00 PM, [address] [place] [address], [address], [phone], Provider Name:Nikita peralta, 08/29/2026 07:30:00 AM, [address] [place] [address], [phone], Provider Name:Nikita Sosa ier, 09/05/2026 01:00:00 PM, [address], [address], [place], [place], [phone], Progress Notes * Sherice GUERREROB:[birth year] (79 yo F)Acc No.[id number]:03/10/2025 Progress Notes Patient: Nita BOSS Provider: Gilberto Tran MD :1945 A ge:79 Y S ex:Female Date:03/10/2025 Address:[address] [place], [place] [phone] Subjective: * Chief Complaints: * 6 month * HPI: S ymptom(s): patiebnt is a 79 yo female here for 6 month follow up visit. * ROS: G eneral/Constitutional: Denies C hills. D enies F atigue. D enies F ever. D enies H eadache. E NT: Denies S ore throat. E ndocrine: Admits D ifficulty sleeping. D enies D izziness.?Denies E xcessive sweating. D enies E xcessive thirst. R espiratory: Denies S hortness of breath at rest. D enies S hortness of breath with exertion. C ardiovascular: Denies C hest pain at rest. D enies C hest pain with exertion. D enies P alpitations. D enies S hortness of breath. G astrointestinal: Denies D iarrhea. D enies N ausea. * Medical History: * Surgical History: * Hospitalization/Major Diagno stic Procedure: * Medications: T akingMetoprolol Succinate ER 100 mg Tablet Extended Release 24 Hour take 1 tablet daily Orally Once a day glipiZIDE 10 MG Tablet take 1 tablet by mouth twice a day Orally twice a day metFORMIN HCl ER 500 mg Tablet Extended Release 24 Hour 2 tablet Orally twice a day Atorvastatin Calcium 40 mg Tablet take 1 tablet daily Orally Once a day Vitamin D 50 MCG (2000 UT) Tablet 1 tablet Orally Once a day OneTouch Ultra - Strip USE TO TEST BLOOD SUGAR THREE TIMES A DAY 2 to 3 times per day Valsartan-hydroCHLOROthiazide 160-12.5 MG Tablet TAKE 1 TABLET ONCE DAILY Taking Metoprolol Succinate ER 100 mg Tablet Extended Release 24 Hour take 1 tablet daily Orally Once a day Taking glipiZIDE 10 MG Tablet take 1 tablet by mouth twice a day Orally twice a day Taking metFORMIN HCl ER 500 mg Tablet Extended Release 24 Hour 2 tablet Orally twice a day Taking Atorvastatin Calcium 40 mg Tablet take 1 tablet daily Orally Once a day Taking Vitamin D 50 MCG (1999 UT) Tablet 1 tablet Orally Once a day Taking OneTouch Ultra - Strip USE TO TEST BLOOD SUGAR THREE TIMES A DAY 2 to 3 times per day Taking Valsartan-hydroCHLOROthiazide 160-12.5 MG Tablet TAKE 1 TABLET ONCE DAILY Not-Taking/PRNTriamcinolone Acetonide 0.025 % Cream 1 application to affected area Externally once a day or as needed Medication List reviewed and reconciled with the patientNot-Taking/PRN Triamcinolone Acetonide 0.025 % Cream 1 application to affected area Externally once a day or as needed Medication List reviewed and reconciled with the patient * Allergies: L atex Gloves: redness above lip and on top of ears - Allergyyes[Allergies Verified] Objective: * Vitals: H t: 59.50, Wt: 128, BMI:25.42, BP:158/60, Repeat BP:120/70, Wt-k.06. weight is down 3 pounds since 08-31-24. * P ast Orders: L ab:Liver Panel (Order Date - 02/25/2025) (Collection Date & Time - 02/25/2025 07:30 AM) Value Reference Range Bilirubin Total 0.5 0.0-1.0 - mg/dL Bilirubin Direct 0.2 0.0-0.5 - mg/dL Aspartate Amino Transferase 40 H 5-31 - U/L Alanine Aminotransferase 23 0-31 - U/L Total Protein 7.1 6.5-8.0 - g/dL Albumin Level 4.0 3.5-5.0 - g/dL Alkaline Phosphatase 101 39-117 - U/L L ab:Glucose Fasting (Order Date - 02/25/2025) (Collection Date & Time - 02/25/2025 07:30 AM) Value Reference Range Glucose Fasting 136 H 60-99 - mg/dL L ab:Lipid Panel with Reflex (Order Date - 02/25/2025) (Collection Date & Time - 02/25/2025 07:30 AM) Value Reference Range Triglycerides 151 H <150 - mg/dL Cholesterol 169 <200 - mg/dL LDL Cholesterol Calculated 87 <100 - mg/dL HDL Cholesterol 52 >40 - mg/dL L ab:Hemoglobin A1c (Order Date - 02/25/2025) (Collection Date & Time - 02/25/2025 07:30 AM) Value Reference Range Hemoglobin A1c % 9.9 H <6.0 - % Estimated Average Glucose 237 - mg/dL * Examination: G eneral Examination: GENERAL APPEARANCE: a lert, well hydrated, in no distress.? HEAD: n ormocephalic. SKIN: g ood turgor. HEART: r egular rate and rhythm, no murmurs, rubs, gallops.? LUNGS: n o wheezes, rales, rhonchi, good air movement, clear to auscultation bilaterally. Assessment: * Assessment: 1. T ype 2 diabetes mellitus without complication, without long-term current use of insulin - E11.9 (Primary) 2 . P ure hypercholesterolemia - E78.00 Plan: * Treatment: Value Reference Range V alue 128 Notes: running high, will continue current regiment, advised on diet and exercise, will continue tomonitor??2.?Pure hypercholesterolemia? Continue Atorvastatin Calcium Tablet, 40 mg, take 1 tablet daily, Orally, Once a day.?? Notes: stable, will cntinue current regiment?? * Procedure Codes: 8 2947 ASSAY, GLUCOSE, BLOOD QUANT, Modifiers: QW * Follow Up: 6 month * * Sign off status: Completed true * Provider: Gilberto Tran MD Date: 0 03/10/2025 Generated for Alcira tomlinson/Aayush/Demetriaitting on: 03:50 PM EDT History and Physical Notes * HPI (History of Present Illness) Category Sub-Category Detail Notes Category Not es Symptom(s) patiebnt is a 7 0 yo female here for 6 month follow up visit Examination Category Sub-Category Detail Notes Category Not es General Examination GENERAL APPEARANCE: alert, w ell hydrated, in no distress HEAD: normocephalic HEART: regular rate and rhy thm, no murmurs, rubs, gallops LUNGS: no wheezes, rales, r honchi, good air movement, clear to auscultation bilaterally SKIN: good turgor
--- OUTSIDE RECORDS SUMMARY | 2025-04-05 10:33 | XMS_ITS ---
Author Organization Nikita Tran MD Address [address] [place] [phone] Care Team Providers Care Silk Weaver Name Role Phone Nikita Tran Primary Care [...] Date Provider Diagnosis Nikita Tran MD [address] [facility] [address] [facility] [address] [place] [phone] 04/05/2025 Nikita Tran Type 2 diabetes mellitus [...] Provider Name:Nikita Sosa kathryn, 02/23/2026 08:00:00 AM, [address] [place] [address], [address] [facility], [place], [place], [phone], Provider Name:Nikita Sosa dereckr, 03/03/2026 01:30:00 PM, [address] [place] [address], [place] [address], [place], [place], [phone], Provider Name:Nikita Sosa dereckr, 08/29/2026 07:30:00 AM, [address] [place] [address], [place] [address], [place], [place], [phone], Provider Name:Nikita Sosa dereckr, 09/05/2026 01:00:00 PM, [address] [place] [address], [place] [address], [place], [place], [phone], Progress Notes * Sherice GUERREROB:[birth year] (79 yo F)Acc No.[id number]:04/05/2025 Patient: Blaise SETH Nita :1945 A ge:79 Y S ex:Female Address:[address] [place] [address], [address] * Refills Refill metFORMIN HCl ER Tablet [...] * Date: Generated for Alcira tomlinson/Aayush/Lana on: 03:50 PM EDT
--- OUTSIDE RECORDS SUMMARY | 2025-05-20 03:16 | XMS_ITS ---
Author Organization Nikita Tran MD Address [address] [facility] [address] [place] [phone] Care Team Providers Care Communications Marketing Intern Name Role Nikita Pereira Primary Care Provider REASON FOR VISIT Labs needed for Quality Encounters Encounter Location Date Provider Diagnosis Nikita Tran MD [address] [facility] [address] [place] [phone] 05/20/2025 Nikita Tran Plan Of Treatment Next Appt Details Provider Name:Nikita peralta, 02/23/2026 08:00:00 AM, [address] [place] [address], [address], [phone], Provider Name:Nikita peralta, 03/03/2026 01:30:00 PM, [address] [place] [address], [address], [phone], Provider Name:Nikita peralta, 08/29/2026 07:30:00 AM, [address] [place] [address], [address], [phone], Provider Name:Nikita peralta, 09/05/2026 01:00:00 PM, [address] [place] [address], [address], [phone], Progress Notes * Natanael GUERREROaDOB:[birth year] (79 yo F)Acc No.[id number]:05/20/2025 Patient: Nita BOSS :1945 A ge:79 Y S ex:Female Address:[address] [place] [address] * true * Date: Generated for Alcira tomlinson/Aayush/Solitariosmitting on: 03:49 PM EDT
--- OUTSIDE RECORDS SUMMARY | 2025-08-26 03:45 | XMS_ITS ---
Author Organization Nikita Tran MD Address [address] [place], [place] [id number] Care Team Providers Care Transition Social Worker Name Role Phone Nikita Tran Primary Care Provider Results Component Value Reference Range Notes Complete Blood Count Auto Di ff Reviewed date:08/26/2025 12:48:08 PM Interpretation: Performing Lab:[facility], [address] [place] [phone] Notes/Report: White Blood Count 8.5 4.8-10.8 X10*3/uL Red Blood Count 3.91 4.20-5.50 X10*6/uL Hemoglobin 12.4 12.0-16.0 g/dl Hematocrit 37.3 37.0-47.0 % Mean Corpuscular Volume 95.4 80.0-98.0 fL Mean Corpuscular Hemoglobin 31.7 27.0-33.0 pg Mean Corpuscular HGB Conc 33.2 31.0-35.0 g/dl Red Cell Distribution Width 12.4 11.0-16.0 % Platelet Count 270 160-400 X10*3/uL Mean Platelet Volume 11.0 9.4-12.3 fL Neutrophils Percent Auto 55.1 45-73 % Imm Gran Pct Auto 0.4 0.0-0.4 % Lymphocytes Percent Auto 33.7 20-40 % Monocytes Percent Auto 8.1 2-11 % Eosinophils Percent Auto 2.1 0-4 % Basophils Percent Auto 0.6 0-2 % NRBC Pct Auto 0.0 0.0-0.2 /100WBC Neutrophils Absolute Auto 4.7 2.0-8.3 x10*3/u L Imm Gran Abs Auto 0.03 0.00-0.03 X10*3/uL Lymphocytes Absolute Auto 2.9 1.2-4.9 X10*3/u L Monocytes Absolute Auto 0.7 0.1-1.2 X10*3/uL Eosinophils Absolute Auto 0.2 0.0-0.4 X10*3/u L Basophils Absolute Auto 0.1 0.0-0.2 X10*3/uL NRBC Abs Auto 0.000 0.0-0.012 X10*3/uL Comprehensive [place]. Panel Fa st Reviewed date:08/26/2025 03:46:11 PM Interpretation: Performing Lab:[address] [phone] Notes/Report: Sodium 141 135-145 mmol/L Potassium 4.6 3.3-5.1 mmol/L Chloride 105 96-108 mmol/L Carbon Dioxide 27 22-29 mmol/L Anion Gap 14 12-20 Blood Urea Nitrogen 21 9-16 mg/dL Creatinine 0.91 0.5-1.4 mg/dL Estimated Glomerular Filt Rate 59 Chronic Kidney Disease: Estimated GFR < 60 mL/min/1.73m2 Severe Kidney Disease: Estimated GFR < 15 mL/min/1.73m2 Glucose Fasting 117 60-99 mg/dL A fasting glucose from 100-125 mg/dl is considered impaired (pre-diabetes). Calcium 9.8 8.4-10.2 mg/dL Bilirubin Total 0.5 0.0-1.0 mg/dL Aspartate Amino Transferase 35 5-31 U/L Alanine Aminotransferase 18 0-31 U/L Total Protein 6.9 6.5-8.0 g/dL Albumin Level 4.3 3.5-5.0 g/dL Alkaline Phosphatase 91 39-117 U/L Lipid Panel Reviewed date:08/26/2025 03:44:48 PM Interpretation: Performing Lab:[address] [phone] Notes/Report: Triglycerides 113 <150 mg/dL Desirable Triglyceride: less than 150 mg/dL Borderline High Triglyceride 150-199 mg/dL High Triglyceride: 200-499 mg/dL Very High Triglyceride: greater than or equal to 5OO mg/dL Cholesterol 136 <200 mg/dL Desirable Cholesterol: less than 200 mg/dL Borderline High Cholesterol: 200-239 mg/dL High Cholesterol: greater than 239 mg/dL LDL Cholesterol Calculated 67 <100 mg/dL Desirable LDL: less than 100 mg/dL Near Optimal/Above Optimal LDL: 110-129 mg/dL Borderline High LDL: 130-159 mg/dL High LDL: 160-189 mg/dL Very High LDL: greater than or equal to 190 mg/dL HDL Cholesterol 47 >40 mg/dL Desirable HDL: greater than 40 mg/dL Note: This HDL assay may give artificially low results in patients with liver disease. Vitamin D 25-OH Total Reviewed date:08/26/2025 03:45:06 PM Interpretation: Performing Lab:[address] [phone] Notes/Report: Vitamin D 25-OH Total 52.7 >30 ng/mL Health Based Reference Values* < 20 ng/mL Deficient 20-30 ng/mL Insufficient > 30 ng/mL Sufficient *Sheri BURKETT. N Engl J Med. 2007;357:266-280 There is no well-established upper level of normal vitamin D levels. Some laboratories use 50 ng/mL as an upper limit of normal. However, toxicity is patient-dependent and may occur at any level. Careful correlation with the patient's presentation is necessary and, if there is concern for vitamin D toxicity, treatment should be considered irrespective of the serum level. Care must be taken in interpreting Vitamin [...] method such as LC-MS/MS. Hemoglobin A1c Reviewed date:08/26/2025 12:42:09 PM Interpretation: Performing Lab:[address] [phone] Notes/Report: Hemoglobin A1c % 8.6 <6.0 % Hemoglobin A1C Reference Range Adults: 4.8 - 6.0 % Non diabetic: < 6.0 % Goal: < 7.0 % Additional Action Suggested: > 8.0 % Note: Hemoglobin A1c results are invalid for patients with abnormal amounts of HbF. Blood transfusions may impact the HbA1c concentration in the patient sample. Estimated Average Glucose 200 eAG = Estimated average glucose which is %A1C expressed as average glucose, using the formula of the W8H-Xndncke Average Glucose study (ADAG), Diabetes Care, Vol.31,#8, 2007 REASON FOR VISIT yearly fasting labs Encounters Encounter Location Date Provider Diagnosis Nikita Tran MD [address] [place] [address] [place] [phone] 08/26/2025 Nikita Tran Blood tests for rout ine general physical examination Z00.00 ; Type 2 diabetes mellitus without complication, without long-term current use of insulin E11.9 ; Pure hypercholesterolemia E78.00 and Vitamin D deficiency E55.9 Assessments Encounter Date Diagnosis (ICD Code) Assessment Notes Treatment Notes Treatment Clinical Notes Section Notes 08/26/2025 Blood tests for rout ine general physical examination (ICD-10 - Z00.00) 08/26/2025 Type 2 diabetes bettye itus without complication, without long-term current use of insulin (ICD-10 - E11.9) 08/26/2025 Pure hypercholesterolemia (ICD-10 - E78.00) 08/26/2025 Vitamin D deficiency (ICD-10 - E55.9) Plan Of Treatment Pending Test Test Name Order Date Microalbumin, Random 08/26/2025 UA ClnCatch+Micro w/rflx Cult 08/26/2025 Next Appt Details Provider Name:Nikita peralta, 02/23/2026 08:00:00 AM, [address] [place] [address], [place] [address], [place], [place], [phone], Provider Name:Nikita peralta, 03/03/2026 01:30:00 PM, [address] [place] [address], [address], [phone], Provider Name:Nikita peralta, 08/29/2026 07:30:00 AM, [address], [address], [place], [place], [phone], Provider Name:Nikita Sosa dereckr, 09/05/2026 01:00:00 PM, [address], [address], [place], [place], [phone], Progress Notes * Natanael GUERREROaDOB:[birth year] (80 yo F)Acc No.[id number]:08/26/2025 Progress Note Patient: Nita BOSS Provider: Gilberto Tran MD :1945 A ge:80 Y S ex:Female Date:08/26/2025 Address:[address] [place], [place] [phone] Subjective: * Chief Complaints: * 1 . Yearly fasting labs. * Medical History: Objective: * Vitals: Assessment: * Assessment: 1. B lood tests for routine general physical examination - Z00.00 (Primary) 2 .?Type 2 diabetes mellitus without complication, without long-term current use of insulin - E11.9 3 . P ure hypercholesterolemia - E78.00 4 . V itamin D deficiency - E55.9 Plan: * Treatment: 2. T ype 2 diabetes mellitus without complication, without long-term current use of insulin L AB: Microalbumin, Random L AB: UA ClnCatch+Micro w/rflx Cult L AB: Complete Blood Count Auto Diff (Collection Date & Time - 08/26/2025 07:30 AM) L AB: Comprehensive [place]. Panel Fast (Collection Date & Time - 08/26/2025 07:30 AM) L AB: Lipid Panel (Collection Date & Time - 08/26/2025 07:30 AM) L AB: Vitamin D 25-OH Total (Collection Date & Time - 08/26/2025 07:30 AM) L AB: Hemoglobin A1c (Collection Date & Time - 08/26/2025 07:30 AM) 3. P ure hypercholesterolemia L AB: Microalbumin, Random L AB: UA ClnCatch+Micro w/rflx Cult L AB: Complete Blood Count Auto Diff (Collection Date & Time - 08/26/2025 07:30 AM) L AB: Comprehensive [place]. Panel Fast (Collection Date & Time - 08/26/2025 07:30 AM) L AB: Lipid Panel (Collection Date & Time - 08/26/2025 07:30 AM) L AB: Vitamin D 25-OH Total (Collection Date & Time - 08/26/2025 07:30 AM) L AB: Hemoglobin A1c (Collection Date & Time - 08/26/2025 07:30 AM) 4. V itamin D deficiency L AB: Microalbumin, Random L AB: UA ClnCatch+Micro w/rflx Cult L AB: Complete Blood Count Auto Diff (Collection Date & Time - 08/26/2025 07:30 AM) L AB: Comprehensive [place]. Panel Fast (Collection Date & Time - 08/26/2025 07:30 AM) L AB: Lipid Panel (Collection Date & Time - 08/26/2025 07:30 AM) L AB: Vitamin D 25-OH Total (Collection Date & Time - 08/26/2025 07:30 AM) L AB: Hemoglobin A1c (Collection Date & Time - 08/26/2025 07:30 AM) * Procedure Codes: 3 6415 VENIPUNCT, ROUTINE* * * The named appointment provid er may or may not be the originator of this progress note, and it is not deemed complete until electronically signed by the appointment provider. Sign off status: Pending * Provider: Gilberto Tran MD Date: Generated for Alcira tomlinson/Aayush/Demetriaitting on: 03:49 PM EDT
--- OUTSIDE RECORDS SUMMARY | 2025-09-02 09:00 | XMS_ITS ---
Author Organization Nikita Tran MD Address [address] [place], [place] [id number] Care Team Providers Care Medart Operator Name Role Phone Nikita Tran Primary Care Provider Allergies Allergen (clinical drug ingredient) Drug/Non Drug Allergy documented on EMR Reaction Allergy Type Onset Date Status Latex Gloves redness above lip and on top of ears Drug Allergy Active Results Component Value Reference Range Notes Microalbumin, Random Reviewed date:09/02/2025 04:41:19 PM Interpretation: Performing Lab:[facility], [address] [place] [phone] Notes/Report: Creatinine Urine 57.41 Microalbumin Urine 98.0 Microalbum/Creatinine Ratio Ur 170.7 <30 ug/mg cr Albumin/Creatinine Ratio Reference Ranges: Normal: < 30 ug/mg creatinine Microalbuminuria: 30 - 300 ug/mg creatinine Clinical Albuminuria: > 300 ug/mg creatinine UA ClnCatch+Micro w/rflx Cul t Reviewed date:09/02/2025 04:47:51 PM Interpretation: Performing Lab:[facility], [address] [place] [phone] Notes/Report: Urine, Clean Catch Color Urine Yellow Appearance Urine Clear PH 5.5 5.0-9.0 Glucose Urine UA 500 Negative mg/dL Urine Blood Negative Negative Specific [place] - Urine 1.015 1.005-1.025 Urine Protein Trace Neg-Trace mg/dL Urine Ketones Negative Negative mg/dL Nitrite Urine Negative Negative Leukocyte Esterase Urine Large (3+) Negative RBC Urine 0-2 0-2 /HPF WBC Urine 11-20 0-5 /HPF Squamous Epithelial Cell Urine 0-2 0-2 /HPF Bacteria Urine Trace None Seen Hyaline Casts Urine 3-5 0-2 /LPF REASON FOR VISIT annual visit Medications Medication SIG (Take, Route, Frequency, Duration) Notes Start Date End Date Status Valsartan-hydroCHLOROthia zide 160-12.5 MG TAKE 1 TABLET ONCE DAILY for 90 Active Vitamin D 50 MCG (1999) 1 tablet Orally Once a day for 30 day(s) 03/07/2020 Active glipiZIDE 10 MG take 1 tablet by twice a day Orally twice a day for 90 days Active metFORMIN HCl ER 500 mg 2 tablet Orally twice a day for 90 days Active OneTouch Ultra - USE TO TEST BLOOD HAGAN GAR THREE TIMES A DAY 90 DAYS for 30 Active Triamcinolone Acetonide 0.025 % 1 application to affected area Externally once a day or as needed Not-Taking Atorvastatin Calcium 40 MG TAKE 1 TABLET ONCE DAILY for 90 Active Metoprolol Succinate ER 100 mg take 1 tablet daily Orally Once a day for 90 days Active Social History Tobacco Use: Social History [...] Interpretation Negative Vital Signs Blood pressure systolic 132 mm Hg 09/02/20 25 Blood pressure diastolic 54 mm Hg 025 Height 59.50 in 09/02/2025 Weight 128 lbs 09/02/2025 BMI 25.42 kg/m2 09/02/2025 Encounters Encounter Location Date Provider Diagnosis Nikita Tran MD [address] [place] [address] [place] [phone] 09/02/2025 Nikita Tran Adult general medica l examination Z00.00 ; Type 2 diabetes mellitus without complication, without long-term current use of insulin E11.9 ; Essential hypertension I10 and Pure hypercholesterolemia E78.00 Assessments Encounter Date Diagnosis (ICD Code) Assessment Notes Treatment Notes Treatment Clinical Notes Section Notes 09/02/2025 Adult general medica l examination (ICD-10 - Z00.00) 09/02/2025 Type 2 diabetes bettye itus without complication, without long-term current use of insulin (ICD-10 - E11.9) 09/02/2025 Essential hypertensi on (ICD-10 - I10) 09/02/2025 Pure hypercholesterolemia (ICD-10 - E78.00) Plan Of Treatment Next Appt Details Provider Name:Nikita peralta, 02/23/2026 08:00:00 AM, [address] [place] [address], [address], [phone], Provider Name:Nikita peralta, 03/03/2026 01:30:00 PM, [address] [place] [address], [address], [phone], Provider Name:Nikita peralta, 08/29/2026 07:30:00 AM, [address] [place] [address], [address], [phone], Provider Name:Nikita peralta, 09/05/2026 01:00:00 PM, [address] [place] [address], [address], [phone], Progress Notes * AIMEHEIDYNatanael LEYVAStephanieB:[birth year] (80 yo F)Acc No.[id number]:09/02/2025 Progress Notes Patient: Nita BOSS Provider: Gilberto Tran MD :1945 A ge:80 Y S ex:Female Date:09/02/2025 Address:[address] [place], [place] [phone] Subjective: * Chief Complaints: * A nnual [...] N one. S ymptom(s): patient is a 80yo female here for annual visit with review of recent labs and follow up of chronci issues. * ROS: G eneral/Constitutional: Change in appetite d enies. C hills d enies. F ever d enies. O phthalmologic: Blurred vision d enies. D ischarge d enies. P ain d enies. E NT: Decreased hearing d enies. S ore throat d enies.?Swollen glands d enies. E ndocrine: Cold intolerance [...] U rinary incontinence D enies. M usculoskeletal: Painful joints d enies. W eakness d enies. ? S kin: Dry skin d enies. I [...] cups per day. Children: yes. Exercise: yes, climbs her stairs. Housing: owning. Living with: spouse. Marital status: . Occupation: works full-time. Pets: dogx1. * Medications: T akingVitamin D 50 MCG (1999) Tablet 1 tablet Orally Once a day Valsartan-hydroCHLOROthiazide 160-12.5 MG Tablet TAKE 1 TABLET ONCE DAILY OneTouch Ultra - Strip USE TO TEST BLOOD SUGAR THREE TIMES A DAY 90 DAYS metFORMIN HCl ER 500 mg Tablet Extended Release 24 Hour 2 tablet Orally twice a day glipiZIDE 10 MG Tablet take 1 tablet by mouth twice a day Orally twice a day Metoprolol Succinate ER 100 mg Tablet Extended Release 24 Hour take 1 tablet daily Orally Once a day Atorvastatin Calcium 40 MG Tablet TAKE 1 TABLET ONCE DAILY Taking Vitamin D 50 MCG (1999) Tablet 1 tablet Orally Once a day Taking Valsartan-hydroCHLOROthiazide 160-12.5 MG Tablet TAKE 1 TABLET ONCE DAILY Taking OneTouch Ultra - Strip USE TO TEST BLOOD SUGAR THREE TIMES A DAY 90 DAYS Taking metFORMIN HCl ER 500 mg Tablet Extended Release 24 Hour 2 tablet Orally twice a day Taking glipiZIDE 10 MG Tablet take 1 tablet by mouth twice a day Orally twice a day Taking Metoprolol Succinate ER 100 mg Tablet Extended Release 24 Hour take 1 tablet daily Orally Once a day Taking Atorvastatin Calcium 40 MG Tablet TAKE 1 TABLET ONCE DAILY [...] Vitals: H t: 59.50, Wt: 128, BMI:25.42, BP:132/54, Wt-k.06. * P ast Orders: L ab:Complete Blood Count Auto Diff (Order Date - 08/26/2025) (Collection Date & Time - 08/26/2025 07:30 AM) Value Reference Range White Blood Count 8.5 4.8-10.8 - X10*3/uL Red Blood Count 3.91 L 4.20-5.50 - X10*6/uL Hemoglobin 12.4 12.0-16.0 - g/dl Hematocrit 37.3 37.0-47.0 - % Mean Corpuscular Volume 95.4 80.0-98.0 - fL Mean Corpuscular Hemoglobin 31.7 27.0-33.0 - pg Mean Corpuscular HGB Conc 33.2 31.0-35.0 - g/ dl Red Cell Distribution Width 12.4 11.0-16.0 - % Platelet Count 270 160-400 - X10*3/uL Mean Platelet Volume 11.0 9.4-12.3 - fL Neutrophils Percent Auto 55.1 45-73 - % Imm Gran Pct Auto 0.4 0.0-0.4 - % Lymphocytes Percent Auto 33.7 20-40 - % Monocytes Percent Auto 8.1 2-11 - % Eosinophils Percent Auto 2.1 0-4 - % Basophils Percent Auto 0.6 0-2 - % NRBC Pct Auto 0.0 0.0-0.2 - /100WBC Neutrophils Absolute Auto 4.7 2.0-8.3 - x10* 3/uL Imm Gran Abs Auto 0.03 0.00-0.03 - X10*3/uL Lymphocytes Absolute Auto 2.9 1.2-4.9 - X10* 3/uL Monocytes Absolute Auto 0.7 0.1-1.2 - X10*3/ uL Eosinophils Absolute Auto 0.2 0.0-0.4 - X10* 3/uL Basophils Absolute Auto 0.1 0.0-0.2 - X10*3/ uL NRBC Abs Auto 0.000 0.0-0.012 - X10*3/uL L ab:Hemoglobin A1c (Order Date - 08/26/2025) (Collection Date & Time - 08/26/2025 07:30 AM) Value Reference Range Hemoglobin A1c % 8.6 H <6.0 - % Estimated Average Glucose 200 - mg/dL L ab:Lipid Panel (Order Date - 08/26/2025) (Collection Date & Time - 08/26/2025 07:30 AM) Value Reference Range Triglycerides 113 <150 - mg/dL Cholesterol 136 <200 - mg/dL LDL Cholesterol Calculated 67 <100 - mg/dL HDL Cholesterol 47 >40 - mg/dL L ab:Comprehensive [place]. Panel Fast (Order Date - 08/26/2025) (Collection Date & Time - 08/26/2025 07:30 AM) Value Reference Range Sodium 141 135-145 - mmol/L Bilirubin Total 0.5 0.0-1.0 - mg/dL Aspartate Amino Transferase 35 H 5-31 - U/L Alanine Aminotransferase 18 0-31 - U/L Total Protein 6.9 6.5-8.0 - g/dL Albumin Level 4.3 3.5-5.0 - g/dL Alkaline Phosphatase 91 39-117 - U/L Potassium 4.6 3.3-5.1 - mmol/L Chloride 105 96-108 - mmol/L Carbon Dioxide 27 22-29 - mmol/L Anion Gap 14 12-20 - Blood Urea Nitrogen 21 H 9-16 - mg/dL Creatinine 0.91 0.5-1.4 - mg/dL Estimated Glomerular Filt Rate 59 - Glucose Fasting 117 H 60-99 - mg/dL Calcium 9.8 8.4-10.2 - mg/dL L ab:Vitamin D 25-OH Total (Order Date - 08/26/2025) (Collection Date & Time - 08/26/2025 07:30 AM) Value Reference Range Vitamin D 25-OH Total 52.7 >30 - ng/mL * Examination: G eneral Examination: GENERAL APPEARANCE: [...] exam intact. Assessment: * Assessment: 1. A dult general medical examination - Z00.00 (Primary) 2 . T ype 2 diabetes mellitus without complication, without long-term current use of insulin - E11.9 3 . E ssential hypertension - I10 4 . P ure hypercholesterolemia - E78.00? Plan: * Treatment: 2. T ype 2 diabetes mellitus without complication, without long-term current use of insulin L AB: Microalbumin, Random (Collection Date & Time - 09/02/2025 01:00 PM) L AB: UA ClnCatch+Micro w/rflx Cult (Collection Date & Time - 09/02/2025 01:00 PM) 3. E ssential hypertension L AB: Microalbumin, Random (Collection Date & Time - 09/02/2025 01:00 PM) L AB: UA ClnCatch+Micro w/rflx Cult (Collection Date & Time - 09/02/2025 01:00 PM) 4. P ure hypercholesterolemia L AB: Microalbumin, Random (Collection Date & Time - 09/02/2025 01:00 PM) L AB: UA ClnCatch+Micro w/rflx Cult (Collection Date & Time - 09/02/2025 01:00 PM) * Procedure Codes: * Preventive Medicine: Diabetes Care Plan: P atient Lifestyle Goals N eeds to maintain diet control.?Treatment Goals A 1C< 7. B arriers N eeds better diet control. E xpected Outcome m aintaining stable blood sugar levels within a target range. * * Sign off status: Completed true * Provider: Gilberto Tran MD Date: Generated for Alcira tomlinson/Aayush/eTransmitting on: 03:50 PM EDT History and Physical Notes * HPI (History of Present Illness) Category Sub-Category Detail Notes Category Not es Symptom(s) patient is a 80 yo female here for annual visit with review of recent labs and follow up of chronci issues Depression Screening PHQ-9 Little inte rest or [...]
--- OUTSIDE RECORDS SUMMARY | 2025-09-08 05:15 | XMS_ITS ---
Author Organization Nikita Tran MD Address [address] [place] [phone] Care Team Providers Care Senior Integration Architect Name Role Phone Nikita Tran Primary Care Provider [phone] Results Component Value Reference Range Notes UA ClnCatch+Micro w/rflx Cul t (Not yet reviewed by provider) Interpretation: Performing Lab:[facility], [address] [place] [phone] Notes/Report: Urine, Clean Catch Color Urine Yellow Appearance Urine Clear PH 5.5 5.0-9.0 Glucose Urine UA Negative Negative mg/dL Urine Blood Negative Negative Specific [place] - Urine 1.010 1.005-1.025 Urine Protein Negative Neg-Trace mg/dL Urine Ketones Negative Negative mg/dL Nitrite Urine Negative Negative Leukocyte Esterase Urine Negative Negative RBC Urine 0-2 0-2 /HPF WBC Urine 0-5 0-5 /HPF Squamous Epithelial Cell Urine 0-2 0-2 /HPF Bacteria Urine None Seen None Seen Hyaline Casts Urine 0-2 0-2 /LPF REASON FOR VISIT u/a Encounters Encounter Location Date Provider Diagnosis Nikita Tran MD [address] [place] [id number] 09/08/2025 Nikita Tran UTI (urinary tract infection) N39.0 Assessments Encounter Date Diagnosis (ICD Code) Assessment Notes Treatment Notes Treatment Clinical Notes Section Notes 09/08/2025 UTI (urinary tract infection) (ICD-10 - N39.0) Plan Of Treatment Pending Test Test Name Order Date UA ClnCatch+Micro w/rflx Cult 09/08/2025 Next Appt Details Provider Name:Nikita Sosa dereckr, 02/23/2026 08:00:00 AM, [address] [place] [address], Suite [facility], [place], [place], [phone], Provider Name:Nikita Sosa ier, 03/03/2026 01:30:00 PM, [address] [place] [address], Suite [facility], [place], [place], [phone], Provider Name:Nikita Sosa ier, 08/29/2026 07:30:00 AM, [address] [place] [address], Suite [facility], [place], [place], [phone], Provider Name:Nikita Sosa ier, 09/05/2026 01:00:00 PM, [address] [place] [address], [place] [address], [place], [place], [phone], Progress Notes * Natanael GUERREROStephanieB:[birth year] (80 yo F)Acc No.[id number]:09/08/2025 Progress Note Patient: Nita BOSS Provider: Gilberto Tran MD :1945 A ge:80 Y S ex:Female Date:09/08/2025 Address:[address] [place] [address] Subjective: * Chief Complaints: * 1 . U/a. * Medical History: Objective: * Vitals: Assessment: * Assessment: 1. U TI (urinary tract infection) - N39.0 (Primary) Plan: * Treatment: * * The named appointment provid er may or may not be the originator of this progress note, and it is not deemed complete until electronically signed by the appointment provider. Sign off status: Pending * Provider: Gilberto Tran MD Date: Generated for Alcira tomlinson/Aayush/eTronsmitting on: 03:49 PM EDT
[2025-09-08 14:08] LABS: Appearance Urine Clear; Glucose Urine UA Negative (Negative); PH 5.5 (5.0-9.0); Specific Gravity - Urine 1.010 (1.005-1.025)
--- OUTSIDE RECORDS SUMMARY | 2025-09-08 15:49 | XMS_ITS | Patient Health Record ---
Author Organization Nikita Tran MD Address [address] [place], [place] [id number] Care Team Providers Care Densitometer Reader Name Role Phone Nikita Tran Primary Care Provider Allergies Allergen (clinical drug ingredient) Drug/Non Drug Allergy documented on EMR Reaction Allergy Type Onset Date Status Latex Gloves redness above lip and on top of ears Drug Allergy Active Results Component Value Reference Range Notes Liver Panel Reviewed date:02/28/2025 04:27:49 PM Interpretation: Performing Lab:[facility], [address] [place] [phone] Notes/Report: Bilirubin Total 0.5 0.0-1.0 mg/dL Bilirubin Direct 0.2 0.0-0.5 mg/dL Aspartate Amino Transferase 40 5-31 U/L Alanine Aminotransferase 23 0-31 U/L Total Protein 7.1 6.5-8.0 g/dL Albumin Level 4.0 3.5-5.0 g/dL Alkaline Phosphatase 101 39-117 U/L Glucose Fasting Reviewed date:02/28/2025 04:27:41 PM Interpretation: Performing Lab:[facility], [address] [place] [phone] Notes/Report: Glucose Fasting 136 60-99 mg/dL A fasting glucose of 126 mg/dl or greater on more than one occasion is considered diagnostic of diabetes. Lipid Panel with Reflex Reviewed date:02/28/2025 04:27:32 PM Interpretation: Performing Lab:[facility], [address] [place] [phone] Notes/Report: Triglycerides 151 <150 mg/dL Desirable Triglyceride: [...] A1c Reviewed date:02/25/2025 07:20:02 PM Interpretation: Performing Lab:[facility], [address] [place] [phone] Notes/Report: Hemoglobin A1c % 9.9 <6.0 % [...] average glucose, using the formula of the L2I-Cptwvln Average Glucose study (ADAG), Diabetes Care, Vol.31,#8, Jun. 2007 Complete Blood Count Auto Di ff Reviewed date:08/26/2025 12:48:08 PM Interpretation: Performing Lab:[facility], [address] [place] [phone] Notes/Report: White Blood Count 8.5 4.8-10.8 X10*3/uL [...] NRBC Abs Auto 0.000 0.0-0.012 X10*3/uL Comprehensive [place]. Panel Fa st Reviewed date:08/26/2025 03:46:11 PM Interpretation: Performing Lab:[facility], [address] [place] [phone] Notes/Report: Sodium 141 135-145 mmol/L Potassium 4.6 [...] Panel Reviewed date:08/26/2025 03:44:48 PM Interpretation: Performing Lab:[facility], [address] [place] [phone] Notes/Report: Triglycerides 113 <150 mg/dL Desirable Triglyceride: [...] Total Reviewed date:08/26/2025 03:45:06 PM Interpretation: Performing Lab:[facility], [address] [place] [phone] Notes/Report: Vitamin D 25-OH Total 52.7 >30 [...] A1c Reviewed date:08/26/2025 12:42:09 PM Interpretation: Performing Lab:[facility], [address] [place] [phone] Notes/Report: Hemoglobin A1c % 8.6 <6.0 % [...] average glucose, using the formula of the T7O-Ftjvhnj Average Glucose study (ADAG), Diabetes Care, Vol.31,#8, Jun. 2007 UA ClnCatch+Micro w/rflx Cul t (Not yet reviewed by provider) Interpretation: Performing Lab:[facility], [address] [place] [phone] Notes/Report: Urine, Clean Catch Color Urine Yellow Appearance Urine Clear PH 5.5 5.0-9.0 Glucose Urine UA Negative Negative mg/dL Urine Blood Negative Negative Specific Weiser - Urine 1.010 1.005-1.025 Urine Protein Negative Neg-Trace mg/dL Urine Ketones Negative Negative mg/dL Nitrite Urine Negative Negative Leukocyte Esterase Urine Negative Negative RBC Urine 0-2 0-2 /HPF WBC Urine 0-5 0-5 /HPF Squamous Epithelial Cell Urine 0-2 0-2 /HPF Bacteria Urine None Seen None Seen Hyaline Casts Urine 0-2 0-2 /LPF Glucose, finger stick Reviewed date:03/10/2025 01:39:17 PM Interpretation: Performing Lab: Notes/Report: Value 128 Microalbumin, Random Reviewed date:09/02/2025 04:41:19 PM Interpretation: Performing Lab:[facility], [address] [place] [phone] Notes/Report: Creatinine Urine 57.41 Microalbumin Urine 98.0 Microalbum/Creatinine Ratio Ur 170.7 <30 ug/mg cr Albumin/Creatinine Ratio Reference Ranges: Normal: < 30 ug/mg creatinine Microalbuminuria: 30 - 300 ug/mg creatinine Clinical Albuminuria: > 300 ug/mg creatinine UA ClnCatch+Micro w/rflx Cul t Reviewed date:09/02/2025 04:47:51 PM Interpretation: Performing Lab:[facility], [address] [place] [phone] Notes/Report: Urine, Clean Catch Color Urine Yellow Appearance Urine Clear PH 5.5 5.0-9.0 Glucose Urine UA 500 Negative mg/dL Urine Blood Negative Negative Specific Weiser - Urine 1.015 1.005-1.025 Urine Protein Trace Neg-Trace mg/dL Urine Ketones Negative Negative mg/dL Nitrite Urine Negative Negative Leukocyte Esterase Urine Large (3+) Negative RBC Urine 0-2 0-2 /HPF WBC Urine 11-20 0-5 /HPF Squamous Epithelial Cell Urine 0-2 0-2 /HPF Bacteria Urine Trace None Seen Hyaline Casts Urine 3-5 0-2 /LPF Jamie Grady Reviewed date:02/25/2025 07:11:00 PM Interpretation: Performing Lab:[facility], [address] [place] [phone] Notes/Report: Jamie Grady See Note Specimen held untested for 24 hours; Call to request Chemistry testing. Jamie rGady Reviewed date:08/26/2025 12:42:26 PM Interpretation: Performing Lab:[facility], [address] [place] [phone] Notes/Report: Jamie Grady See Note Specimen held untested for 24 hours; Call to request Chemistry testing. Urine Culture Reviewed date:09/06/2025 01:11:03 PM Interpretation: Performing Lab:[facility], [address] [place] [phone] Notes/Report: O:PSESPE Pseudomonas species Urine Culture Quant Urine Culture 50,000 to 100,000 cfu/mL Meropenem <=0.25 Reason For Referral No Information Medications Medication [...] glipiZIDE 10 MG take 1 tablet by th twice a day Orally twice a [...] ed pt was given the vaccine at [facility] in [facility]. PPSV23 (Pnemovax) IM Intramuscular 01/12/2019 Administered Fluarix Quadrivalent IM Intramuscular 07/19/2019 Administe [place] Prevnar 13 IM Intramuscular 01/17/2020 Administered Influenza High Dose Unknown 08/31/2020 Administered [facility] SARS-COV-2 Pfizer Unknown 10/10/2021 Administered [facility] SARS-COV-2 Pfizer Unknown 12/19/2020 Administered SARS-COV-2 Pfizer Unknown 01/09/2021 Administered Influenza High Dose Unknown 09/27/2021 Administered SARS-COV-2 Pfizer Unknown 03/16/2022 Administered Influenza High Dose Unknown 10/24/[address] [employer] [facility] Influenza High Dose Unknown 08/11/2023 Administered [...] Problem Status W/U Status Risk Notes Problem 87102312 Vitamin D defici ency (E55.9) Active confirmed Problem Perimenopausal disorder (279495328) Other specified menopausal and perimenopausal disorders (N95.8) Active confirmed Problem 79057720 Essential hypert ension (I10) Active confirmed Problem 224367582 Pure hypercholesterolemia (E78.00) Active confirmed Problem 270303561 Type 2 diabetes mellitus without complication, without long-term current use of insulin (E11.9) Active confirmed Problem 37406285 Hearing loss, unspecified hearing loss type, unspecified laterality (H91.90) Active confirmed Vital Signs Blood pressure diastolic 54 mm Hg 09/02/2025 Height 59.50 in 09/02/2025 Blood pressure systolic 132 mm Hg 09/02/2025 Weight 128 lbs 09/02/2025 BMI 25.42 kg/m2 09/02/2025 Encounters Encounter Location Date Provider Diagnosis Nikita Tran MD [address] [place] [id number] 02/25/2025 Nikita Tran Pure hypercholestero lemia E78.00 and Type 2 diabetes mellitus without complication, without long-term current use of insulin E11.9 Nikita Tran MD [address] [place] [id number] 08/26/2025 Nikita Tran Blood tests for rout ine general physical examination Z00.00 ; Type 2 diabetes mellitus without complication, without long-term current use of insulin E11.9 ; Pure hypercholesterolemia E78.00 and Vitamin D deficiency E55.9 Nikita Tran MD [address] [place] [id number] 09/08/2025 Nikita Tran UTI (urinary tract infection) N39.0 Nikita Tran MD [address] [place] [address] [id number] 03/10/2025 Nikita Tran Type 2 diabetes bettye itus without complication, without long-term current use of insulin E11.9 and Pure hypercholesterolemia E78.00 Nikita Tran MD [address] [place] [id number] 09/02/2025 Nikita Tran Adult general medica l examination Z00.00 ; Type 2 diabetes mellitus without complication, without long-term current use of insulin E11.9 ; Essential hypertension I10 and Pure hypercholesterolemia E78.00 Nikita Tran MD [address] [place] [address] [place] [phone] 04/05/2025 Nikita Tran Type 2 diabetes bettye itus without complication, without long-term current use of insulin E11.9 and Essential hypertension I10 Nikita Tran MD [address] [place] [id number] 05/20/2025 Nikita Tran Assessments Encounter Date Diagnosis (ICD Code) Assessment Notes Treatment Notes Treatment Clinical Notes Section Notes 02/25/2025 Pure hypercholesterolemia (ICD-10 - E78.00) 08/26/[address] ine general physical examination (ICD-10 - Z00.00) 09/08/2025 UTI (urinary tract infection) (ICD-10 - N39.0) 03/10/2025 Type 2 diabetes bettye itus without complication, without long-term current use of insulin (ICD-10 - E11.9) running high, will continue current regiment, advised on diet and exercise, will continue to monitor 09/02/2025 Adult general medica l examination (ICD-10 - Z00.00) 04/05/2025 Type 2 diabetes bettye itus without complication, without long-term current use of insulin (ICD-10 - E11.9) 02/25/2025 Type 2 diabetes bettye itus without complication, without long-term current use of insulin (ICD-10 - E11.9) 08/26/2025 Type 2 diabetes bettye itus without complication, without long-term current use of insulin (ICD-10 - E11.9) 03/10/2025 Pure hypercholesterolemia (ICD-10 - E78.00) stable, will cntinue current regiment 09/02/2025 Type 2 diabetes bettye itus without complication, without long-term current use of insulin (ICD-10 - E11.9) 04/05/2025 Essential hypertensi on (ICD-10 - I10) 08/26/2025 Pure hypercholesterolemia (ICD-10 - E78.00) 09/02/2025 Essential hypertensi on (ICD-10 - I10) 08/26/2025 Vitamin D deficiency (ICD-10 - E55.9) 09/02/2025 Pure hypercholesterolemia (ICD-10 - E78.00) Plan Of Treatment Pending Test Test Name Order Date Electrocardiogram (EKG) 01/15/2019 MAMMOGRAM DIGITAL BILATERAL SCREEN 08/26 Microalbumin, Random 08/26/2025 UA ClnCatch+Micro w/rflx Cult 08/26/2025 UA ClnCatch+Micro w/rflx Cult 09/08/2025 Next Appt Details Provider Name:Nikita Sosa ier, 02/23/2026 08:00:00 AM, [address] [place] [address], [address], [place], [place], [phone], Provider Name:Nikita Sosa ier, 03/03/2026 01:30:00 PM, [address] [place] [address], [address] [facility], [place], [place], [phone], Provider Name:Nikita Sosa ier, 08/29/2026 07:30:00 AM, [address] [place] [address], [address] [facility], [place], [place], [phone], Provider Name:Nikita Sosa ier, 09/05/2026 01:00:00 PM, [address] [place] [address], [address], [place], [place], [phone], Insurance Providers Payer Name Payer Address Payer Phone Subscriber Number Group Number Insured Name Patient Relationship to Insured Coverage Start Date Coverage End Date [facility] [address] [place], [place] [phone] [id number] Nita Calvo Self - patient is the insured MEDICARE [address] [place] [address] [id number] Nita Calvo Self - patient is the insured Medical (General) History Surgical History Surgery Date(Month/Year) tubal ligation 1974 bilateral cataract extraction 2013
== END 2025-09-08 12:58 | disposition home or self-care (01) ==
LOC: HO.LNP 12:57
PROVIDERS: Visit Provider Internal Medicine
DX: N39.0 Urinary tract infection, site not specified (principal)
CPT/HCPCS: 81001